=== PATIENT | female | born 1965 | race Caucasian/White ===

== ENCOUNTER 2021-08-19 08:16 | Inpatient (IN) | payer BC, SELFPAY ==
[2021-08-19 08:32] VITALS: BP 121/82; PULSE 104; RESP 16; TEMP 36.8; O2SAT 100; BMI 54.9
--- NOTE | 2021-08-19 09:01 | ED_ITS ---
HPI - Abdominal Pain General Time Seen by Provider: 09:00 Date Seen: 08/19/21 Chief Complaint: Abdominal Pain Stated Complaint: Diverticulitis Attack Time Seen by Provider: 08/19/21 08:24 Source: patient and old records reviewed Mode of arrival: ambulatory Limitations: no limitations History of Present Illness HPI narrative: 55-year-old female with history of sigmoiddiverticulitis with microperforation for the 1st time in March of 2021 that necessitated hospitalization returns to the emergency room today for right lower quadrant pain. Patient notes that she was hospitalized and placed on Zosyn but then had an allergy to Zosyn. She was then switched to ertapenem. She recovered but since that time has been experiencing ongoing nausea that has been fairly persistent. And when she walks she does get right lower quadrant pain. She notes the onset of right lower quadrant pain with no activity last night with associated nausea and significant pain. She tried to use acetaminophen but it did not help. She did not have any antibiotics at home to start on. She notes that she finally did see the GI specialist last week and is scheduled for a CT scan 1 week from today. The plan was then to follow up with colonoscopy. Her last colonoscopy was many years ago but it was normal. She has not had any diarrhea, blood in her stool, fever but has been experiencing some chills. She is otherwise healthy. MD elicited complaint: abdominal pain Pertinent past history: constipation and diverticulitis Onset (ago): day(s) ( Last evening.) Pain Consistency: constant Location: RLQ Severity: moderate Quality: cramping and sharp Radiation: back Migration to: other ( Across the entire lower abdomen.) Exacerbating factors: movement Relieving factors: rest Context: history of similar episodes ( March 2021) Associated symptoms: nausea, vomiting ( denies), diarrhea ( denies), fever ( denies), chills and constipation Treatments prior to arrival: other ( acetaminophen last night 2200 hours) Related Data Hx Last Menstrual Period: menopausal Patient : No Home Medications Medication Instructions Recorded Confirmed estradiol 0.05 mg/24 hr weekly 08/19/21 transdermal patch estradiol 10 mcg vaginal tablet mcg VAGINAL 08/19/21 progesterone micronized 100 mg mg 08/19/21 capsule Allergies Allergy/AdvReac Type Severity Reaction Status Date / Time piperacillin [From Zosyn] Allergy Severe Rash Verified 08/19/21 08:39 tazobactam [From Zosyn] Allergy Severe Rash Verified 08/19/21 08:39 Review of Systems Status of ROS Reports: 10 or more systems reviewed and unremarkable except as noted in History and below Const Reports: chills and fatigue GI Reports: abdominal pain, nausea, constipation and bloating Endo Reports: fatigue PFSH PFS Social History Smoking Status: Never smoker Do you use any of these nicotine containing products: None Second hand tobacco smoke exposure: No How often do you have a drink containing alcohol: monthly or less How many standard drinks containing alcohol do you have on a typical day: 1 or 2 How often do you have six or more drinks on one occasion: Never AUDIT-C Alcohol total score: 1 Non-prescribed substance use: denies use service: No Exam Narrative: Exam Narrative: Const: Vital Signs, click to edit/add: Vital Signs - 24 hr 08/19/21 08:32 Temperature 98.2 F Pulse Rate [Right Pulse Oximeter] 104 H Respiratory Rate 16 Blood Pressure [Ri ght Upper Arm] 121/82 Pulse Oximetry 100 Documenting provider has reviewed patient's vital signs: yes Common normals: average body habitus, oriented x3, no limitations and well nourished General appearance: cooperative and in distress mild Other: very guarded in movement. HENMT: Common normals: head/scalp atraumatic and external ears normal Head and scalp: atraumatic Face and sinus: normal facial exam General ear: hearing grossly impaired External ear: external ears normal Mouth: oral and palatal mucosa normal Throat: posterior oropharynx normal Eye: Common normals: PERRL and conjunctivae normal General eye: normal appearance of both eyes Eyelid: eyelids normal Conjunctiva: conjunctiva(e) normal Sclera: sclerae normal Pupil: PERRL Neck & C-Spine: Common normals: full ROM, no lymphadenopathy and supple Lymph: Lymphatic: no lymphadenopathy noted Chest: Chest: symmetrical chest wall rise Resp: Common normals: normal respiratory effort, no retractions and clear to auscultation bilaterally Auscultation: clear to auscultation bilaterally Cardio: Common normals: regular rate and regular rhythm Rate: regular rate Rhythm: regular rhythm GI: Common normals: soft to palpation and no masses Auscultation: hypoactive bowel sounds Palpation: soft and rebound tenderness present Rectal Exam - Female: deferred Other: Patient has no abdominal pain with straight leg raise internal external rotation of the hip. : Common normals: no CVA tenderness Bladder/kidney exam: no CVA tenderness Back & Pelvis: Common normals: no CVA tenderness Neuro: Common normals: oriented x3 Psych: Common normals: mental status grossly normal, thought process normal and speech normal Appearance: grossly normal Activity/motor behavior: appropriate eye contact Speech: normal speech Thought process: normal thought process Skin: Common normals: no rashes or lesions noted General skin exam: no rashes or lesions noted Course Course Hospital Course: Patient is noted to be feeling better after morphine, fluids and Zofran. Vital Signs Vital signs: Initial Vital Signs Temperature 98.2 F 08/19/21 08:32 Temperature Source Temporal Artery Scan 08/19/21 08:32 Pulse Rate 104 H 08/19/21 08:32 Respiratory Rate 16 08/19/21 08:32 Blood Pressure 121/82 08/19/21 08:32 Blood Pressure Mean 95 08/19/21 08:32 Blood Pressure Position Sitting 08/19/21 08:32 Pulse Oximetry 100 08/19/21 08:32 Oxygen Delivery Method 08/19/21 08:32 Vital Signs Temperature 98.2 F 08/19/21 08:32 Pulse Rate 104 H 08/19/21 08:32 Respiratory Rate 16 08/19/21 08:32 Blood Pressure 121/82 08/19/21 08:32 Pulse Oximetry 100 08/19/21 08:32 Temperature 98.2 F 08/19/21 08:32 Pulse Rate 104 H 08/19/21 08:32 Respiratory Rate 16 08/19/21 08:32 Blood Pressure 121/82 08/19/21 08:32 Pulse Oximetry 100 08/19/21 08:32 MDM - Abdominal Pain Differential Diagnosis Differential diagnosis: Likely acute appendicitis, constipation, diverticulitis and small bowel obstruction Medical Records Attestation: I reviewed the patient's medical records. Lab Data Lab results narrative: Patient noted to have a leukocytosis to 12.37 but fortunately lactate is normal. CRP is pending. Labs: Lab Results 08/19/21 08/19/21 08/19/21 Range/Units 09:55 09:55 09:55 WBC 12.37 H (4.50-11.00) K/uL RBC 4.99 (4.00-5.20) m/uL Hgb 14.7 (12.0-16.0) gm/dL Hct 44.0 (33.0-51.0) % MCV 88 (80-100) fL MCH 30 (26-34) pg MCHC 33 (32-36) gm/dL RDW Coeff of Jason 12.7 (11.5-15.5) % Plt Count 211 (140-440) K/uL Neut % (Auto) 83.2 H (42.0-72.0) % Lymph % (Auto) 10.8 L (20-44) % [place] % (Auto) 5.6 (0.0-11.0) % Eos % (Auto) 0.2 (0.0-7.0) % Baso % (Auto) 0.1 (0.0-3.0) % Neut # (Auto) 10.30 H (1.7-7.0) K/uL Lymph # (Auto) 1.30 (0.90-2.90) K/uL [place] # (Auto) 0.70 (0.00-0.90) K/UL Eos # (Auto) 0.00 (0.00-0.50) K/uL Baso # (Auto) 0.00 (0.00-0.30) K/uL Abs Immat Gran (auto) 0.01 (0.00-0.30) K/uL Sodium 133 L (135-149) mmol/L Potassium 3.9 (3.6-5.1) mmol/L Chloride 102 (96-114) mmol/L Carbon Dioxide 24 (20-32) mmol/L BUN 14 (7-30) mg/dL Creatinine 0.7 (0.5-1.5) mg/dL Estimated Creat Clear 79.34 Glucose 117 H (60-115) mg/dL Lactate 0.8 (0.5-1.9) mmol/L Calcium 9.5 (8.4-10.6) mg/dL Total Bilirubin 1.0 (0.1-1.5) mg/dL AST 21 (12-35) U/L ALT 17 (4-35) U/L Alkaline Phosphatase 70 (40-150) U/L Total Protein 7.0 (6.0-8.3) g/dL Albumin 4.2 (3.3-5.0) g/dL Amylase 72 (18-89) U/L Lipase (23-300) U/L Urine Color (Yellow) Urine Appearance (Clear) Urine pH (5.0-8.5) Ur Specific [place] (1.000-1.030) Urine Protein (Negative) Urine Glucose (UA) (Negative) Urine Ketones (Negative) Urine Blood (Negative) Urine Nitrite (Negative) Urine Bilirubin (Negative) Urine Urobilinogen (0.2-1.0) Ur Leukocyte Esterase (Negative) Urine RBC (0-2) Urine WBC (0-5) Ur Squamous Epith Cells (None-Few) Urine Bacteria (None) 08/19/21 08/19/21 Range/Units 09:55 10:00 WBC (4.50-11.00) K/uL RBC (4.00-5.20) m/uL Hgb (12.0-16.0) gm/dL Hct (33.0-51.0) % MCV (80-100) fL MCH (26-34) pg MCHC (32-36) gm/dL RDW Coeff of Jason (11.5-15.5) % Plt Count (140-440) K/uL Neut % (Auto) (42.0-72.0) % Lymph % (Auto) (20-44) % [place] % (Auto) (0.0-11.0) % Eos % (Auto) (0.0-7.0) % Baso % (Auto) (0.0-3.0) % Neut # (Auto) (1.7-7.0) K/uL Lymph # (Auto) (0.90-2.90) K/uL [place] # (Auto) (0.00-0.90) K/UL Eos # (Auto) (0.00-0.50) K/uL Baso # (Auto) (0.00-0.30) K/uL Abs Immat Gran (auto) (0.00-0.30) K/uL Sodium (135-149) mmol/L Potassium (3.6-5.1) mmol/L Chloride (96-114) mmol/L Carbon Dioxide (20-32) mmol/L BUN (7-30) mg/dL Creatinine (0.5-1.5) mg/dL Estimated Creat Clear Glucose (60-115) mg/dL Lactate (0.5-1.9) mmol/L Calcium (8.4-10.6) mg/dL Total Bilirubin (0.1-1.5) mg/dL AST (12-35) U/L ALT (4-35) U/L Alkaline Phosphatase (40-150) U/L Total Protein (6.0-8.3) g/dL Albumin (3.3-5.0) g/dL Amylase (18-89) U/L Lipase 86 (23-300) U/L Urine Color Yellow (Yellow) Urine Appearance Clear (Clear) Urine pH 8.0 (5.0-8.5) Ur Specific [place] 1.015 (1.000-1.030) Urine Protein Negative (Negative) Urine Glucose (UA) Negative (Negative) Urine Ketones 2+ A (Negative) Urine Blood Negative (Negative) Urine Nitrite Negative (Negative) Urine Bilirubin Negative (Negative) Urine Urobilinogen 0.2 (0.2-1.0) Ur Leukocyte Esterase Negative (Negative) Urine RBC 0-2 (0-2) Urine WBC 0-2 (0-5) Ur Squamous Epith Cells Few (None-Few) Urine Bacteria Few A (None) Imaging Data CT scan - abdomen: My impression: Recurrence of diverticulitis, sigmoid colon. Radiologist's impression: Diverticulitis with microperforation with no evidence of abscess. Discharge Plan Discharge Clinical Impression: Diverticulitis Patient Disposition: Admitted As Inpatient Condition: Stable Activity Level: Activity as Tolerated Discharge Diet: Other Diet Detail: npo
--- NOTE | 2021-08-19 09:27 | CT_ITS ---
Final Report Patient: SAVANNAH JOHNSON Facility:?[facility] Patient ID:?[id number] Site Patient ID:?[id number]. Site :?[id number] Study:?CT Abdomen/Pelvis W/ 71CC [id number] 10:21:03 AM Ordering Physician:?Jody Ford Final Report: INDICATION: Diverticulitis. TECHNIQUE: CT of the abdomen and pelvis with 71 cc Isovue 370 IV contrast. Coronal and sagittal reconstructions. COMPARISON: CT of the abdomen and pelvis 04/13/2021. FINDINGS: Mild diffuse hepatic steatosis. The gallbladder, spleen, pancreas, and adrenal glands are negative. No biliary dilation. Hepatic and portal veins are patent. Symmetric enhancement of the kidneys. Tiny low-attenuation lesion in the lower pole of the left kidney is likely a cyst. No hydronephrosis or ureteral dilation. No obstructing urinary calculi identified. The bladder is normal in appearance. Retroverted uterus. There is focal wall thickening in the distal sigmoid colon with surrounding inflammatory fat stranding (series 2 images 102-107 and series 4, image 37). There are extraluminal gas locules along the right aspect of the sigmoid colon extending to the right pelvic sidewall compatible with localized perforation. No generalized free air. No free-fluid or evidence of abscess. This is in a similar location to prior exam. Negative appendix. No small bowel dilation. Moderate wall thickening of the gastric antrum is likely inflammatory. No lymphadenopathy. The bones are unremarkable. The lung bases are clear. IMPRESSION: 1. Focal wall thickening in the distal sigmoid colon with surrounding inflammatory fat stranding and localized perforation. No evidence of abscess. This is in a similar location to prior exam. Findings likely represent perforated diverticulitis, however colonoscopy is recommended to exclude an underlying mass. 2. Moderate wall thickening of the gastric antrum is likely inflammatory. 3. Mild diffuse hepatic steatosis. Please note that all CT scans at this facility use dose modulation, iterative reconstruction, and/or weight-based dosing when appropriate to reduce radiation dose to as low as reasonably achievable. Dictated by Clover Martinez MD @ 08/19/2021 10:48:21 AM ----- ADDENDUM ----- The report was faxed and confirmed received with Liliana Vera at 10:49 a.m. on 08/19/2021. Dictated by Clover Martinez MD @ Aug 19 2021 11:26AM (Electronic Signature)
[2021-08-19] MEDS: MORPHINE 4 MG/ML INJ IVP (09:57)
[2021-08-19] MEDS: ONDANSETRON 2 MG/ML inj 4 MG IVP ×2 (09:58→15:22)
[2021-08-19] MEDS: 0.9 % SODIUM CHLORIDE 1000 ml 1,000 ML IV (09:59)
[2021-08-19 10:10] LABS: Slide Review Reflex No
[2021-08-19 10:11] LABS: Lactate* 0.8 mmol/L (0.5-1.9)
[2021-08-19 10:16] LABS: Basophils Percent Auto 0.1 % (0.0-3.0); Eosinophils Percent Auto 0.2 % (0.0-7.0); Hemoglobin* 14.7 gm/dL (12.0-16.0); Immature Granulocytes Abs Auto 0.01 K/uL (0.00-0.30); Lymphocytes Percent Auto 10.8 % (20-44); Mean Corpuscular HGB Conc 33 gm/dL (32-36); Mean Corpuscular Hemoglobin 30 pg (26-34); Mean Corpuscular Volume 88 fL (80-100); Monocytes Percent Auto 5.6 % (0.0-11.0); Neutrophils Percent Auto 83.2 % (42.0-72.0); Platelet Count* 211 K/uL (140-440); RDW Coefficient of Variation % 12.7 % (11.5-15.5); Red Blood Count 4.99 m/uL (4.00-5.20); White Blood Count* 12.37 K/uL (4.50-11.00)
[2021-08-19 10:21] LABS: Appearance Urine Clear (Clear); Bilirubin Urine Negative (Negative); Blood Urine Negative (Negative); Color Urine Yellow (Yellow); Glucose Urine Negative (Negative); Ketones Urine 2+ (Negative); Leukocyte Esterase Urine Negative (Negative); Nitrite Urine Negative (Negative); Protein Urine Negative (Negative); Specific Gravity Urine 1.015 (1.000-1.030); Urobilinogen Urine 0.2 (0.2-1.0)
[2021-08-19 10:29] LABS: RBC Urine 0-2 (0-2); WBC Urine 0-2 (0-5)
[2021-08-19 10:30] LABS: Bacteria Urine Few; Squamous Epithelial Cell Urine Few (None-Few)
[2021-08-19 10:36] LABS: Albumin* 4.2 g/dL (3.3-5.0); Chloride* 102 mmol/L (96-114)
[2021-08-19 10:37] LABS: Potassium* 3.9 mmol/L (3.6-5.1); Sodium* 133 mmol/L (135-149)
[2021-08-19 10:39] LABS: Amylase* 72 U/L (18-89); Aspartate Amino Transferase* 21 U/L (12-35); Carbon Dioxide* 24 mmol/L (20-32); Creatinine* 0.7 mg/dL (0.5-1.5); Est. Creatinine Clearance* 79.34; Estimated Glomerular Filt Rate 102.71; Lipase* 86 U/L (23-300)
[2021-08-19 10:40] LABS: Alanine Aminotransferase* 17 U/L (4-35); Alkaline Phosphatase* 70 U/L (40-150); Blood Urea Nitrogen* 14 mg/dL (7-30); Calcium* 9.5 mg/dL (8.4-10.6); Glucose* 117 mg/dL (60-115)
[2021-08-19 11:51] VITALS: BP 105/71; PULSE 83; RESP 18; O2SAT 97
[2021-08-19] MEDS: ERTAPENEM 1 GM in 0.9 % SODIUM CHLORIDE Mini-bag 100 ML IVPB (11:59)
[2021-08-19 12:05] LABS: C Reactive Protein* 4.2 mg/dL (0.5-1.0)
[2021-08-19 12:44] VITALS: BP 117/72; PULSE 85; RESP 16; TEMP 37.3; O2SAT 100; O2SAT 99; BMI 158.7
[2021-08-19 13:28] LABS: SARS Antigen* negative
[2021-08-19] MEDS: fentaNYL 100 MCG/2 ML inj 50 MCG IVP (13:48)
--- NOTE | 2021-08-19 14:30 | P.IMHP_ITS ---
Hospitalist- H&P: HPI History of Present Illness Date Seen: 08/19/21 Chief complaint: Diverticulitis Attack Narrative: Blossom Horta is a 55 year old female presents emergency room with 1 day history of severe low abdominal pain and right flank pain. Previous history of sigmoid diverticulitis with perforation in March 2021 with similar symptoms at that time. She was treated with a prolonged course of ertapenem and recovered. However she reports she has on and off episodes of right abdomen and flank pain especially when she is going for a walk and relatively persistent nausea since that time. She had a flare of symptoms in mid June and was prescribed Cipro and Flagyl for empiric treatment of diverticulitis. She elected not to take the antibiotics and got better anyway. She has not had a fever. She has had fairly severe nausea. She gets quite a bit of pain when she eats and so has had minimal p.o. intake. She does have a history of problems with constipation. She has been managing this with fiber supplementation and probiotics. She mostly has a bowel movement every day but has had a couple occasions where she has gone up to 9 days without a bowel movement. She had colonoscopy in August of 2019 showing 2- 3 mm polyps which were tubular adenomas. Last week she saw a senior procurement manager from [place] [facility], Dr. Valencia, and had basic blood tests including a normal CBC and basic metabolic panel. She was also screened for celiac disease which was negative. Review of Systems Narrative: Patient reports that she has been doing well other than her gastrointestinal symptoms. She has had no respiratory illness, fever, chest pain. She has not had vomiting though she has had persistent nausea. She has had no urinary problems. Complete review of systems is otherwise unremarkable except as noted above 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 Highest level of school completed/degree received: high school graduate Smoking Status: Never smoker Do you use any of these nicotine containing products: None Second hand tobacco smoke exposure: No How often do you have a drink containing alcohol: monthly or less How many standard drinks containing alcohol do you have on a typical day: 1 or 2 How often do you have six or more drinks on one occasion: Never AUDIT-C Alcohol total score: 1 Non-prescribed substance use: denies use Caffeine: Yes service: No Meds Home Medications and Allergies Home Medications Medication Instructions Recorded Confirmed Type Lactobacillus acidophilus 10 10 mg PO DAILY 08/19/21 08/19/21 History billion cell capsule (Probiotic) PROBIOTIC AND PREBIOTIC 1 sc PO DAILY 08/19/21 08/19/21 History estradiol 0.05 mg/24 hr weekly 1 patch TOPICAL .WEEKLY 08/19/21 08/19/21 History transdermal patch estradiol 10 mcg vaginal tablet 10 mcg VAGINAL 2XW 08/19/21 08/19/21 History multivitamin 1 tab PO DAILY 08/19/21 08/19/21 History progesterone micronized 100 mg 100 mg PO DAILY 08/19/21 08/19/21 History capsule Allergies Allergy/AdvReac Type Severity Reaction Status Date / Time piperacillin [From Zosyn] Allergy Severe Rash Verified 08/19/21 08:39 tazobactam [From Zosyn] Allergy Severe Rash Verified 08/19/21 08:39 Exam Narrative: Exam Narrative: She is alert and appears in no distress when I initially see her but through the history and physical she does have episodes where she reports sharp pain and hold her hand on her right abdomen and right flank. Head is normal. Eyes normal. Sclerae nonicteric. Oropharynx is normal. Mucous membranes are dry. Neck is supple without mass or adenopathy. Respirations are clear to auscultation. Breathing is unlabored. Cardiovascular: S1, S2, regular rate a nd rhythm. No murmur gallop or rub. Abdomen: Bowel sounds active. Abdomen is soft. She has pelvic pain with palpation in the epigastrium and in the right side of her abdomen. Very tender with palpation in the suprapubic area. She has no CVA tenderness. External genitalia normal. Extremities without edema. Good peripheral pulses and good capillary refill. Const: Vital Signs, click to edit/add: Vital Signs - 24 hr 08/19/21 08:32 08/19/21 11:51 08/19/21 12:44 Temperature 98.2 F 99.2 F Pulse Rate [Pulse Oximeter] 85 Pulse Rate [Right Pulse Oximeter] 104 H 83 Respiratory Rate 16 18 16 Blood Pressure [Ri ght Arm] 117/72 Blood Pressure [Ri ght Upper Arm] 121/82 105/71 Pulse Oximetry 100 97 99 Documenting provider has reviewed patient's vital signs: yes Hospitalist - H&P: Result Labs Labs: Short CBC 08/19/21 Range/Units 09:55 WBC 12.37 H (4.50-11.00) K/uL Hgb 14.7 (12.0-16.0) gm/dL Hct 44.0 (33.0-51.0) % Plt Count 211 (140-440) K/uL BMP 08/19/21 09:55 Sodium 133 L Potassium 3.9 Chloride 102 Carbon Dioxide 24 BUN 14 Creatinine 0.7 Glucose 117 H Calcium 9.5 Liver Function 08/19/21 Range/Units 09:55 Total Bilirubin 1.0 (0.1-1.5) mg/dL AST 21 (12-35) U/L ALT 17 (4-35) U/L Alkaline Phosphatase 70 (40-150) U/L Albumin 4.2 (3.3-5.0) g/dL Urine 08/19/21 Range/Units 10:00 Urine Color Yellow (Yellow) Urine Appearance Clear (Clear) Urine pH 8.0 (5.0-8.5) Ur Specific [place] 1.015 (1.000-1.030) Urine Protein Negative (Negative) Urine Glucose (UA) Negative (Negative) Assessment and Plan Assessment and plan (1) Diverticulitis: Problem comment: diverticulitis with micro perforation in March 2021 and July 2021. Status: Acute Assessment and Plan: IV ertapenem initially inpatient until she is able to take in p.o. food and fluids and pain is better controlled than probably outpatient IV ertapenem until abdominal pain is resolved. Consult Dr. Strong
[2021-08-19 15:00] VITALS: PULSE 89; RESP 16
--- NOTE | 2021-08-19 15:07 | P.IMHP_ITS ---
Hospitalist- H&P: HPI History of Present Illness Date Seen: 08/19/21 Chief complaint: Diverticulitis Attack Narrative: Blossom Horta is a 55 year old female, Patient has past medical history of sigmoid diverticulitis and microperforation. Patient did need to be admitted to the hospital in March 2019 due to this. Patient states that on and off since that admission she has had some abdominal pain but overnight had severe right lower quadrant abdominal pain so much that she did think she passed out intermittently at night. Patient also reports nausea but no vomiting. States that she has been eating until yesterday afternoon. After last admission patient did see GI last week and was scheduled for CT scan and follow-up colonoscopy. Reports remote history of colonoscopy which was normal in the past. In the ED CT imaging revealed focal wall thickening in the distal sigmoid colon with surrounding inflammatory fat stranding and localized perforation, no evidence of abscess. Findings likely represent perforated diverticulitis, colonoscopy is recommended to exclude underlying mass. Moderate wall thickening of gastric antrum likely inflammatory, mild diffuse hepatic steatosis. Review of Systems Status of ROS: Reports: 10 or more systems reviewed and unremarkable except as noted in History and below [facility] Medical History Chronic neck pain Gastroesophageal reflux disease Irritable bowel syndrome Surgical History History of wisdom tooth extraction Family History Father Alcohol abuse Mother Alcohol abuse Social History Highest level of school completed/degree received: high school graduate Smoking Status: Never smoker Do you use any of these nicotine containing products: None Second hand tobacco smoke exposure: No How often do you have a drink containing alcohol: monthly or less How many standard drinks containing alcohol do you have on a typical day: 1 or 2 How often do you have six or more drinks on one occasion: Never AUDIT-C Alcohol total score: 1 Non-prescribed substance use: denies use Caffeine: Yes service: No Meds Home Medications and Allergies Home Medications Medication Instructions Recorded Confirmed Type Lactobacillus acidophilus 10 10 mg PO DAILY 08/19/21 08/19/21 History billion cell capsule (Probiotic) PROBIOTIC AND PREBIOTIC 1 sc PO DAILY 08/19/21 08/19/21 History estradiol 0.05 mg/24 hr weekly 1 patch TOPICAL .WEEKLY 08/19/21 08/19/21 History transdermal patch estradiol 10 mcg vaginal tablet 10 mcg VAGINAL 2XW 08/19/21 08/19/21 History multivitamin 1 tab PO DAILY 08/19/21 08/19/21 History progesterone micronized 100 mg 100 mg PO DAILY 08/19/21 08/19/21 History capsule Allergies Allergy/AdvReac Type Severity Reaction Status Date / Time piperacillin [From Zosyn] Allergy Severe Rash Verified 08/19/21 08:39 tazobactam [From Zosyn] Allergy Severe Rash Verified 08/19/21 08:39 Exam Const: Vital Signs, click to edit/add: Vital Signs - 24 hr 08/19/21 08:32 08/19/21 11:51 08/19/21 12:44 Temperature 98.2 F 99.2 F Pulse Rate [Pulse Oximeter] 85 Pulse Rate [Right Pulse Oximeter] 104 H 83 Respiratory Rate 16 18 16 Blood Pressure [Ri ght Arm] 117/72 Blood Pressure [Ri ght Upper Arm] 121/82 105/71 Pulse Oximetry 100 97 99 Documenting provider has reviewed patient's vital signs: yes Common normals: oriented x3 Exam limitations: altered mental status General appearance: cooperative and comfortable HENMT: Common normals: normocephalic Head and scalp: normocephalic Neuro: Common normals: oriented x3 Hospitalist - H&P: Result Labs Labs: Short CBC 08/19/21 Range/Units 09:55 WBC 12.37 H (4.50-11.00) K/uL Hgb 14.7 (12.0-16.0) gm/dL Hct 44.0 (33.0-51.0) % Plt Count 211 (140-440) K/uL BMP 08/19/21 09:55 Sodium 133 L Potassium 3.9 Chloride 102 Carbon Dioxide 24 BUN 14 Creatinine 0.7 Glucose 117 H Calcium 9.5 Liver Function 08/19/21 Range/Units 09:55 Total Bilirubin 1.0 (0.1-1.5) mg/dL AST 21 (12-35) U/L ALT 17 (4-35) U/L Alkaline Phosphatase 70 (40-150) U/L Albumin 4.2 (3.3-5.0) g/dL Urine 08/19/21 Range/Units 10:00 Urine Color Yellow (Yellow) Urine Appearance Clear (Clear) Urine pH 8.0 (5.0-8.5) Ur Specific [place] 1.015 (1.000-1.030) Urine Protein Negative (Negative) Urine Glucose (UA) Negative (Negative) Assessment and Plan Assessment and plan (1) Diverticulitis: Problem comment: diverticulitis with micro perforation in March 2021 and July 2021 Status: Acute Plan Patient is a 55 Y/O female. Patient comes in due to Acute Diverticulitis. Ertapenem started in the ER, will continue for now. Clear Liquid diet. Advance as tolerated tomorrow if pain is improved. DVT ppx- ambulation Code- Full
--- NOTE | 2021-08-19 15:15 | PC.NURSE ---
Patient was admitted from the ED today at 1225 for Diverticulitis. Patient has 8/10 pain in lower abdomen. Has felt nauseous since she had diverticulitis back in March but it has not been to the point where it stops her from doing things. PIV in left AC. No skin concerns. Bowel sounds hypoactive. LBM 08/18 and it was normal. Patient stated that she has constipation and receives fiber for this. Also has a nodule on her thyroid that she had a biopsied last week but they did not get enough tissue. Will need to f/u on this outpatient. Had covid back in june. Antigen test was negative. Patient is alert and oriented and ambulates independently. VSS. Ramone BACA completed admission assessment. Unable to place orders as they do not have access to new expanse from home. IT and Dr. Raya is aware and IT is working with them to fix this. Recieved a 1 time verbal order for 50mcg of Fentanyl from Dr. Harrell.
[2021-08-19 16:53] VITALS: BP 95/53; PULSE 89; RESP 16; TEMP 37.4; O2SAT 100
[2021-08-19] MEDS: LACTATED RINGERS 1000 ML 1,000 ML 125 ML IV (18:36)
[2021-08-19 18:41] LABS: Basophils Percent Auto 0.1 % (0.0-3.0); Eosinophils Percent Auto 0.1 % (0.0-7.0); Hematocrit 40.5 % (33.0-51.0); Hemoglobin* 13.5 gm/dL (12.0-16.0); Immature Granulocytes Abs Auto 0.02 K/uL (0.00-0.30); Lymphocytes Percent Auto 10.8 % (20-44); Mean Corpuscular HGB Conc 33 gm/dL (32-36); Mean Corpuscular Hemoglobin 30 pg (26-34); Mean Corpuscular Volume 90 fL (80-100); Monocytes Percent Auto 5.4 % (0.0-11.0); Neutrophils Percent Auto 83.5 % (42.0-72.0); Platelet Count* 190 K/uL (140-440); RDW Coefficient of Variation % 12.7 % (11.5-15.5); Red Blood Count 4.51 m/uL (4.00-5.20); White Blood Count* 13.77 K/uL (4.50-11.00)
[2021-08-19 18:46] LABS: Slide Review Reflex No
[2021-08-19] MEDS: HYDROmorphone 2 MG TABLET PO ×2 (18:49→20:48)
[2021-08-19 19:02] LABS: Chloride* 103 mmol/L (96-114); Potassium* 4.3 mmol/L (3.6-5.1); Sodium* 133 mmol/L (135-149)
[2021-08-19 19:05] LABS: Carbon Dioxide* 24 mmol/L (20-32); Creatinine* 0.7 mg/dL (0.5-1.5); Est. Creatinine Clearance* 94.28; Estimated Glomerular Filt Rate 102.71
[2021-08-19 19:06] LABS: Blood Urea Nitrogen* 12 mg/dL (7-30); Calcium* 8.9 mg/dL (8.4-10.6); Glucose* 122 mg/dL (60-115)
--- NOTE | 2021-08-19 19:34 | PC.NURSE ---
Pt. alert and oriented x3. Admitted from ED with pain 11/30, here for pain control and on clear diet d/t Diverticulitis flare up started 08/18. One time dose of Fentanyl was administered and pt. reported pain 4/10. After sips of broth and water, pt. reported sharp intense pain greater than 10 and became nauseous. Administered Zofran. Dilaudid was administered for more pain later at 09/30. LR running 125ml/hr. at bedside.
[2021-08-19 20:04] VITALS: BP 108/66; PULSE 94; RESP 18; TEMP 37.7; O2SAT 96
[2021-08-19] MEDS: ENOXAPARIN 40 MG/0.4 ML INJ SUBCUT (20:48)
[2021-08-20] VITALS (10 sets, daily range): BP systolic 99–110; BP diastolic 61–72; PULSE 79–94; RESP 16–18; TEMP 37.1–37.9; O2SAT 97–100
[2021-08-20] MEDS: HYDROmorphone 2 MG TABLET PO ×7 (00:43→22:45)
[2021-08-20] MEDS: LACTATED RINGERS 1000 ML 1,000 ML 125 ML IV ×2 (00:44→09:57)
--- NOTE | 2021-08-20 06:54 | PC.NURSE ---
Shift note: Pt rates pain 8/10, RN treated per eMAR with relief to 3-10, pt is more alert and cheerful this morning.
[2021-08-20 07:48] LABS: Chloride* 104 mmol/L (96-114); Potassium* 4.1 mmol/L (3.6-5.1); Sodium* 135 mmol/L (135-149)
[2021-08-20 07:51] LABS: Creatinine* 0.7 mg/dL (0.5-1.5); Est. Creatinine Clearance* 94.28; Estimated Glomerular Filt Rate 102.71
[2021-08-20] MEDS: ACETAMINOPHEN 325 MG TABLET 650 MG PO (07:51)
[2021-08-20 07:52] LABS: Blood Urea Nitrogen* 9 mg/dL (7-30); Carbon Dioxide* 26 mmol/L (20-32); Glucose* 93 mg/dL (60-115)
[2021-08-20] MEDS: ERTAPENEM 1 GM in 0.9 % SODIUM CHLORIDE Mini-bag 100 ML IVPB (09:01)
--- NOTE | 2021-08-20 10:29 | NUTR.NU ---
Nutrition Update: Patient not appropriate to visit at this time related to diverticulitis diet education. RDN will continue to monitor and attempt to visit at a later date.
--- NOTE | 2021-08-20 10:31 | PM.IMPN1 ---
Progress Note: A&P Assessment and plan (1) Diverticulitis: Problem details: diverticulitis with micro perforation in March 2021 and July 2021. Status: Acute Plan Continue with IV ertapenem. Likely will continue this as an outpatient. General surgery will see her in consultation as an outpatient for scheduling her an elective bowel resection. Subjective Date Seen: 08/20/21 Interval history: LATE ENTRY. DICTATED 09/23, SERVICE WAS 08/20 Daily Progress Note - Hospital Medicine Day #: 2 CC: Continued poor appetite and abdominal distension. However improving from discharge. OVERNIGHT UPDATES FROM STAFF & MED, LAB, IMAGING UPDATES Overnight Blossom had no new fevers. She continued to have some abdominal pain and distension. She is tolerating some sips of clears. She feels overall somewhat improved. Review of Systems: See subjective Cardiac: No new chest pain/pressure/palpitations. Respiratory: no new dyspnea. GI: Continued abdominal distension and pain Objective: Vitals: see above Lungs: Clear. Cardiac: S1S2. Abdomen: Tender to palpation without signs of rebound or acute abdomen. Disposition/Potential discharge - Likely to return to previous living situation. Total time is 15 minutes with greater than 50% spent in counseling and coordination of care.
--- NOTE | 2021-08-20 15:03 | PC.NURSE ---
07-1500: Pt. up indep. in room and yepez this shift. Abdominal pain is tender w/and w/out touch, rated 4-8/10, worse after walking. Low grade temp up to 100.3 this morning, 100.2 1.5 hrs after acetaminophen. 99 degrees later when reassessed. Noting ongoing headache, not really alleviated w/meds. Ice pack, repositioning, aqua-k pad, small amt of coffee, and aromatherapy helpful but did not resolve symptoms. Update left for MD on clipboard. Pt. passing flatus. Tolerated fruit ice, broth, water today. IV patent and running. Mixed gram positive allan noted in urine culture, updated; no new orders. Report to KEMI Santos.
[2021-08-20] MEDS: KETOROLAC 30 MG/ML inj IVP (18:21)
[2021-08-20] MEDS: ENOXAPARIN 40 MG/0.4 ML INJ SUBCUT (20:34)
[2021-08-20] MEDS: Progesterone Micronized 100 mg capsule PO (20:35)
[2021-08-20] MEDS: SODIUM CHLORIDE 0.9 % (FLUSH) 10 ML SYRINGE 5 ML IVF (20:37)
[2021-08-21] MEDS: HYDROmorphone 2 MG TABLET PO ×4 (00:39→11:16)
[2021-08-21] MEDS: KETOROLAC 30 MG/ML inj 15 MG IVP ×3 (00:39→12:53)
[2021-08-21 03:09] VITALS: BP 97/65; PULSE 80; RESP 16; TEMP 36.9; O2SAT 97
--- NOTE | 2021-08-21 05:12 | PC.NURSE ---
NURSE NOTE 19-: Pt is pleasant and cooperative, A&O. T-max 99.2F. Oxygen saturations in the high 90's on room air. Pt reports good pain control from PRN Dilaudid and scheduled Toradol. Pt up independent, taking several walks around the unit. Pt tolerating a clear liquid diet, denies N/V. Denies SOB and CP. Pt hopeful to d/c home today.
[2021-08-21 07:29] LABS: HCO3 VBG 30 mmol/L (21-28); Hematocrit 33.9 % (33.0-51.0); Mean Corpuscular HGB Conc 32 gm/dL (32-36); Mean Corpuscular Hemoglobin 30 pg (26-34); Mean Corpuscular Volume 93 fL (80-100); PCO2 VBG 53 mmHG (40-50); PO2 VBG 28.8 mmHG (25-47); Platelet Count* 167 K/uL (140-440); Red Blood Count 3.66 m/uL (4.00-5.20); White Blood Count* 7.96 K/uL (4.50-11.00); pH VBG 7.353 (7.32-7.43)
[2021-08-21 07:45] LABS: Slide Review Reflex No
[2021-08-21 07:50] LABS: Albumin* 3.1 g/dL (3.3-5.0); Chloride* 104 mmol/L (96-114); Sodium* 134 mmol/L (135-149)
[2021-08-21 07:51] LABS: Potassium* 4.4 mmol/L (3.6-5.1)
[2021-08-21 07:53] LABS: Aspartate Amino Transferase* 17 U/L (12-35); Bilirubin Total* 0.5 mg/dL (0.1-1.5); Blood Urea Nitrogen* 7 mg/dL (7-30); Carbon Dioxide* 29 mmol/L (20-32); Creatinine* 0.6 mg/dL (0.5-1.5); Est. Creatinine Clearance* 92.56; Total Protein* 5.6 g/dL (6.0-8.3)
[2021-08-21 07:54] LABS: Alanine Aminotransferase* 10 U/L (4-35); Alkaline Phosphatase* 48 U/L (40-150); Calcium* 8.6 mg/dL (8.4-10.6); Glucose* 96 mg/dL (60-115); Lipase* 70 U/L (23-300)
[2021-08-21 08:30] VITALS: BP 104/74; PULSE 77; RESP 18; TEMP 36.7; O2SAT 100
[2021-08-21 08:33] LABS: C Reactive Protein* 14.1 mg/dL (0.5-1.0)
[2021-08-21] MEDS: SODIUM CHLORIDE 0.9 % (FLUSH) 10 ML SYRINGE 5 ML IVF ×2 (10:02→12:54)
[2021-08-21] MEDS: ERTAPENEM 1 GM in 0.9 % SODIUM CHLORIDE Mini-bag 100 ML IVPB (10:03)
--- NOTE | 2021-08-21 10:03 | NUTR.NU ---
RDN visited with patient regarding diet for diverticulitis. Patient was received diet education during past hospital visit for diverticulitis on 04/15/21. Patient declined receiving diet educational materials at this time. She reportsstill having the education materials at home from previous visit education including low-fiber and high-fiber nutrition therapy, and RDN's contact information. RDN recommended patient follow a low fiber diet for ~4 weeks or per MD recommendatiosn, and then following a high fiber diet (25-35 grams/day) long-term by slowly increasing grams of fiber daily until goal is met.? She had no questions or concerns at this time.
--- NOTE | 2021-08-21 10:50 | PM.DS1 ---
DS: Providers Provider Time Seen by Provider: 10:49 Date Seen: 08/21/21 Date of admission: 08/19/21 11:48 Primary care physician: Zachary Green PA-C Admitting Clinician: Lyndsay Raya MD Consults: 08/19/21 16:58 Consult to Physician [CONS] Routine Comment: Consulting Provider: Deandre Strong Has provider been notified: Yes Attending Physician on discharge: MD Augustin Harper MD Date of Discharge: 08/21/21 DS: Diagnosis Discharge Diagnosis (1) Diverticulitis: Status: Acute Problem details: diverticulitis with micro perforation in March 2021 and July 2021. DS: Summary Hospital Course Hospital Course: Patient is noted to be feeling better after morphine, fluids and Zofran. Status at Discharge Functional status at discharge: independent ambulation Time Spent with Patient Time attestation: Total time spent providing and/or coordinating discharge services: Time spent: Greater than 30 minutes Exam Narrative: Exam Narrative: 55-year-old female admitted to the hospital with abdominal pain. Initial evaluation showed she had recurrence of perforated diverticulitis in her sigmoid colon. Similar previous episode occurred in March 2021. she was treated with ertapenem and had gradual improvement in her pain the still reporting low abdominal pain today. She also had some symptoms of bladder irritability thought secondary to her inflamed sigmoid colon. Urinalysis was unremarkable. She is currently eating a full liquid diet without increased pain. She has yet to have a bowel movement. Examination today: She is alert and appears in no distress. Breathing is unlabored. Abdomen with bowel sounds are present. Abdomen is soft with still mild to moderate low abdominal tenderness but much improved since admission. Const: Vital Signs, click to edit/add: Vital Signs - 24 hr 08/20/21 11:40 08/20/21 17:21 08/20/21 17:24 Temperature 100 F H 98.9 F Pulse Rate [Pulse Oximeter] 79 79 87 Respiratory Rate 16 16 18 Blood Pressure [Ri ght Arm] 99/67 109/67 Pulse Oximetry 97 100 08/20/21 19:45 08/20/21 23:00 08/21/21 03:09 Temperature 99 F 99.2 F 98.4 F Pulse Rate [Pulse Oximeter] 90 90 80 Respiratory Rate 18 18 16 Blood Pressure [Ri ght Arm] 107/61 104/68 97/65 Pulse Oximetry 99 98 97 Documenting provider has reviewed patient's vital signs: yes DS: Data Data Completed and Pending Labs on day of discharge: Labs from last 24 hours 08/21/21 08/21/21 08/21/21 06:47 06:47 06:47 WBC 7.96 RBC 3.66 L Hgb 11.0 L Hct 33.9 MCV 93 MCH 30 MCHC 32 Plt Count 167 VBG pH 7.353 VBG pCO2 53 H VBG pO2 28.8 VBG HCO3 30 H Sodium 134 L Potassium 4.4 Chloride 104 Carbon Dioxide 29 BUN 7 Creatinine 0.6 Estimated Creat Clear 92.56 Glucose 96 Calcium 8.6 Ionized Calcium Jay 1.20 Total Bilirubin 0.5 AST 17 ALT 10 Alkaline Phosphatase 48 C-Reactive Protein 14.1 H Total Protein 5.6 L Albumin 3.1 L Lipase 70 Discharge Plan Discharge Disposition: Home, Self-Care Date of Admission: 08/19/21 11:48 Attending Provider on Discharge: Ted Bill Consulting Providers: Deandre Strong Primary Care Provider: Zachary Green Condition: Stable Anticipated Discharge Date/Time: 08/21/21 11:03 Discharge Medications: New polyethylene glycol 3350 [Miralax] 17 gram Powder In Packet 17 g PO BID Qty: 237 0RF hydromorphone 2 mg Tablet 2 mg PO Q4H PRNQty: 20 0RF senna 8.6 mg capsule 8.6 mg PO BID Qty: 60 0RF Continued estradiol 0.05 mg/24 hr patch weekly 1 patch topical .WEEKLY 0RF Label Comments: APPLY ONE PATCH EXTERNALLY WEEKLY Rx Instructions: CHANGES ON TUESDAY progesterone micronized 100 mg capsule 100 mg PO DAILY 0RF Label Comments: TAKE 1 CAPSULE BY MOUTH ONE TIME DAILY estradiol 10 mcg tablet 10 mcg VAGINAL 2XW 0RF Label Comments: INSERT 1 TABLET VAGINALLY TWICE WEEKLY Rx Instructions: INSERTS TUE AND multivitamin Tablet 1 tab PO DAILY 0RF PROBIOTIC AND PREBIOTIC 1 sc PO DAILY 0RF Rx Instructions: POWDER Probiotic 10 billion cell capsule 10 mg PO DAILY 0RF Discharge Orders: Discharge Order (Routine); Ordered 08/21/21 Ordered By: Ted Bill Patient Education: Diverticulitis (DC) Activity Level: No Restrictions and Activity as Tolerated Discharge Diet: Low Fiber and Other Diet Detail: low fiber diet for 1 week then high-fiber diet Referrals: Deandre Strong MD [Staff Physician] - ( In 1 week) Forms: [employer] Info Instructions Discharge Comment: outpatient IV antibiotic, ertapenem for 1 week.
[2021-08-21] MEDS: polyethylene glycoL 3350 17 GM PACK PO (11:16)
[2021-08-21 12:00] VITALS: BP 109/73; PULSE 71; RESP 16; TEMP 36.6; O2SAT 99
--- NOTE | 2021-08-21 15:43 | PC.NURSE ---
VSS AND AFEBRILE. PATIENT'S DIET ADVANCED TO LOW FIBER BY LUNCHTIME AND PATIENT HAS TOLERATED DIET WELL WITH NO C/O N/V. ABDOMINAL PAIN CONTROLLED WITH PO DILAUDID AND IV TORADOL. PATIENT AMBULATING FREQUENTLY IN HALLWAY. PATIENT'S SL DC'D AND PLAN IS TO DC WHEN HER CAN PICK HER UP.
--- NOTE | 2021-08-21 20:18 | PC.NURSE ---
1730: reviewed dc instructions with pt . copies of dc instructions given at dc. Belongings reviewed and sent with pt at pa. No IV at pa.
--- NOTE | 2021-09-15 15:32 | PM.IMPN1 ---
Progress Note: A&P Assessment and plan (1) Diverticulitis: Problem details: diverticulitis with micro perforation in March 2021 and July 2021. Status: Acute Assessment and Plan: Clinically improved. Continue inpatient IV antibiotic and pain management. Anticipate discharge to outpatient IV antibiotic in the next couple days. Subjective Date Seen: 08/20/21 Interval history: 55-year-old female seen in followup of hospital admission for recurrent diverticulitis. She reports feeling a little better. Pain is improved. She is tolerating some p.o.. Exam Narrative: Exam Narrative: She is alert and appears in no distress. Still reporting some pain on her right side of her abdomen. Respirations are clear to auscultation. Cardiovascular: S1, S2, regular rate and rhythm. Abdomen: Bowel sounds active. Abdomen is soft. Still moderate tenderness in her suprapubic area. No edema. Good peripheral perfusion. Const: Documenting provider has reviewed patient's vital signs: yes
== END 2021-08-21 17:28 | disposition home or self-care (01) | DRG 244 ==
LOC: ED 11:33 → MEDSURG 11:55
PROVIDERS: Family Medicine; Internal Medicine; Admitting Provider Family Medicine; Emergency Provider Family Medicine; PCP Physician Assistant Medical; Visit Provider Family Medicine
DX: K57.20 Diverticulitis of large intestine with perforation and abscess without bleeding (principal); K76.0 Fatty (change of) liver, not elsewhere classified; K21.9 Gastro-esophageal reflux disease without esophagitis; G89.29 Other chronic pain; M54.2 Cervicalgia; K58.9 Irritable bowel syndrome, unspecified
CPT/HCPCS: 36415; 74177; 80048; 80053; 81001; 82150; 82330; 82803; 83605; 83690; 85025; 85027; 86140; 87086; 87426; 99284; 99285; A9270; J1335; J1650; J1885; J2270; J2405; J3010; J7030; J7120; Q9967

== ENCOUNTER 2021-08-28 10:00 | Outpatient (RCR) | payer BC, SELFPAY ==
[2021-08-22 10:30] VITALS: BP 108/76; PULSE 86; RESP 18; TEMP 37.2; O2SAT 98
[2021-08-22] MEDS: ERTAPENEM 1 GM in 0.9 % SODIUM CHLORIDE Mini-bag 100 ML IVPB (10:53)
[2021-08-23] MEDS: ERTAPENEM 1 GM in 0.9 % SODIUM CHLORIDE Mini-bag 100 ML IVPB (10:20)
[2021-08-23 11:00] VITALS: BP 118/66; PULSE 85; RESP 18; TEMP 36.8; O2SAT 100
[2021-08-24] MEDS: ERTAPENEM 1 GM in 0.9 % SODIUM CHLORIDE Mini-bag 100 ML IVPB (09:56)
[2021-08-24 09:59] VITALS: BP 105/68; PULSE 78; RESP 18; TEMP 36.6; O2SAT 95
--- NOTE | 2021-08-24 10:39 | PC.NURSE ---
out patient infusion. Pt has been pleasant. abd 1-04/02. SL was in the right a/c, it flushed with no problems. IV infused with no problems. Pt wanted the SL out. it was d/c intact. pt walked out with and will be back to [facility] tomorrow for IV antibiotic.
[2021-08-25 10:00] VITALS: BP 104/71; PULSE 76; RESP 16; TEMP 36.9; O2SAT 100
[2021-08-25] MEDS: ERTAPENEM 1 GM in 0.9 % SODIUM CHLORIDE Mini-bag 100 ML IVPB (10:02)
[2021-08-26 09:37] VITALS: BP 94/69; PULSE 98; RESP 18; TEMP 36.8; O2SAT 98
[2021-08-26] MEDS: ERTAPENEM 1 GM in 0.9 % SODIUM CHLORIDE Mini-bag 100 ML IVPB (09:46)
[2021-08-27 09:30] VITALS: BP 104/73; PULSE 69; RESP 16; TEMP 36.1; O2SAT 99
[2021-08-27 09:44] VITALS: BP 104/73; PULSE 69; RESP 16; TEMP 36.1
[2021-08-27] MEDS: ERTAPENEM 1 GM in 0.9 % SODIUM CHLORIDE Mini-bag 100 ML IVPB (10:04)
[2021-08-27] MEDS: SODIUM CHLORIDE 0.9 % (FLUSH) 10 ML SYRINGE IVF (12:57)
[2021-08-27] MEDS: 0.9 % SODIUM CHLORIDE 250 ml IV (12:57)
[2021-08-28 10:06] VITALS: BP 116/80; PULSE 86; RESP 16; TEMP 36.9; O2SAT 99
[2021-08-28] MEDS: ERTAPENEM 1 GM in 0.9 % SODIUM CHLORIDE Mini-bag 100 ML IVPB (10:07)
[2021-08-28] MEDS: SODIUM CHLORIDE 0.9 % (FLUSH) 10 ML SYRINGE IVF (10:07)
[2021-08-28] MEDS: 0.9 % SODIUM CHLORIDE 250 ml IV (10:07)
== END 2021-09-20 23:59 | disposition home or self-care (01) ==
LOC: CCIC 10:00
PROVIDERS: PCP Physician Assistant Medical; Referring Provider Family Medicine; Visit Provider Family Medicine
DX: K57.92 Diverticulitis of intestine, part unspecified, without perforation or abscess without bleeding (principal)
CPT/HCPCS: 96365; 99211; J1335; J7050

== ENCOUNTER 2021-09-10 07:15 | Outpatient (CLI) | payer BC, SELFPAY ==
--- NOTE | 2021-09-10 08:00 | CRLHL7_ITS ---
For Patients: As a result of the Century Cures Act, medical imaging exams and procedure reports are released immediately into your electronic medical record. You may view this report before your referring provider. If you have questions, please contact your health care provider. Indication: diverticulitis, abd pain worsening Technique: Postcontrast CT abdomen and pelvis. Oral water. 69 cc Isovue 370 intravenous contrast. Please note that all CT scans at this facility use dose modulation, iterative reconstruction, and/or weight-based dosing when appropriate to reduce radiation dose to as low as reasonably achievable. Comparison: 08/31/2021, 08/19/2021, 04/13/2021 Findings: Lung bases are clear. Mild dependent atelectasis. No pleural effusion. Mild hepatic steatosis. Focal fat deposition within the liver adjacent to the falciform ligament. Gallbladder normal. Normal spleen. Normal pancreas and adrenal glands. Kidneys and ureters normal. Trace residual inflammatory change noted adjacent to the proximal sigmoid colon without abscess or recurrent perforation. The adjacent appendix is normal. No bowel obstruction. Collapsing cysts within both ovaries. Uterus normal. Normal bladder. No evidence of enteritis or abdominal wall hernia. Osseous structures normal. Impression: Trace residual inflammatory change about the proximal sigmoid colon representing residua of prior inflammation. The normal adjacent appendix. Retroflexed uterus with small collapsing bilateral ovarian cysts. Mild hepatic steatosis. Please note that all CT scans at this facility use dose modulation, iterative reconstruction, and/or weight-based dosing when appropriate to reduce radiation dose to as low as reasonably achievable. Dictated by Lj Pastrana MD @ 09/10/2021 12:45:58 PM (Electronically Signed)
--- OUTSIDE RECORDS SUMMARY | 2021-09-29 19:33 | XMS_ITS | Continuity of Care Document ---
:1965 Author Organization [facility] Address [address] [address] [place] [address] Phone Care Team Providers Name Role Phone Lalo Peña MD Unavailable Unavailable Allergies, Adverse Reactions, Alerts Substance Reaction Status Criticality Penicillins Swelling Active No Information TAZOBACTAM SODIUM Swelling Active No Information PIPERACILLIN SODIUM Swelling Active No Informati on Medications Medication Instructions Dosage Effective Dates Status Comment s (start - stop) Divigel 0.5 mg/0.5 apply 1 patch to - Active gram (0.1 %) skin topically once transdermal gel weekly packet PROBIOTIC (unknown Take 1 by oral Not Available - Active strength) route once daily Herbal Regular Girl. Fiber - Active Medications/Suppleme + Probiotic + nts unknown Prebiotic.. Take 1 scoop mixed with water every morning multivitamin tablet Take 2 tablet by - Active oral route once daily Herbal Regular Girl - - Active Medications/Suppleme Restore. Take 1 nts unknown capsule by oral route once daily Procedures Procedure Date Routine Serum Collection Office Cons New/estab Mod Advance Directives Directive Yes / No Effective Date File Name No Information Encounters Encounter Practice Location Reason(s) Diagnoses Date Provider Provide rs Description For Visit Copied on Encounter ALEAH Golden No Information [facility] Jorge BACA [facility], [address] [address], [facility] [place], [place], [place], [address] [id number], [address], [place] [facility] tel:+[phone] [place], [place], [phone] , [place]. tel: [phone] Office Cons ALEAH Lerma GI RLQ abdominal Erik Referr ing [facility] Symptoms painChronic PAC Provide r: Mark RUELAS, or constipationHistory 2 Lyndsay Sharma [address] Concerns of colonic . [address] [place], [address], (chief diverticulitis [place] [id number] [facility] complaint) [facility] [place], [place], [place], [address], [id number], [address], [facility] , [place], tel: [place], [phone] tel: , . [phone] tel: [phone] ALEAH [place] No Information [facility] MD Jeanine RUELAS, [address] [address], [facility] [place], [place], [place], [place] [id number], [address], [place] tel: [place], [place], [phone] , [place]. tel: [phone] Family History Family Member Type Diagnosis Age At Onset No Information Immunizations Vaccine Date Status Comments SARS-COV-2 (COVID-19) vaccine, administered N ote: [facility] bi-directional mRNA, spike protein, LNP, interf bruce ; Source: Other preservative free, 100 mcg/0.5mL Registry dose or 50 mcg/0.25mL dose SARS-COV-2 (COVID-19) vaccine, administered N ote: [facility] bi-directional mRNA, spike protein, LNP, interf bruce ; Source: Other preservative free, 100 mcg/0.5mL Registry dose or 50 mcg/0.25mL dose SARS-COV-2 (COVID-19) vaccine, administered N ote: [facility] bi-directional mRNA, spike protein, LNP, interf bruce ; Source: Other preservative free, 100 mcg/0.5mL Registry dose or 50 mcg/0.25mL dose Afluria Qd administered Note: [facility] bi-directional interface ; Sour ce: Other Registry tetanus toxoid, reduced administered Note: [facility] bi-directional diphtheria toxoid, and acellular interface ; Source: Other pertussis vaccine, adsorbed Flor stry Havrix administered Note: [facility] bi-di rectional interface ; Sour ce: Other Registry yellow fever vaccine administered Note: [facility] bi-directional interface ; Sour ce: Other Registry influenza, live, intranasal, administered Not e: [facility] bi-directional quadrivalent interface ; Sour ce: Other Registry Novel [id number], all administered Not e: [facility] bi-directional formulations interface ; Sour ce: Other Registry Payers Payer name Insurance type Covered libertarian ID Authorization(s ) [employer] Of [facility] [id number] Social History Type Description Quantity Date Captured Comments Sex Female Smoking Status No Information Chief Complaint And Reason For Visit No Information Reason For Referral Reason For Referral No Information Plan Of Treatment Date Type Action Status Referral Ordered: ordered CT Abdomen And Pelvis WITH Contr ast Appointment date/timeframe: 08/31/2021 Appointment Blossom Horta BOOKED History Of Present Illness Encounter Date Complaint History Of Present I lljanelle GI Symptoms or Concerns This patient is a 55-year-old female seen today at the request of Zachary Green PA-C in consultation for chr onic constipation and history of acute div erticulitis. Past medical history is significa nt for episode of diverticulitis in [facility] 2021, irritable bowel syndrome and a thyroid nodule. Patient also has a history o f having 7 lymph nodes removed from her nec k. I received 24 pages of records from her [facility] care providers which I have reviewed. Vonda roche, the patient was hospitalized in [facility] for acute diverticulitis. She was initially started on Zosyn that experienc ed face swelling with this and was subsequently switched to ertapenem. CT scan was concerning for diverticulitis with contained perforatio n. Patient had a colonoscopy performe d in August of 2019 and with 2 small polyps remov ed at that time. She was recently seen by her PCP for concern of constipation. Per PC P's note x-ray seemed to show significant sto ol and bowel however this was not the official radiologist's read. She was recommended to c ontinue fiber supplement and MiraLax and star t ciprofloxacin and metronidazole for di verticulitis. Patient reports she has stru ggled with intermittent constipation for yea rs. In the past she has tried a low FODMAP d iet, elimination diets, gluten free diet for 2 years not know which have been helpful. S he also tries to limit dairy. In June she buck d an episode of constipation for 9 d ays that did not respond to MiraLax, fiber an d stool softeners. She notes that her PCP p rescribed her antibiotics and told her to cont inue the fiber and MiraLax. She reports she went on a trip to [place] and was hesit ant to take the antibiotics so she d id not. She notes her constipation then sp ontaneously resolved.Today patient reports she is having daily bowel movements she denies any loose stools or hard lumpy stools. Denies any melena or hematochezia. She do es endorse some nausea but denies any vomiting. Blossom reports that she continues to have ri ght lower quadrant pain however this is not as severe as when she presented to the [facility]. She notes this radiates to the back .She does report that she has a history of thy roid nodule lesions noted this was initially c ystic and has now become solid. She has had h er thyroid function checked recently. 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 Functional Status Date Functional Assessment No Information Instructions Date Instruction Additional Informati on No Information Assessments Type Assessment Date No Information Patient Care Teams Name Effective Dates (start - stop) Status M embers No Information
== END 2021-09-10 07:16 | disposition home or self-care (01) ==
PROVIDERS: PCP Physician Assistant Medical; Visit Provider Surgery
DX: K57.92 Diverticulitis of intestine, part unspecified, without perforation or abscess without bleeding (principal); K76.0 Fatty (change of) liver, not elsewhere classified; N83.201 Unspecified ovarian cyst, right side; N83.202 Unspecified ovarian cyst, left side; R10.9 Unspecified abdominal pain
CPT/HCPCS: 74177; Q9967

== ENCOUNTER 2021-09-30 09:28 | Outpatient (CLI) | payer BC, SELFPAY ==
--- OUTSIDE RECORDS SUMMARY | 2021-09-30 09:31 | XMS_ITS | Continuity of Care Document ---
:1965 Author Organization [facility] Address [address] [address] [place] [address] Phone Care Team Providers Name Role Phone Lyndsay Boothe Unavailable Unavailable Allergies, Adverse Reactions, Alerts Substance [...] Description For Visit Copied on Encounter [facility] No Information [facility] Health JESSENIA, [address] [address], [facility] [place], [place], [place], [place] [id number], [address], [place] [facility] tel:+[phone] [place], [place], [id number] , [place]. tel:[phone] Office Cons [facility] GI RLQ abdominal Erik [facility] Symptoms painChronic PAC Provide r: Mark RUELAS, or constipationHistory 2 Lyndsay Sharma [address] Concerns of colonic . [address] [place], [address], (chief diverticulitis [place] [address] [facility] complaint) [facility] s, [place], [place], [address], [id number], [address], [facility] , [place], tel: [place], [phone]. [phone] tel: , . [phone] tel: [phone] [facility] Matheny No Information [facility] MD Jeanine RUELAS, [address] [address], [facility], [place], [place], [place] [id number], [address], [place] tel: [place], [place], [phone] , [place]. tel: [phone] Family History Family Member Type Diagnosis Age [...] Other Registry tetanus toxoid, reduced administered Note: [facility] bi-directional diphtheria toxoid, and acellular interface ; Source: Other pertussis vaccine, adsorbed Flor stry Havrix administered Note: [facility] bi-di rectional interface ; Sour ce: Other Registry yellow fever vaccine administered Note: [facility] bi-directional interface ; Sour ce: Other Registry influenza, live, intranasal, administered Not e: [facility] bi-directional quadrivalent interface ; Sour ce: Other Registry Novel [id number], all administered Not e: [facility] bi-directional formulations interface ; Sour ce: Other Registry Payers Payer name Insurance type Covered republican ID Authorization(s ) [facility] [id number] Social History Type Description Quantity Date Captured Comments Alcohol Use Details Unknown Caffeine Use Details Unknown Tobacco Use Status No Information Smoking Status No Information Sex Female Chief Complaint And Reason For Visit No Information Reason For Referral Reason For Referral No Information Plan Of Treatment Date Type Action Status Referral Ordered: ordered CT Abdomen And Pelvis WITH Contr ast Appointment date/timeframe: 08/31/2021 Appointment Blossom Horta BOOKED History Of Present Illness Encounter Date Complaint History Of Present I llness GI Symptoms or Concerns This patient is a 55-year-old female seen today at the request of Zachary Green PA-C in consultation for chr onic constipation and history of acute div erticulitis. Past medical history is significa nt for episode of diverticulitis in [facility] 2021, irritable bowel syndrome and a thyroid nodule. Patient also has a history o f having 7 lymph nodes removed from her nec k. I received 24 pages of records from her [facility] care providers which I have reviewed. Vonda roche, the patient was hospitalized in [facility] for acute diverticulitis. She was initially started [...] reports she went on a trip to [place] and was hesit ant to take the [...] severe as when she presented to the [facility]. She notes this radiates to the back .She does report that she has a history of thy roid nodule lesions noted this was initially c ystic and has now become solid. She has had h er thyroid function checked recently. 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 Functional Status Date Functional Assessment No Information Instructions Date Instruction Additional Informati on No Information Assessments Type Assessment Date No Information Patient Care Teams Name Effective Dates (start - stop) Status M embers No Information
[2021-09-30 13:43] LABS: Chloride* 102 mmol/L (96-114); Sodium* 140 mmol/L (135-149)
[2021-09-30 13:44] LABS: Potassium* 4.3 mmol/L (3.6-5.1)
[2021-09-30 13:46] LABS: Creatinine* 0.8 mg/dL (0.5-1.5); Estimated Glomerular Filt Rate 87 ml/min
[2021-09-30 13:47] LABS: Blood Urea Nitrogen* 18 mg/dL (7-30); Carbon Dioxide* 27 mmol/L (20-32); Glucose* 95 mg/dL (60-115)
== END 2021-09-30 09:29 | disposition home or self-care (01) ==
LOC: FRMREF 09:29
PROVIDERS: PCP Physician Assistant Medical; Visit Provider Family Medicine
DX: Z01.810 Encounter for preprocedural cardiovascular examination (principal); Z01.818 Encounter for other preprocedural examination
CPT/HCPCS: 80048

== ENCOUNTER 2021-10-01 06:40 | Inpatient (IN) | payer BC, SELFPAY ==
[2021-10-01] VITALS (23 sets, daily range): BP systolic 107–130; BP diastolic 65–91; PULSE 64–97; RESP 12–20; TEMP 36.1–37.7; O2SAT 97–100; BMI 24.0
[2021-10-01 07:44] LABS: Basophils Absolute Auto 0.02 K/uL (0.00-0.30); Basophils Percent Auto 0.3 % (0.0-3.0); Eosinophils Absolute Auto 0.09 K/uL (0.00-0.50); Eosinophils Percent Auto 1.3 % (0.0-7.0); Hematocrit 38.5 % (33.0-51.0); Immature Granulocytes Abs Auto 0.01 K/uL (0.00-0.30); Lymphocytes Absolute Auto 2.12 K/uL (0.90-2.90); Lymphocytes Percent Auto 30.5 % (20-44); Mean Corpuscular HGB Conc 34 gm/dL (32-36); Mean Corpuscular Hemoglobin 30 pg (26-34); Mean Corpuscular Volume 87 fL (80-100); Neutrophils Absolute Auto 4.16 K/uL (1.7-7.0); Neutrophils Percent Auto 59.8 % (42.0-72.0); Platelet Count* 227 K/uL (140-440); RDW Coefficient of Variation % 12.5 % (11.5-15.5); Red Blood Count 4.41 m/uL (4.00-5.20); White Blood Count* 6.96 K/uL (4.50-11.00)
[2021-10-01] MEDS: LACTATED RINGERS 1000 ML 1,000 ML 100 ML IV ×3 (07:44→12:44)
[2021-10-01] MEDS: SODIUM CHLORIDE 0.9 % (FLUSH) 10 ML SYRINGE IVF (07:46)
[2021-10-01 07:54] LABS: Slide Review Reflex No
[2021-10-01] MEDS: ERTAPENEM 1 GM inj IVP (08:06)
--- NOTE | 2021-10-01 09:00 | W.PM.NB ---
Nerve Block Nerve Block Time Seen by Provider: 08:10 Date Seen: 10/01/21 Type of block requested by surgeon for post-operative analgesia: TAP Side: bilateral Time out performed: Yes Verification of patient name: Yes Verification of date of : Yes Site marking: site marked Name of person performing procedure: Bradley Continuous monitoring Was continuous monitoring of O2 sat, B/P, diagnostic medical sonographer, recorded every 15 minutes?: Yes Procedure Checklist: sterile prep, needles and gloves Ultrasound guided. Images saved: Yes Medications given in 5ml increments after negative aspiration: Marcaine %: 0.5 mL: 15 Needle gauge: 20 and Exparel mL: 10 Patient tolerated procedure well: Yes Additional comments: Needle noted adjacent to nerve Block Charges Block Charge (with Pro Fee): TAP Bilateral Use of Ultrasound Machine for Block: Yes- US Guidance/pain block
[2021-10-01] MEDS: BUPIVACAINE 0.5% 30 ML 10 ML INJECTION (09:31)
--- NOTE | 2021-10-01 10:08 | SUR.OPER ---
PATIENT QUESTIONS ANSWERED SATISFACTORILY PREOPERATIVELY. PATIENT BROUGHT TO OR #4 PER CART. Patient positioned supine on OR #4 bed for the intubation. Pt. then moved into the lithotomy position for the procedure. Perioperative team/Ilda padded and tucked the arms at pt. side w/ sleds. ?Final approval of positioning by surgeon. CONTINUOUS IRRIGATION OF THE BLADDER WITH NACL 3000cc DURING THE CYSTOSCOPY PORTION OF THE PROCEDURE. PT. FAMILY, DAUGHTER CORY, UPDATED BY PHONE CALL AT 10:06.
--- NOTE | 2021-10-01 10:53 | SUR.OPER ---
LIGHTED STENTS PLACED AT 08:40 BY Clifford STARR MD
--- NOTE | 2021-10-01 11:22 | SUR.OPER ---
PT. FAMILY, DAUGHTER CORY, UPDATED BY PHONE CALL AT 11:23.
--- NOTE | 2021-10-01 13:31 | SUR.OPER ---
PT. FAMILY, DAUGHTER CORY, UPDATED BY PHONE CALL AT 13:30.
--- NOTE | 2021-10-01 14:53 | P.GSOP_ITS ---
Operative Note Date of procedure: 10/01/21 Type of Procedure: 1. Laparoscopic assisted sigmoidectomy 2. Mobilization of the splenic flexure 3. Rigid proctoscopy Procedure Description: After discussing the risks and benefits of the procedure, the patient signed informed consent.? The operative site was marked and the patient was brought to the operating room and placed on the operating table in lithotomy position.? Care was taken to pad the patient's pressure points.?? The patient was then intubated by anesthesia.??Dr. Martin then performed bilateral ureteral stents. Please see her operative report for details. The abdomen was then prepped and draped in the usual sterile fashion.? A time- out was then performed. Entrance to the abdomen was gained via Visiport technique in the left upper quadrant. The layers of the abdominal wall were visualized as I passed through. The abdomen was then insufflated and briefly surveyed for injury. There was none. I then placed a supraumbilical port. This was a 5 mm port. I then placed a 12 mm port medial to the ASIS on the right and superior to this an additional 5 mm working port. The patient was placed in Trendelenburg position. The cecum was noted to be positioned somewhat medially. This was gently moved out of the way and it was apparent that the sigmoid colon was adherent to this. I carefully bluntly dissected this away was a small abscess cavity. The purulent material was quickly suctioned and did not spill into the abdominal cavity. Dr. Martin then retracted the sigmoid colon anteriorly towards the abdominal wall and helped identify the inferior mesenteric artery pedicle. I incised the peritoneum using LigaSure and carefully dissected out the vessels. The ureter was visualized below our plane of dissection. Once I had completely encircled the pedicle, I then used an Endo-IAN vascular load stapler to divide the pedicle. There was no bleeding. I then used LigaSure as well Dr. Martin retracted the colon toward the anterior abdominal wall to divide the mesentery of the sigmoid down towards the pelvis. Once I reached the anterior peritoneal reflection, I stopped my dissection. This was just below the inflamed colon and abscess. Once this was done, I advanced a 60 mm purple load Endo-IAN stapler into the abdomen and divided the bowel at the anterior peritoneal reflection. The staple line appeared to be intact without bleeding. This now being done, and the colon being very mobile, we turned our attention to lateral mobilization. Dr. Martin then retracted the colon medially while I took down the lateral peritoneal attachments between the descending colon and the abdominal wall. Colon was mobilized medially very easily and dissection was taken up around the splenic flexure. Once this was done the colon fell very easily into the pelvis. At this point Endo cyanide green was then administered by Anesthesia, and we were able to see that the distal colon and planned area of resection was well vascularized. The end of the colon was then grasped with a locking grasper. I then made a Pfannenstiel incision in the patient's natural skin crease on the lower abdomen. Dissection was taken down to subcutaneous tissue using cautery. Once I reached the fascia I incised it transversely. Dr. Martin then retracted the fascia while I dissected the rectus muscle fibers off of the fascia anteriorly. I did this superiorly and inferiorly. Once this was done I then incised the peritoneum and the abdomen was desufflated. An Michel wound retractor was then placed into the wound. I then was able to pull the sigmoid colon through the wound easily. I identified healthy appearing area of bowel free of diverticuli which was still attached to the mesentery to perform the anastomosis. I carefully dissected the fat away from bowel and doctor Martin divided this with cautery. Again indocyanine I green was then administered to the patient. This showed excellent perfusion of the proximal bowel to where we plan to make the anastomosis. A Fatou clamp was then placed across the distal bowel and using a knife I transected the colon. The specimen was passed off to pathology. A 28 mm EEA stapler anvil was then advanced into the open end of the colon. A 2 0 Prolene suture was then used to create a pursestring. Again I carefully dissected the fat off of end of the colon using a mosquito and Dr. Martin divided the tissue with cautery. Once this was done I created a 2nd pursestring using 2-0 Vicryl to snug the pursestring closely around the stapler. The end of the colon was then dropped back into the abdomen. The Michel wound retractor was removed and instruments and gloves were then changed to close the wound in a clean fashion. I then closed the peritoneum with a running 3-[address] Martin and I then each closed 1 side of the fascial incision using 1. PDS. The abdomen was then reinsufflated and I then went to perform proctoscopy. I had difficulty passing the smallest dilator as the rectum was somewhat redundant. Eventually I was able to pass small dilator as well as the medium dilator. I then was ready to advance the stapler. This was advanced into the rectal stump and felt to be at the end of the stump, however, when I deployed the trocar, it was clear that it was approximately 1 cm from the end of the rectal stump. I was unable to advance the stapler farther because of tortuosity of the rectum. I elected to remove the stapler and resect the rectal stump 1 cm distally. The stapler was removed and I scrubbed back in and Dr. Martin retracted the rectal stump anteriorly while I carefully dissected the mesorectum approximately 1 more cm. Once this was done, I advanced a 60 mm Endo-IAN purple load stapler into the abdomen and stapled across the rectal stump again. The staple line was inspected for bleeding and appeared hemostatic. The portion of rectal stump was then removed from the abdomen using an Endo-Catch bag and sent with the initial specimen. The I then went down to perform proctoscopy again. I was able to pass the dilators and staple without issue. I deployed the trocar just anterior to the staple line and Dr. Martin attached the anvil to the trocar. I then closed the stapler and waited 30 seconds. I then deployed the stapler. Once this was done I removed the stapler. Initially the anastomotic rings appeared intact, however as I was trying to remove them from the anvil, the proximal anastomotic ring clearly broke apart. We decided to perform a leak test. I then performed a rigid proctoscopy and inflated the rectum. Small bubbles of air were noted. It was unclear where this was coming from. We elected to redo the anastomosis as there was significant length. I again scrubbed back in to the case. Using LigaSure, I carefully divided the mesentery another cm below the old staple line and anastomosis. The bowel appeared healthy and perfused. Dr. Martin retracted the colon anteriorly at this time. I then fired a 60 mm purple load Endo-IAN stapler across the rectum, i nsuring that I had completely excised both the anastomosis and all of the prior staple line. Once this was done the staple line appeared healthy and well perfused without signs of the prior anastomosis or staple line. I then performed a rigid proctoscopy and leak test to ensure that the rectal stump was intact because of the positive leak test and the initial difficulty passing the dilators to ensure that there was no rectal injury causing the positive leak test. There was no leaking of air into the retroperitoneum or from the rectal stump. I again scrubbed back in and I then grasped the end of the and old anastomosis. We changed again to clean instruments and new gloves and opened the fascial incision in the Pfannenstiel incision. An Michel wound retractor was placed. I then passed the distal sigmoid through the incision. I examined it. I could see 1 portion anteriorly where part of the tissue from the pursestring was at the anastomosis. This was very clearly where the leak occurred. I carefully using a mosquito cleared the pericolic fat from the serosa of the colon in order to facilitate anastomosis. Dr. Martin assisted this by using cautery to divide the fatty tissue and helping provide hemostasis with small bleeding vessels. Once this was done, again I placed a clamp across the bowel just proximal to the old anastomosis and divided the bowel proximal to the clamp. It appeared well perfused. The anastomosis was sent with the original specimen. Again I put the anvil of a 28 mm EEA stapler through the open end of the distal bowel and using 2 0 Prolene placed a pursestring suture. This was snugged down and small amount of additional fat was dissected off, me using a mosquito to carefully dissect and Dr. Martin using cautery to divide the tissue. I then placed a 2nd pursestring just around the initial pursestring using 2 0 Vicryl to ensure that the pursestring was very snug. Once this was done the distal bowel was dropped back into the abdomen and again I closed the peritoneum with 3-0 Vicryl. The fascia was closed with 1. PDS by Dr. Martin and myself on each side. I again went down to perform proctoscopy. I was now able to easily passed the dilators. I placed the 28 mm EEA stapler into the rectum. Dr. Martin provided exposure and once we were pleased with the position of the stapler, I deployed the trocar through the midportion of the rectum through the staple line. Dr. Martin then connected the anvil to the stapler. I then closed the stapler and waited 30 seconds. I then fired the stapler. I removed the stapler and the anastomotic rings were both intact. I performed proctoscopy and noted and anastomosis at 10 cm. There was no significant bleeding. Leak test was now negative. At this point, Dr. Martin closed the 12 port with 0 Vicryl. She then completed the skin closure. Please see her note for details. ? Sterile dressings were then applied. ? The patient was then woken and transported to the recovery area in stable co ndition. ? The patient tolerated the procedure well. Findings: 1. Perforation of the sigmoid colon adherent to the right pelvic sidewall with small contained abscess. 2. Initial anastomosis with disrupted ring and positive leak test Second anastomosis with intact rings and negatively test. Anesthesia: GETA Surgeon: Gay Velazco MD Co-Surgeon: Sahara Martin MD Estimated blood loss (mL): 50 Condition: stable Disposition: PACU
--- NOTE | 2021-10-01 14:58 | W.ANESCHARGE ---
Anesthesia Charges Start Date/Time Anesthesia Start Date: 10/01/21 Anesthesia Start Time: 08:00 Stop Date/Time Anesthesia Stop Date: 10/01/21 Anesthesia Stop Time: 14:56 Summary Emergency: No
--- NOTE | 2021-10-01 15:00 | W.ANESCHARGE ---
Anesthesia Charges Start Date/Time Anesthesia Start Date: 10/01/21 Anesthesia Start Time: 08:00 Stop Date/Time Anesthesia Stop Date: 10/01/21 Anesthesia Stop Time: 14:56 Summary Emergency: No
--- NOTE | 2021-10-01 15:26 | SUR.PHASEI ---
PT. VSS. TRANSFER PT TO M/S VIA BED.
[2021-10-01] MEDS: HYDROmorphone 0.5 mg/0.5 ml inj IVP ×2 (15:56→21:40)
[2021-10-01] MEDS: LACTATED RINGERS 1000 ML 1,000 ML 125 ML IV ×2 (17:20→18:50)
[2021-10-01] MEDS: LORazepam 2 MG/ML inj 0.5 MG IVP (17:56)
--- NOTE | 2021-10-01 18:21 | PC.NURSE ---
Shift Summary 15-19: Patient arrived to floor 1530. Vitals stable and WNL, on room air. States her pain is 8-9/10 and feels like her bladder is full. Johns cath in place and draining bright red urine. Frequently reminding patient she is unable to void due to catheter. Dilaudid given x1 when first arrived to floor, patient took a short nap following administration but later stated it did not help the pain. Dr. Velazco updated, one time dose of ativan given. steri strips over incisions D/C/I. Lung sounds clear. Family at bedside. Tolerating clear liquid, denies nausea.
[2021-10-01] MEDS: LACTOBACILLUS ACIDOPHILUS 1 TABLET 1 TAB PO (18:50)
[2021-10-01] MEDS: ONDANSETRON 2 MG/ML inj IVP (21:47)
[2021-10-01] MEDS: ACETAMINOPHEN 325 MG TABLET 650 MG PO (21:54)
[2021-10-02] VITALS (7 sets, daily range): BP systolic 97–114; BP diastolic 65–77; PULSE 84–103; RESP 16–20; TEMP 37.1–37.7; O2SAT 96–100
[2021-10-02] MEDS: LACTATED RINGERS 1000 ML 1,000 ML 125 ML IV ×2 (02:59→12:40)
[2021-10-02] MEDS: ACETAMINOPHEN 325 MG TABLET 650 MG PO ×2 (03:03→07:42)
[2021-10-02] MEDS: HYDROmorphone 0.5 mg/0.5 ml inj IVP ×3 (03:09→13:03)
--- NOTE | 2021-10-02 06:15 | PC.NURSE ---
Shift 7p-7a: Pt. AOx4, following commands, VSS on RA except pt. had elevated temp of 100, PRN tylenol administered with temp decreasing to 99.2. Temperature again elevated at 99.8, tylenol given again. cell reliner Tori notified. Pt.'s face flushed and warm, but no c/o of headaches, N/V. Pt. c/o tenderness/pain around incision and urinary catheter sites, states she will feel much better once catheter is removed. Plan to remove urinary catheter today. Pt. received dilauded PRN x2 for pain management. UOP adequate in Johns. Lap sites x5 C/D/I, slight redness around bottom middle and bottom right sites. Pt. dangled on edge of bed and stood up and walked in place, but refused further ambulation due to pain. Pt. stated she will try to sit up to recliner today. Plan for more mobility today
[2021-10-02 06:57] LABS: Basophils Percent Auto 0.2 % (0.0-3.0); Hemoglobin* 11.6 gm/dL (12.0-16.0); Immature Granulocytes Abs Auto 0.01 K/uL (0.00-0.30); Lymphocytes Percent Auto 17.3 % (20-44); Mean Corpuscular HGB Conc 33 gm/dL (32-36); Mean Corpuscular Hemoglobin 29 pg (26-34); Mean Corpuscular Volume 88 fL (80-100); Monocytes Percent Auto 6.4 % (0.0-11.0); Platelet Count* 214 K/uL (140-440); RDW Coefficient of Variation % 12.7 % (11.5-15.5); Red Blood Count 3.96 m/uL (4.00-5.20); White Blood Count* 11.07 K/uL (4.50-11.00)
[2021-10-02 07:01] LABS: Slide Review Reflex No
[2021-10-02 07:14] LABS: Chloride* 102 mmol/L (96-114); Potassium* 4.2 mmol/L (3.6-5.1); Sodium* 132 mmol/L (135-149)
[2021-10-02 07:16] LABS: Creatinine* 0.8 mg/dL (0.5-1.5); Est. Creatinine Clearance* 65.73; Estimated Glomerular Filt Rate 87 ml/min
[2021-10-02 07:17] LABS: Blood Urea Nitrogen* 11 mg/dL (7-30); Calcium* 8.2 mg/dL (8.4-10.6); Carbon Dioxide* 27 mmol/L (20-32); Glucose* 105 mg/dL (60-115)
[2021-10-02] MEDS: ERTAPENEM 1 GM in 0.9 % SODIUM CHLORIDE Mini-bag 100 ML IVPB (07:47)
[2021-10-02] MEDS: LACTOBACILLUS ACIDOPHILUS 1 TABLET 1 TAB PO ×3 (09:02→19:26)
[2021-10-02] MEDS: ONDANSETRON 2 MG/ML inj IVP (09:21)
--- NOTE | 2021-10-02 11:53 | PC.NURSE ---
Pt. up w/SBA in room to BR and chair, tolerating well, but noted feeling lightheaded the last time up in chair, so got herself to bed. Pain in abdomen rated 7/10. BP soft @ 97/74, HR 84. Updated MD on pain, mild hypotension. States she will be seeing pt. at bedside shortly. Pt. noted to be breathing shallower w/pain.
[2021-10-02] MEDS: KETOROLAC 15 MG/ML inj IVP (12:26)
[2021-10-02] MEDS: SIMETHICONE 80 MG TAB.CHEW 160 MG PO (12:28)
--- NOTE | 2021-10-02 12:36 | PC.NURSE ---
Addendum entered by Sofía Hazel RN 10/02/21 19:58: Addendum to add: Lap sites x6 on abdomen intact w/old drainage. Initial assessment should have stated as such, not 5 sites. Outlined areas of pink surrounding 4 of these site this AM; MD observed, stated they appear to be bruising, no concern for cellulitis at this time. Addendum entered by Sofía Hazel RN 10/02/21 19:55: 07-1900: Johns catheter removed this morning. Through shift, patient had clots from rectum x3, blood tinged urine that is lessening w/each void. Dr Velazco observed these as well, stated no major concern at this time. Pain better controlled this afternoon after initiating gabapentin scheduled & Oxford PRN. Required Toradol x1 earlier in shift, w/some relief. Pt. now walking in halls independently. Urine output of 1200cc on day shift, orders received to saline lock. Lung sounds clear, bowel sounds active, tolerating clear liquids w/out nausea. Passing a lot of gas, per patient. Original Note: Pt. called to have RN look at output. Large amount of melissa blood noted in toilet, stated came from rectum, as well as some blood-tinged 300cc urine. Updated MD on floor, who saw pt. at bedside.
--- NOTE | 2021-10-02 13:49 | P.GSPN_ITS ---
Subjective Subjective Date Seen: 10/02/21 Interval history: Jaquan had discomfort in spasm from her Johns catheter last night. This was significantly relieved after the Johns was removed. Urine output was appropriate overnight. Noted to have a fever to 99.8. Pulse was up to 104. However since then her pulse has been in the 80s and 90s. This morning the nurse was concerned because her blood pressure was a bit lower than it had been previously. She was mildly dizzy when she got up to go to the bathroom this morning and has pain on the right side of her abdomen. She feels as though she has lots of gas pain. She then had a bloody bowel movement. This did not relieve the pressure. She denies any calf pain. No chest pain or shortness of breath. Some concern from nursing staff about redness around her port site incisions. Exam Narrative: Exam Narrative: General appearance: Alert, cooperative, and in no distress Eyes: PERRLA, eye lids clear, and sclera white HENT Head: Normocephalic Pulmonary: Lungs clear bilaterally Cardiovascular Heart: Regular rate and rhythm Extremities: warm and well perfused Gastrointestinal Abdominal: Mildly tender on the right to palpation. Incisions are clean and dry. The redness around the port site is bruising. Does not look like erythema from infectious process. Musculoskeletal: Extremities: Upper: Both upper extremities have normal joint range of motion and intact strength. Lower: Both lower extremities have normal joint range of motion and intact strength. Specifically no calf pain or swelling. Skin: Normal skin color, texture, and turgor. No rashes or lesions. Neurologic: No focal deficits Psychiatric: Alert, oriented, cooperative, normal affect. Const: Vital Signs, click to edit/add: Vital Signs - 24 hr 10/01/21 15:03 10/01/21 14:52 10/01/21 14:59 Temperature 97.0 F L 97.0 F L Pulse Rate 78 74 89 Pulse Rate [Right Pulse Oximeter] Respiratory Rate 14 16 16 Blood Pressure 108/72 109/66 116/79 Blood Pressure [Le ft Arm] Pulse Oximetry 99 99 99 Oxygen Delivery Me thod Room Air Room Air Room Air 10/01/21 15:10 10/01/21 15:15 10/01/21 15:20 Temperature 97.2 F L Pulse Rate 88 90 87 Pulse Rate [Right Pulse Oximeter] Respiratory Rate 14 12 14 Blood Pressure 109/71 108/73 110/74 Blood Pressure [Le ft Arm] Pulse Oximetry 99 100 Oxygen Delivery Me thod Room Air Room Air Room Air 10/01/21 15:25 10/01/21 15:36 10/01/21 15:36 Temperature 97.3 F L 98.2 F 98.2 F Pulse Rate 82 72 Pulse Rate [Right Pulse Oximeter] Respiratory Rate 12 20 20 Blood Pressure 111/70 Blood Pressure [Le ft Arm] 114/82 114/82 Pulse Oximetry 99 98 Oxygen Delivery Me thod Room Air Room Air Room Air 10/01/21 15:45 10/01/21 16:00 10/01/21 16:15 Temperature 97.8 F 97.2 F L 97.5 F L Pulse Rate Pulse Rate [Right Pulse Oximeter] 82 75 72 Respiratory Rate 20 20 18 Blood Pressure Blood Pressure [Le ft Arm] 117/91 H 124/78 120/73 Pulse Oximetry 98 100 100 Oxygen Delivery Me thod Room Air Room Air Room Air 10/01/21 16:30 10/01/21 17:00 10/01/21 17:30 Temperature 97.8 F 97.8 F Pulse Rate Pulse Rate [Right Pulse Oximeter] 65 75 64 Respiratory Rate 16 16 16 Blood Pressure Blood Pressure [Le ft Arm] 114/70 127/81 123/75 Pulse Oximetry 100 99 98 Oxygen Delivery Me thod Room Air Room Air Room Air 10/01/21 18:30 10/01/21 19:30 10/01/21 19:00 Temperature 98.5 F 98.5 F Pulse Rate Pulse Rate [Right Pulse Oximeter] 74 75 75 Respiratory Rate 16 16 16 Blood Pressure Blood Pressure [Le ft Arm] 120/74 118/75 118/75 Pulse Oximetry 100 100 100 Oxygen Delivery Me thod Room Air Room Air Room Air 10/01/21 20:30 10/01/21 21:54 10/01/21 21:30 Temperature 98.6 F 100 F H 100 F H Pulse Rate Pulse Rate [Right Pulse Oximeter] 88 94 Respiratory Rate 16 16 Blood Pressure Blood Pressure [Le ft Arm] 130/87 122/71 Pulse Oximetry 100 97 Oxygen Delivery Me thod Room Air Room Air 10/01/21 23:00 10/01/21 23:00 10/01/21 22:54 Temperature 99.2 F 99.2 F Pulse Rate Pulse Rate [Right Pulse Oximeter] 97 97 Respiratory Rate 16 16 Blood Pressure Blood Pressure [Le ft Arm] 107/65 Pulse Oximetry 99 Oxygen Delivery Me thod Room Air 10/02/21 03:03 10/02/21 03:00 10/02/21 07:00 Temperature 99.8 F H 99.8 F H Pulse Rate Pulse Rate [Right Pulse Oximeter] 103 H 96 Respiratory Rate 16 16 Blood Pressure Blood Pressure [Le ft Arm] 112/77 Pulse Oximetry 100 Oxygen Delivery Me thod Room Air 10/02/21 07:00 10/02/21 11:41 Temperature 99.6 F 99 F Pulse Rate Pulse Rate [Right Pulse Oximeter] 96 84 Respiratory Rate 20 20 Blood Pressure Blood Pressure [Le ft Arm] 106/68 97/74 Pulse Oximetry 96 99 Oxygen Delivery Me thod Room Air Room Air Labs/Imaging Labs Labs: Hemoglobin down slightly to 11.6 from 13 preop White blood cell count is 11 from 6.9 Mildly hyponatremic at 1:32 a.m.. Progress Note: A&P Assessment and plan (1) S/P laparoscopic-assisted sigmoidectomy: Status: Acute (2) Colonic diverticular abscess: Status: Acute Plan Jaquan is a 56-year-old female who is postop day 1 after laparoscopic assisted sigmoidectomy for perforated diverticulitis. She did have a small abscess intraoperatively. This morning she is having some gas pain and had a very low- grade fever overnight. Also had a small bloody bowel movement this morning. Differential for fever includes atelectasis, DVT PE (patient has been on hormonal replacement therapy and underwent a major abdominal surgery yesterday -clear liquid diet until return of bowel function -start Lovenox for DVT prophylaxis -add Toradol and gabapentin for pain control -recheck labs in a.m. -encourage IS and ambulation. -added simethicone for pain. -intra-abdominal abscess though patient is on IV ertapenem until white blood cell count normalizes, however I am concerned about risk of C diff. Discussed with patient her Flagyl allergy and she states that she developed a rash with Cipro and Flagyl. She has since taken moxifloxacin without difficulty and for this reason I will hold off on switching her to Flagyl. Instead I have started a probiotic and we will stop ertapenem as soon as white blood cell count improves. If patient develops a fever of 101.4 or worsening tachycardia, will repeat hemoglobin, obtain ultrasound looking for DVT, chest x-ray and or possibly PE study.
[2021-10-02] MEDS: GABAPENTIN 100 MG CAPSULE PO ×2 (15:41→20:57)
[2021-10-02] MEDS: HYDROCODONE-ACETAMIN 5-325 MG 1 TAB PO ×3 (15:49→23:26)
--- NOTE | 2021-10-02 17:01 | PM.EN ---
Chart Event Note Chart Event Note: Patient is seen on afternoon rounds because of her pain this morning. She is feeling significantly better. She passed a large amount of gas. With this she had a small amount of clot on 2 different instances. These were both 2 relatively small clots overall. The simethicone helped significantly with her pain. Because of the clots in the fact that she is no longer febrile or tachycardic, I am going to hold her Lovenox tonight. I did encourage her to wear the SCDs and Stanley hose.
[2021-10-03 03:00] VITALS: BP 109/66; PULSE 86; RESP 18; TEMP 36.9; O2SAT 100
[2021-10-03] MEDS: HYDROCODONE-ACETAMIN 5-325 MG 1 TAB PO ×4 (03:37→20:04)
--- NOTE | 2021-10-03 05:58 | PC.NURSE ---
[id number]. Pt. ambulated in hallway a few times and up to chair at beginning of shift. tolerated activity well. Pt. indep. to BR still voiding blood tinged urine. Pt. passing gas and states there are no more clots passing, pt. still has not had a BM. Pt. rated pain 5-6/10 when ambulating or sitting in chair too long, and 3-4 when resting. PRN [place] given see EMar. Pt. rested comfortable during the night. 6 lap sites to abd, c/d/I.
[2021-10-03 08:00] VITALS: BP 111/73; PULSE 67; RESP 16; TEMP 36.9; O2SAT 97
[2021-10-03] MEDS: ERTAPENEM 1 GM in 0.9 % SODIUM CHLORIDE Mini-bag 100 ML IVPB (08:02)
[2021-10-03] MEDS: GABAPENTIN 100 MG CAPSULE PO ×3 (09:10→21:28)
[2021-10-03] MEDS: ONDANSETRON 2 MG/ML inj IVP (09:10)
[2021-10-03 09:18] LABS: Basophils Absolute Auto 0.01 K/uL (0.00-0.30); Basophils Percent Auto 0.1 % (0.0-3.0); Eosinophils Percent Auto 1.4 % (0.0-7.0); Hematocrit 32.2 % (33.0-51.0); Hemoglobin* 10.7 gm/dL (12.0-16.0); Immature Granulocytes Abs Auto 0.01 K/uL (0.00-0.30); Lymphocytes Absolute Auto 2.09 K/uL (0.90-2.90); Lymphocytes Percent Auto 28.9 % (20-44); Mean Corpuscular HGB Conc 33 gm/dL (32-36); Mean Corpuscular Hemoglobin 30 pg (26-34); Mean Corpuscular Volume 90 fL (80-100); Monocytes Percent Auto 6.5 % (0.0-11.0); Neutrophils Absolute Auto 4.54 K/uL (1.7-7.0); Platelet Count* 193 K/uL (140-440); RDW Coefficient of Variation % 12.8 % (11.5-15.5); Red Blood Count 3.58 m/uL (4.00-5.20); Slide Review Reflex No; White Blood Count* 7.22 K/uL (4.50-11.00)
[2021-10-03] MEDS: SIMETHICONE 80 MG TAB.CHEW 160 MG PO (09:21)
[2021-10-03] MEDS: LACTOBACILLUS ACIDOPHILUS 1 TABLET 1 TAB PO ×3 (09:21→17:35)
[2021-10-03 09:37] LABS: Chloride* 104 mmol/L (96-114)
[2021-10-03 09:38] LABS: Potassium* 3.9 mmol/L (3.6-5.1); Sodium* 135 mmol/L (135-149)
[2021-10-03 09:40] LABS: Creatinine* 0.7 mg/dL (0.5-1.5); Est. Creatinine Clearance* 75.12; Estimated Glomerular Filt Rate 102 ml/min
[2021-10-03 09:41] LABS: Blood Urea Nitrogen* 8 mg/dL (7-30); Calcium* 8.5 mg/dL (8.4-10.6); Carbon Dioxide* 28 mmol/L (20-32); Glucose* 110 mg/dL (60-115)
[2021-10-03] MEDS: LACTATED RINGERS 1000 ML 1,000 ML 75 ML IV (10:02)
--- NOTE | 2021-10-03 10:18 | P.GSPN_ITS ---
Subjective Subjective Date Seen: 10/03/21 Interval history: Blossom had a good night last night and also felt good this morning however she started to have significant crampy pain and had a large green bowel movement. She then had another bowel movement with a small clot. No other significant bleeding overnight. She has been making copious urine and so she was saline locked overnight. She states that she does have some nausea and hiccups this morning. The pain is crampy in nature. It is more on the right than the left. No chest pain or shortness of breath. No leg pain or swelling Exam Narrative: Exam Narrative: General: No acute distress CV: Regular rate and rhythm Respiratory: Clear bilaterally Abdomen: Somewhat distended. Appropriately tender for the postop state though more so on the right. Incisions without erythema. Bowel sounds are hyperactive Extremities: Bilateral lower extremities without tenderness or swelling. Const: Vital Signs, click to edit/add: Vital Signs - 24 hr 10/02/21 11:41 10/02/21 15:40 10/02/21 15:40 Temperature 99 F 98.8 F Pulse Rate [Right Pulse Oximeter] 84 84 84 Respiratory Rate 20 18 18 Blood Pressure [Le ft Arm] 97/74 102/65 Pulse Oximetry 99 100 Oxygen Delivery Me thod Room Air Room Air 10/02/21 19:00 10/02/21 23:00 10/02/21 23:00 Temperature 99.2 F 99.0 F Pulse Rate [Right Pulse Oximeter] 85 96 96 Respiratory Rate 18 18 18 Blood Pressure [Le ft Arm] 114/77 103/67 Pulse Oximetry 100 100 Oxygen Delivery Me thod Room Air Room Air 10/03/21 03:00 Temperature 98.4 F Pulse Rate [Right Pulse Oximeter] 86 Respiratory Rate 18 Blood Pressure [Le ft Arm] 109/66 Pulse Oximetry 100 Oxygen Delivery Me thod Room Air Labs/Imaging Labs Labs: Hemoglobin slightly down again this morning at 10.7 from 11.6. White blood cell count within normal limits. Electrolytes within normal limits Progress Note: A&P Assessment and plan (1) Colonic diverticular abscess: Status: Acute (2) S/P laparoscopic-assisted sigmoidectomy: Status: Acute Plan Jaquan is a 56-year-old female postop day 2 status post laparoscopic assisted sigmoidectomy for diverticulitis with abscess. White count has normalized and so I am discontinuing her IV antibiotics for the small contained abscess that was found at the time of surgery. Because she has been on antibiotics for so lo ng, I am checking C diff today. Would like to start Lovenox, however she has had 3 episodes of small clots from the rectum and therefore I do not want to cause further bleeding. We will recheck a hemoglobin at 6:00 p.m. and if stable then could consider starting Lovenox this evening. I have encouraged her to continue walking and using SCDs. Will restart maintenance IV fluid at a low rate since she is nauseated this morning and also is having losses with diarrhea. Urine output remains very high, however so if she continues diuresing then we can potentially discontinue Fluids again.
--- NOTE | 2021-10-03 11:05 | CRLHL7_ITS ---
For Patients: As a result of the Century Cures Act, medical imaging exams and procedure reports are released immediately into your electronic medical record. You may view this report before your referring provider. If you have questions, please contact your health care provider. INDICATION: Thigh pain TECHNIQUE: A compression venous ultrasound exam was performed of both lower extremities using angulo scale imaging, color Doppler and spectral Doppler analysis. FINDINGS: Sonographic imaging of the lower extremities demonstrates normal compressibility and color Doppler venous blood flow within the common femoral, deep femoral, and proximal greater saphenous veins. Within the thighs the femoral veins are patent and compressible. At a lower level the popliteal and posterior tibial veins also show normal compressibility and color Doppler venous blood flow. IMPRESSION: No evidence of deep vein thrombosis within either the left or right lower extremity. Dictated by Bharti Chinchilla MD @ 10/03/2021 1:06:42 PM (Electronically Signed)
--- NOTE | 2021-10-03 11:10 | PC.NURSE ---
Addendum entered by Sofía Hazel RN 10/03/21 20:58: Oral vancomycin started this evening. IVF order stopped by Dr. Raya, order entered. Pt. voiding large amounts pink-tinged urine. Notes nausea has mostly resolved, now very low. Tolerating broth and jello this evening. Per Dr. Velazco via phone update, initiating scheduled lovenox this evening. Pt. has remained vitally stable. Addendum entered by Sofía Hazel RN 10/03/21 13:47: C-diff sample came back positive. Updated charge nurse and Dr. Velazco. States she will consult w/Dr. Raya. Px has been rated 3-5/10. Alleviated w/[place]. Ultrasound completed. Original Note: 0700 shift: Pt. up independently in halls this morning. Tolerating well. Denied need for pain meds beginning of shift. IV antibiotic administered. After clear liquid breakfast, pt. c/o diarrhea x3, and the last was with a clot. Updated Dr. Velazco on the floor- C-diff sample order placed. Currently awaiting sample. IVF also initiated d/t recent onset of nausea and stooling. LR started @ 75/hr. At this time, pt. noted left inner thigh pain, achiness. Area does not appear red, hot or swollen compared to right. Updated ; venous ultrasound order placed. RN called to updated radiology. Awaiting arrival for scheuled test.
[2021-10-03 11:54] VITALS: BP 130/72; PULSE 72; RESP 18; TEMP 36.7; O2SAT 100
[2021-10-03 13:02] LABS: CDIFFEPI 027 PRESUMPTIVE NEGATIVE (Negative)
[2021-10-03 13:06] LABS: C.Difficile POSITIVE (Negative)
--- NOTE | 2021-10-03 13:56 | P.EN_ITS ---
Chart Event Note Chart Event Note: Patient having liquidy stools - c diff returned positive. Started PO vanco. Concern for ileus; however, and so have asked hospitalist to consult with assistance in management - pt with possibly flagyl allergy- though it is unclear as she developed a rash when she was being treated with two separate ant ibiotics. I believe double coverage to be warranted if we are able to give. DVT u/s normal.
[2021-10-03 15:45] VITALS: BP 130/72; PULSE 72; RESP 18; TEMP 36.7; O2SAT 100
--- NOTE | 2021-10-03 16:03 | P.IMCN_ITS ---
Date of Consult Patient: Other Consult date: 10/03/21 Primary Care Provider: Zachary Green PA-C Consult Narrative Reason for consult: C difficile colitis Narrative: HOSPITALIST CONSULT Procedure: POD# 2 Date of procedure: 10/01/21 Type of Procedure: 1. Laparoscopic assisted sigmoidectomy 2. Mobilization of the splenic flexure 3. Rigid proctoscopy The hospital medicine team was asked by the general surgery team, Dr. Frias, to manage the patient's C difficile colitis. Patient was admitted for a scheduled sigmoidectomy for recurrent diverticulitis. I met her in July when admitted to our service for acute diverticulitis. Her pre-op was reviewed Her op note was reviewed Her surgery was uncomplicated. Today is Post-op Day 2. She had, unexpectedly, stools and flatus within 24 hours of surgery. Day, postop day 2, more urgent loose stools that were notable for color change. C diff PCR was obtained and positive. Patient denies any vomiting, nausea. Postop pain is well managed. No fevers. PAST MEDICAL HISTORY: Recurrent Diverticulitis with micro perforation in March 2021 and July 2021. 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 Highest level of school completed/degree received: high school graduate Smoking Status: Current some day smoker Do you use any of these nicotine containing products: None Second hand tobacco smoke exposure: No How often do you have a drink containing alcohol: monthly or less How many standard drinks containing alcohol do you have on a typical day: 1 or 2 How often do you have six or more drinks on one occasion: Never AUDIT-C Alcohol total score: 1 Non-prescribed substance use: denies use Caffeine: Yes service: No REVIEW OF SYSTEMS: 12-point ROS completed with patient and negative unless otherwise stated in HPI or below. PHYSICAL EXAM: CODE STATUS: FULL CONSTITUTIONAL: Conversive, good historian. A/O. Knows setting and context. VITAL SIGNS: see record. HEENT: Normocephalic, atraumatic. PERRL, EOMI, conjunctivae pink, no scleral icterus. Ears and nose externally normal. Pharynx normal. NECK: No JVD. No carotid bruit, no thyromegaly, no adenopathy. CHEST: Clear to auscultation bilaterally HEART: S1 and S2 normal. ABDOMEN: surgical site, examined. without weeping or erythema. EXTREMITIES: No edema. NEURO: Cranial nerves intact. Mentation normal. Normal affect. SKIN: No rashes, petechiae, concerning changes PSYCHIATRIC: Mentation normal. INVESTIGATIONS: EMR Reviewed; Pre-OP Reviewed DISPOSITION: DVT:Lovenox GI: Clear liquid diet PFSH [facility] Medical History (Updated 10/03/21 @ 16:19 by Lyndsay Raya MD) Chronic neck pain Colonic diverticular abscess Diverticulitis Gastroesophageal reflux disease Irritable bowel syndrome Thyroid nodule Surgical History (Updated 10/02/21 @ 13:53 by Gay Velazco MD) H/O lymph node excision History of wisdom tooth extraction S/P laparoscopic-assisted sigmoidectomy Family History (Updated 09/30/21 @ 09:21 by Christina Gayle MD) Father Alcohol abuse Mother Alcohol abuse Other Alcoholism Depression Social History (Updated 08/27/21 @ 15:49 by Kamille Ontiveros) Narrative: Non-smoker Social alcohol use (2 per day) Previous occupational history: 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 Highest level of school completed/degree received: high school graduate Smoking Status: Current some day smoker Do you use any of these nicotine containing products: None Second hand tobacco smoke exposure: No How often do you have a drink containing alcohol: monthly or less How many standard drinks containing alcohol do you have on a typical day: 1 or 2 How often do you have six or more drinks on one occasion: Never AUDIT-C Alcohol total score: 1 Non-prescribed substance use: denies use Caffeine: Yes service: No Meds Home Medications and Allergies Home Medications Medication Instructions Recorded Confirmed Type Lactobacillus acidophilus 10 10 mg PO DAILY 08/19/21 10/01/21 History billion cell capsule (Probiotic) PROBIOTIC AND PREBIOTIC 1 sc PO DAILY 08/19/21 09/30/21 History estradiol 0.05 mg/24 hr weekly 1 patch topical .WEEKLY 08/19/21 10/01/21 History transdermal patch multivitamin 1 tab PO DAILY 08/19/21 09/30/21 History Allergies Allergy/AdvReac Type Severity Reaction Status Date / Time piperacillin [From Zosyn] Allergy Severe Rash Verified 10/01/21 07:01 tazobactam [From Zosyn] Allergy Severe Rash Verified 10/01/21 07:01 ciprofloxacin Allergy Intermediate Rash Verified 10/01/21 07:01 metronidazole [From Flagyl] Allergy Intermediate Rash Verified 10/01/21 07:01 Exam Const: Vital Signs, click to edit/add: Vital Signs - 24 hr 10/02/21 19:00 10/02/21 23:00 10/02/21 23:00 Temperature 99.2 F 99.0 F Pulse Rate [Right Pulse Oximeter] 85 96 96 Respiratory Rate 18 18 18 Blood Pressure [Le ft Arm] 114/77 103/67 Pulse Oximetry 100 100 Oxygen Delivery Me thod Room Air Room Air 10/03/21 03:00 10/03/21 08:00 10/03/21 08:00 Temperature 98.4 F 98.5 F Pulse Rate [Right Pulse Oximeter] 86 67 67 Respiratory Rate 18 16 16 Blood Pressure [Le ft Arm] 109/66 111/73 Pulse Oximetry 100 97 Oxygen Delivery Me thod Room Air Room Air 10/03/21 11:54 Temperature 98.1 F Pulse Rate [Right Pulse Oximeter] 72 Respiratory Rate 18 Blood Pressure [Le ft Arm] 130/72 Pulse Oximetry 100 Oxygen Delivery Hi thod Room Air Labs Labs: Short CBC 10/03/21 Range/Units 09:11 WBC 7.22 (4.50-11.00) K/uL Hgb 10.7 L (12.0-16.0) gm/dL Hct 32.2 L (33.0-51.0) % Plt Count 193 (140-440) K/uL BMP 10/03/21 09:11 Sodium 135 Potassium 3.9 Chloride 104 Carbon Dioxide 28 BUN 8 Creatinine 0.7 Glucose 110 Calcium 8.5 Assessment and Plan Assessment and plan (1) S/P laparoscopic-assisted sigmoidectomy: Status: Acute Assessment and Plan: Postop day 2. Agree with Lovenox. Agree with clear diet. No obvious perioperative complications as it relates to surgery. (2) C. difficile colitis: Status: Acute Assessment and Plan: Will start oral vanc at 125 mg q.i.d.. Will hold on Flagyl for now. I did speak with [facility] and they affirmed this decision.
[2021-10-03] MEDS: VANCOMYCIN 125 MG CAPSULE PO ×2 (17:35→21:28)
[2021-10-03 18:24] LABS: Hemoglobin* 10.7 gm/dL (12.0-16.0)
[2021-10-03 19:00] VITALS: BP 130/72; PULSE 73; RESP 18; TEMP 37.1; O2SAT 99
[2021-10-03] MEDS: ENOXAPARIN 40 MG/0.4 ML INJ SUBCUT (21:28)
[2021-10-03 23:00] VITALS: BP 134/76; PULSE 73; RESP 18; TEMP 37; O2SAT 100
[2021-10-04] VITALS (8 sets, daily range): BP systolic 120–157; BP diastolic 80–96; PULSE 63–92; RESP 16–18; TEMP 36.6–37.3; O2SAT 98–100
[2021-10-04] MEDS: HYDROCODONE-ACETAMIN 5-325 MG 1 TAB PO ×5 (00:22→20:22)
--- NOTE | 2021-10-04 04:48 | PC.NURSE ---
increased blood in urine as night progressed, urine color went from pink at beginning of shift to currently bright red, [facility] stated [facility] is not too concerned due to stent placement in urethras, ordered UA to confirm presence of blood. Pt denies urgency, burning, increased frequency or low back pain, also denies feeling lightheaded or dizzy, will continue to monitor.
--- NOTE | 2021-10-04 06:29 | PC.NURSE ---
[id number] Pt. rated pain 6-8/10 in abd around lap sites, lap sites x6 steri strips intact, bruising noted, PRN meds given Q4hrs. Pt. had one loose stool tonight. Afebrile. Pt. continues to have bright red bloody urine. UA still needs to be collected.
[2021-10-04] MEDS: LACTOBACILLUS ACIDOPHILUS 1 TABLET 1 TAB PO ×3 (08:31→17:18)
[2021-10-04] MEDS: VANCOMYCIN 125 MG CAPSULE PO ×4 (08:31→20:24)
[2021-10-04] MEDS: GABAPENTIN 100 MG CAPSULE PO ×3 (08:32→20:24)
[2021-10-04 08:54] LABS: Appearance Urine Cloudy (Clear); Bilirubin Urine Negative (Negative); Blood Urine 3+ (Negative); Color Urine Red (Yellow); Glucose Urine Negative (Negative); Ketones Urine 1+ (Negative); Leukocyte Esterase Urine Negative (Negative); Nitrite Urine Negative (Negative); Protein Urine 2+ (Negative); Urobilinogen Urine 0.2 (0.2-1.0); pH Urine 6.5 (5.0-8.5)
[2021-10-04 09:21] LABS: Basophils Absolute Auto 0.02 K/uL (0.00-0.30); Basophils Percent Auto 0.3 % (0.0-3.0); Eosinophils Percent Auto 3.1 % (0.0-7.0); Hematocrit 31.9 % (33.0-51.0); Hemoglobin* 10.6 gm/dL (12.0-16.0); Immature Granulocytes Abs Auto 0.04 K/uL (0.00-0.30); Lymphocytes Absolute Auto 2.79 K/uL (0.90-2.90); Lymphocytes Percent Auto 42.7 % (20-44); Mean Corpuscular HGB Conc 33 gm/dL (32-36); Mean Corpuscular Hemoglobin 30 pg (26-34); Mean Corpuscular Volume 89 fL (80-100); Neutrophils Absolute Auto 3.03 K/uL (1.7-7.0); Neutrophils Percent Auto 46.3 % (42.0-72.0); Platelet Count* 190 K/uL (140-440); RDW Coefficient of Variation % 12.4 % (11.5-15.5); Red Blood Count 3.59 m/uL (4.00-5.20); White Blood Count* 6.54 K/uL (4.50-11.00)
[2021-10-04 09:24] LABS: Slide Review Reflex No
[2021-10-04 09:28] LABS: Bacteria Urine Few; RBC Urine >100 (0-2); Squamous Epithelial Cell Urine Few (None-Few); WBC Urine 0-2 (0-5)
[2021-10-04 09:33] LABS: Chloride* 104 mmol/L (96-114); Potassium* 3.9 mmol/L (3.6-5.1); Sodium* 135 mmol/L (135-149)
[2021-10-04 09:36] LABS: Blood Urea Nitrogen* 5 mg/dL (7-30); Carbon Dioxide* 29 mmol/L (20-32); Creatinine* 0.6 mg/dL (0.5-1.5); Est. Creatinine Clearance* 87.64; Estimated Glomerular Filt Rate 106 ml/min
[2021-10-04 09:37] LABS: Calcium* 8.6 mg/dL (8.4-10.6); Glucose* 93 mg/dL (60-115)
--- NOTE | 2021-10-04 12:23 | P.GSPN_ITS ---
Subjective Subjective Date Seen: 10/04/21 Interval history: Blossom is stable today. Some abdominal pain which is controlled. No further blood per rectum though she did have woods red urine overnight. Prior to this her urine had been pink tinged. This has been improving this morning. No nausea. Continues to have copious flatus. Exam Narrative: Exam Narrative: General: No acute distress CV: Regular rate and rhythm Respiratory: Clear bilaterally Abdomen: Mildly distended. Incisions without erythema. Abdomen appropriately tender for the postop state. Point tenderness over the right lower quadrant port site. Const: Vital Signs, click to edit/add: Vital Signs - 24 hr 10/03/21 15:45 10/03/21 15:45 10/03/21 19:00 Temperature 98.1 F 98.8 F Pulse Rate [Right Pulse Oximeter] 72 72 73 Respiratory Rate 18 18 18 Blood Pressure [Le ft Arm] 130/72 130/72 Pulse Oximetry 100 99 Oxygen Delivery Me thod Room Air Room Air 10/03/21 23:00 10/03/21 23:00 10/04/21 03:00 Temperature 98.6 F 98.3 F Pulse Rate [Right Pulse Oximeter] 73 73 63 Respiratory Rate 18 18 18 Blood Pressure [Le ft Arm] 134/76 146/88 H Pulse Oximetry 100 100 Oxygen Delivery Me thod Room Air Room Air 10/04/21 08:38 Temperature 98.5 F Pulse Rate [Right Pulse Oximeter] 82 Respiratory Rate 16 Blood Pressure [Le ft Arm] 147/96 H Pulse Oximetry 100 Oxygen Delivery Me thod Room Air Labs/Imaging Labs Labs: Electrolytes within normal limits. Hemoglobin has been stable White blood cell count within normal limits. UA shows blood - culture pending. Imaging Imaging: Diagnostic Imaging Report Patient: Blossom Horta MR#: [id number] : 1965 Acct:[id number] Loc: [id number] Service Date: 10/03/[address]: Gay Velazco M.D. Ordering Physician: Gay Velazco M.D. Date of Service: 10/03/21 Procedure(s): US venous LE BI Accession Number(s): [id number] cc: Gay Velazco M.D.; Green,Mukti B PA-C~ For Patients:? As a result of the Century Cures Act, medical imaging exams and procedure reports are released immediately into your electronic medical record.? You may view this report before your referring provider.? If you have questions, please contact your health care provider. INDICATION: ?Thigh pain TECHNIQUE: A compression venous ultrasound exam was performed of both lower extremities using angulo scale imaging, color Doppler and spectral Doppler analysis. FINDINGS: Sonographic imaging of the lower extremities demonstrates normal compressibility and color Doppler venous blood flow within the common femoral, deep femoral, and proximal greater saphenous veins. Within the thighs the femoral veins are patent and compressible. At a lower level the popliteal and posterior tibial veins also show normal compressibility and color Doppler venous blood flow. IMPRESSION: No evidence of deep vein thrombosis within either the left or right lower extremity. Dictated by Bharti Chinchilla MD @ 10/03/2021 1:06:42 PM (Electronically Signed) Progress Note: A&P Assessment and plan (1) C. difficile colitis: Status: Acute (2) S/P laparoscopic-assisted sigmoidectomy: Status: Acute (3) Diverticulitis: Problem details: diverticulitis with micro perforation in March 2021 and July 2021. Status: Acute (4) Hematuria: Status: Acute Plan Jaquan is a 56-year-old female who is postop day 3 status post laparoscopic s igmoidectomy for perforated diverticulitis with abscess and persistent symptoms. - patient is having stools from C diff colitis and copious gas. No nausea. Will advance diet to full liquids. Encourage her to try yogurt - continue IS and ambulation - M IVF on hold because of good oral intake. If patient develops nausea or worsening ileus will add maintenance fluids back - Toradol/Dilaudid/[place] for pain - C diff colitis - likely from prolonged antibiotic use. On p.o. vanco. No further blood in stool. Still with loose bowel movements. - acute blood loss anemia, however hemoglobin now stable. Continue to monitor hemoglobin in the morning - Lovenox/SCDs for DVT prophylaxis - hematuria. Patient did have instrumentation in the bladder with her urinary stents. Kidney function is normal and urine output is copious. The redness has already improved. Will send urine for culture. Continue to monitor urine output.
[2021-10-04] MEDS: KETOROLAC 15 MG/ML inj IVP ×2 (14:08→22:00)
--- NOTE | 2021-10-04 16:37 | P.IMPN_ITS ---
Progress Note: A&P Assessment and plan (1) C. difficile colitis: Status: Acute Assessment and Plan: Day 2 oral vancomycin. Continue for 10 days. Will likely be able to discharge on oral regimen. (2) S/P laparoscopic-assisted sigmoidectomy: Status: Acute Assessment and Plan: Stable. No complication (3) Diverticulitis: Problem details: diverticulitis with micro perforation in March 2021 and July 2021. Status: Acute Assessment and Plan: Status post hemicolectomy (4) Hematuria: Status: Acute Assessment and Plan: Likely from instrumentation and irritation. Urine culture pending. Subjective Date Seen: 10/04/21 Interval history: Daily Progress Note - Hospital Medicine Day#4 Day #2 oral VANC for pos C DIFF POD# 3 Date of procedure: 10/01/21 Type of Procedure: 1. Laparoscopic assisted sigmoidectomy 2. Mobilization of the splenic flexure 3. Rigid proctoscopy OVERNIGHT UPDATES FROM STAFF & MED, LAB, IMAGING UPDATES Diarrhea has improved. Her energy is much improved. Her appetite has started to return. She has more energy. No further bloody bowel movements. Her urine is clearing. Review of Systems: See subjective Cardiac: No new chest pain/pressure/palpitations. Respiratory: no new dyspnea. GI: Mild abdominal bloating. Loose stools. No further blood clots Objective: Up in her chair, eating yogurt. Showered. Working on her laptop. Vitals: see above Lungs: Clear. Cardiac: S1S2. Disposition/Potential discharge - Likely to return to previous living situation. Total time is 35 minutes with greater than 50% spent in counseling and coordination of care. Exam Const: Vital Signs, click to edit/add: Vital Signs - 24 hr 10/03/21 19:00 10/03/21 23:00 10/03/21 23:00 Temperature 98.8 F 98.6 F Pulse Rate [Right Pulse Oximeter] 73 73 73 Respiratory Rate 18 18 18 Blood Pressure [Le ft Arm] 130/72 134/76 Pulse Oximetry 99 100 Oxygen Delivery Me thod Room Air Room Air 10/04/21 03:00 10/04/21 08:38 10/04/21 12:48 Temperature 98.3 F 98.5 F 97.9 F Pulse Rate [Right Pulse Oximeter] 63 82 68 Respiratory Rate 18 16 16 Blood Pressure [Le ft Arm] 146/88 H 147/96 H 157/94 H Pulse Oximetry 100 100 98 Oxygen Delivery Me thod Room Air Room Air Room Air 10/04/21 08:30 10/04/21 15:06 10/04/21 15:00 Temperature 98.1 F Pulse Rate [Right Pulse Oximeter] 82 75 75 Respiratory Rate 16 16 16 Blood Pressure [Le ft Arm] 120/80 Pulse Oximetry 99 Oxygen Delivery Me thod Room Air Labs Labs: Laboratory Results - last 24 hr 10/03/21 10/04/21 10/04/21 18:18 08:38 09:14 WBC 6.54 RBC 3.59 L Hgb 10.7 L 10.6 L Hct 31.9 L MCV 89 MCH 30 MCHC 33 RDW Coeff of Jason 12.4 Plt Count 190 Neut % (Auto) 46.3 Lymph % (Auto) 42.7 [place] % (Auto) 7.0 Eos % (Auto) 3.1 Baso % (Auto) 0.3 Neut # (Auto) 3.03 Lymph # (Auto) 2.79 [place] # (Auto) 0.50 Eos # (Auto) 0.20 Baso # (Auto) 0.02 Abs Immat Gran (auto) 0.04 Sodium Potassium Chloride Carbon Dioxide BUN Creatinine Estimated Creat Clear Estimated GFR Glucose Calcium Urine Color Red A Urine Appearance Cloudy A Urine pH 6.5 Ur Specific [place] 1.010 Urine Protein 2+ A Urine Glucose (UA) Negative Urine Ketones 1+ A Urine Blood 3+ A Urine Nitrite Negative Urine Bilirubin Negative Urine Urobilinogen 0.2 Ur Leukocyte Esterase Negative Urine RBC >100 A Urine WBC 0-2 Ur Squamous Epith Cells Few Urine Bacteria Few A 10/04/21 09:14 WBC RBC Hgb Hct MCV MCH MCHC RDW Coeff of Jason Plt Count Neut % (Auto) Lymph % (Auto) [place] % (Auto) Eos % (Auto) Baso % (Auto) Neut # (Auto) Lymph # (Auto) [place] # (Auto) Eos # (Auto) Baso # (Auto) Abs Immat Gran (auto) Sodium 135 Potassium 3.9 Chloride 104 Carbon Dioxide 29 BUN 5 L Creatinine 0.6 Estimated Creat Clear 87.64 Estimated GFR 106 Glucose 93 Calcium 8.6 Urine Color Urine Appearance Urine pH Ur Specific [place] Urine Protein Urine Glucose (UA) Urine Ketones Urine Blood Urine Nitrite Urine Bilirubin Urine Urobilinogen Ur Leukocyte Esterase Urine RBC Urine WBC Ur Squamous Epith Cells Urine Bacteria
--- NOTE | 2021-10-04 19:48 | PC.NURSE ---
: Pt. up independently, showered and walked in room. Pain 3-5/10, alleviated w/PRN medication. States ketorolac beneficial. Denied nausea even w/advancing diet. Currently on full liquids; per Dr. Velazco, pt. should be eating yogurt. Steri strips intact and unchanged x6 on abdomen. Afebrile. Education provided to patient and spouse re: infectious process, using bleach and handwashing, and separate restrooms upon return home. Receptive to teachings. Report given to KEMI Ford.
[2021-10-04] MEDS: ENOXAPARIN 40 MG/0.4 ML INJ SUBCUT (20:23)
[2021-10-04] MEDS: SODIUM CHLORIDE 0.9 % (FLUSH) 10 ML SYRINGE 5 ML IVF (22:01)
[2021-10-05] MEDS: HYDROCODONE-ACETAMIN 5-325 MG 1 TAB PO ×3 (02:48→12:18)
[2021-10-05 03:00] VITALS: BP 149/92; PULSE 54; RESP 16; TEMP 36.4; O2SAT 98
--- NOTE | 2021-10-05 05:34 | PC.NURSE ---
Addendum entered by Liliana Mitchell RN 10/05/21 06:43: Pt states she feels like crap, congested, headache and just feels heavy Original Note: [id number] Pt doing well this shift, pain controlled with prn norco and toradol. decreased loose stools, continues to have blood in urine, bright red. states whenever she eats it goes straight through her, denies N/V and is able to tolerate full liquid diet.
[2021-10-05 07:00] VITALS: BP 151/93; PULSE 60; RESP 14; TEMP 37.2; O2SAT 100
[2021-10-05] MEDS: VANCOMYCIN 125 MG CAPSULE PO ×2 (08:07→12:14)
[2021-10-05] MEDS: GABAPENTIN 100 MG CAPSULE PO (08:07)
[2021-10-05] MEDS: LACTOBACILLUS ACIDOPHILUS 1 TABLET 1 TAB PO (08:08)
[2021-10-05 09:02] LABS: PCR FLU A Negative PCR FLU A (Negative); PCR FLU B Negative PCR FLU B (Negative); PCR RSV Negative PCR RSV (Negative)
[2021-10-05 09:21] LABS: SARS PCR* Negative SARS-CoV-2 (Negative)
--- NOTE | 2021-10-05 10:06 | PM.DS1 ---
DS: Providers Provider Date Seen: 10/05/21 Date of admission: 10/01/21 06:40 Primary care physician: Zachary Green PA-C Admitting Clinician: Gay Velazco MD Attending Physician on discharge: Gay Velazco MD DS: Summary Hospital Course Hospital Course: Blossom is admitted after laparoscopic assisted sigmoidectomy for diverticulitis with abscess. Postoperatively she was noted to have copious stool in the early postoperative. She was checked and found to be positive for C difficile colitis. After being placed on vancomycin she did improve. White blood cell count remained normal. She did have some thigh pain and DVT ultrasound was obtained which did not show blood clot. She was placed on Lovenox appropriately postoperatively. She also had hematuria noted. Urine culture preliminarily is negative. This is likely from instrumentation during stent placement for surgery. Creatinine within normal limits and urine output has been excellent on postop day 4 she was tolerating a diet, and pain was controlled with oral pain meds and she was deemed safe for discharge home. Status at Discharge Functional status at discharge: independent ambulation Exam Narrative: Exam Narrative: General appearance: Alert, cooperative, and in no distress Eyes: PERRLA, eye lids clear, and sclera white HENT Head: Normocephalic Ears: External ears normal Pulmonary: Breathing nonlabored on room air Cardiovascular Heart: Regular rate and rhythm Extremities: warm and well perfused Gastrointestinal Abdominal: Mildly distended but soft. Appropriately tender for the postoperative state. Incisions are clean and dry without erythema. Musculoskeletal: Extremities: Upper: Both upper extremities have normal joint range of motion and intact strength. Lower: Both lower extremities have normal joint range of motion and intact strength. Skin: Normal skin color, texture, and turgor. No rashes or lesions. Neurologic: No focal deficits Psychiatric: Alert, oriented, cooperative, normal affect. Const: Vital Signs, click to edit/add: Vital Signs - 24 hr 10/04/21 12:48 10/04/21 15:06 10/04/21 15:00 Temperature 97.9 F 98.1 F Pulse Rate [Right Pulse Oximeter] 68 75 75 Respiratory Rate 16 16 16 Blood Pressure [Le ft Arm] 157/94 H 120/80 Pulse Oximetry 98 99 Oxygen Delivery Me thod Room Air Room Air 10/04/21 19:00 10/04/21 23:00 10/04/21 23:00 Temperature 99.1 F 99.0 F Pulse Rate [Right Pulse Oximeter] 92 84 84 Respiratory Rate 16 16 16 Blood Pressure [Le ft Arm] 141/80 H 149/86 H Pulse Oximetry 99 99 Oxygen Delivery Me thod Room Air Room Air 10/05/21 03:00 Temperature 97.6 F Pulse Rate [Right Pulse Oximeter] 54 L Respiratory Rate 16 Blood Pressure [Le ft Arm] 149/92 H Pulse Oximetry 98 Oxygen Delivery Me thod Room Air DS: Data Data Completed and Pending Labs on day of discharge: Labs from last 24 hours 10/05/21 10/01/21 07:53 14:43 SARS-CoV-2 (PCR) Negative SARS-CoV-2 Influenza Type A (PCR) Negative PCR FLU A Influenza Type B (PCR) Negative PCR FLU B RSV (PCR) Negative PCR RSV Surg PTH (Off-Site) See Scanned Report Preliminary micro results at discharge 10/04/21 08:38 Urine Culture - Preliminary Urine,Clean Catch Discharge Plan Discharge Disposition: Home, Self-Care Date of Admission: 10/01/21 06:40 Primary Care Provider: Zachary Green Condition: Stable Anticipated Discharge Date/Time: 10/05/21 04:00 Discharge Medications: New hydrocodone-acetaminophen 5-325 mg Tablet 1 - 2 tab PO Q6H PRN (Reason: Pain) Qty: 20 0RF vancomycin 125 mg Capsule 125 mg PO QID Qty: 40 0RF Continued multivitamin Tablet 1 tab PO DAILY Probiotic 10 billion cell capsule 10 mg PO DAILY Held estradiol 0.05 mg/24 hr patch weekly 1 patch topical .WEEKLY Hold Instructions: Resume on 10/12/21. Label Comments: APPLY ONE PATCH EXTERNALLY WEEKLY Rx Instructions: CHANGES ON TUESDAY progesterone micronized 100 mg capsule 100 mg PO DAILY Qty: 90 0RF Hold Instructions: Resume on 10/12/21. Label Comments: TAKE 1 CAPSULE BY MOUTH ONE TIME DAILY estradiol 10 mcg tablet 10 mcg VAGINAL 2XW Qty: 24 0RF Hold Instructions: Resume on 10/12/21. Label Comments: INSERT 1 TABLET VAGINALLY TWICE WEEKLY Rx Instructions: INSERTS TUE AND Discontinued polyethylene glycol 3350 [Miralax] 17 gram Powder In Packet 17 g PO BID PRN PROBIOTIC AND PREBIOTIC 1 sc PO DAILY Rx Instructions: POWDER Discharge Orders: Discharge Order (Routine); Ordered 10/05/21 Ordered By: Gay Velazco Patient Education: C. Diff (Clostridioides Difficile) Infection (GEN), Colectomy Diet (GEN), Laparoscopic Bowel Resection (GEN) Activity Restrictions/Additional Instructions: Wound care: Your sutures are under the skin and will dissolve over time. Leave steri strips (white bandages) over incisions until they fall off (or remove after 7 days). OK to shower but avoid bathing, soaking or swimming for 2 weeks. Pat the incisions dry. No need to wash or scrub the area. Apply ice to the area as needed for swelling. It is also OK to use a heating pad if this provides more comfort to you. Pain control: You were prescribed a pain medication. This medication contains acetaminophen (Tylenol). If you are taking your prescribed pain pills 4 times daily, do not take additional acetaminophen. As your pain improves, you can try taking acetaminophen instead of the prescribed pain pill. It is ok to take Ibuprofen or Naproxen (per directions on packaging). This medication helps with inflammation and swelling. Follow-up Follow up with Dr. Velazco in 2-3 weeks Please call if you are experiencing severe pain, nausea, vomiting, difficulty urinating, fever, worsening diarrhea or blood in your urine or have not had bowel movement in 4 days. Activity Level: No strenuous activity Activity Detail: No lifting more than 20 lbs for 4 weeks Discharge Diet: Regular Follow Up Appointments: Gay Velazco MD [Staff Physician] - Zachary Green PA-C [Primary Care Provider] - Forms: [employer] Info Instructions
[2021-10-05 11:00] VITALS: BP 158/90; PULSE 58; RESP 14; TEMP 37.3; O2SAT 100
--- NOTE | 2021-10-05 11:13 | P.GSOP_ITS ---
Operative Note Date of procedure: 10/01/21 Type of Procedure: 1. Placement of bilateral ureteral stents with cystoscopy 2. Laparoscopic assisted sigmoidectomy 3. Mobilization of the splenic flexure Procedure Description: After discussing the risks and benefits of the procedure, the patient signed informed consent.? The operative site was marked and the patient was brought to the operating room and placed on the operating table in supine position.? Care was taken to pad the patient's pressure points.?? The patient was then intubated by anesthesia.?? Patient was placed in a lithotomy position and the pelvis was then prepped and draped in the usual sterile fashion.? A time-out was then performed. I identified the urethra and easily used a cystoscopy camera to enter the bladder. Water was used throughout this portion of the procedure to help assist with distention of the bladder. The dome was identified and no masses seen. Attention was 1st directed to the right ureter. Utilizing a guidewire, the wire was threaded through the right ureter. The lighted stent was then placed via Seldinger technique. The stent was thread to approximately 20 cm. The left ureter was identified and again via Seldinger technique a wire used to thread through the left ureter and place the left stent at approximately 20 cm. A moderate amount of bladder irritation was noted at the completion of the procedure. No other injury or masses again identified. The cystoscopy camera was removed, taking care not to disturb lodged the stents. A Johns catheter was then placed and the stents were secured in place. The patient was then repositioned by Dr. Velazco and the abdomen was prepped and draped in the usual sterile fashion. A time-out was then performed. Dr. Velazco entered the abdomen via Visiport technique in the left upper quadrant. The abdomen was then insufflated and briefly surveyed for injury, there was none. She then placed a 5 mm supraumbilical port, as well as a 12 mm port medial to the ASIS on the right and an additional 5 mm working port inferiorly. The patient was then placed in Trendelenburg position. I managed the camera while Dr. Velazco swept the small bowel towards the patient's right upper quadrant. The cecum was noted to be adherent to the anterior abdominal wall and positioned medially. Sigmoid colon was also adherent. The sigmoid colon was bluntly dissected away, with evidence of a small abscess cavity and expulsion of purulent material that was quickly suctioned. I then assisted with retraction of the sigmoid colon anteriorly towards the abdominal wall, to help assist with identification of the inferior mesenteric ve ssel pedicle. Dr. Velazco used the LigaSure device to incise the peritoneum and carefully dissect out the vessels. During this portion of the procedure the lighted stents were easily identified and the ureter stayed out of the operative field. Dr. Velazco then used an Endo-IAN vascular staple load to dissect the vascular pedicle. Hemostasis was excellent. I continued with retraction of the colon toward the anterior abdominal wall well Dr. Velazco continued dissection of the mesentery with the LigaSure device. Once she reached the anterior peritoneal reflection she stopped her dissection just below the inflamed colon and abscess. Once the rectum was circumferentially dissected out she utilized a 60 mm purple load endovascular stapler to divide the bowel at the anterior peritoneal reflection. Again the staple line appeared intact with hemostasis excellent. We then turned our attention to lateral mobilization. I again and continued with retraction now medially well Dr. Velazco took down the lateral peritoneal attachments between the descending colon and the abdominal wall. Dissection was carried up to the splenic flexure and the splenic colic ligaments carefully taken down. Once the splenic flexure was adequately mobilized we again turned our attention to the pelvis. At this point and indocyanine green was then administered by anesthesia. We were able to easily see adequate p erfusion of the rectal stump and the proximal colon. The end of the colon was then grasped by locking grasper and we moved to the open portion of the procedure. Dr. Velazco made a lower Pfannenstiel incision. I retracted the subcutaneous fat was she incised anterior fascia. We bluntly dissected away the muscle and the peritoneum was grasped. This was entered sharply and the abdomen was desuffla shahid. The peritoneal incision was then extended superiorly and inferiorly and an Michel wound retractor placed. The proximal portion of the colon that was on the locking grasper was then easily brought through the abdominal wound. Dr. Velazco identified a healthy appearing area of bowel free of diverticuli, which demonstrated adequate perfusion on indocyanine green evaluation. She carefully dissected away any epiploic fat, while I assisted with cauterization. A Fatou clamp was placed over the point of transection and Dr. Velazco sharply transected the proximal end of the colon. The specimen was then passed off to the back table to be sent for pathology. A 28 mm EEA stapler anvil was then advanced into the open end of the colon. Dr. Velazco performed a 2 0 Prolene suture circumferentially via a pursestring mechanism. She then performed a 2nd pursestring using a 2-0 Vicryl to not do the anvil around the opening. The end of the colon was then dropped back into the abdomen. At this point we proceeded to the clean portion of the procedure. All dirty equipment was removed we changed our outer gloves. The peritoneum was brought together with running 3-0 Vicryl. The anterior fascia was closed with 1-0 PDS suture. A wet Ray-Vaughn was placed in the wound and the abdomen was then re-insufflated. At this portion of the procedure Dr. Velazco moved to the pelvic area to perform proctoscopy. Please see her procedure for description of this portion of the procedure. After the stapler was deployed it was clear that it was not at the staple line of the rectal stump, which was secondary to the redundancy of the remaining rectum. The decision was made at that time to remove an additional proximal portion of the rectal stump. Dr. Velazco scrubbed back in and I assisted with retraction while she continued dissection of the rectal stump circumferentially approximately 1 cm distal. We ensured that the new staple line was distal to the enterotomy that was made and the colon was transected with a 60 mm purple load Endo-IAN stapler. The staple line was inspected and appeared hemostatic. The portion of rectal stump was then removed from the abdomen using an Endo-Catch bag and sent with the initial specimen. Dr. Velazco then went down to perform proctoscopy again. She deployed the trocar just anterior to the staple line and I placed the anvil onto the trocar securing it in place. The anastomosis was created and she went to examine the rings on the back table. Unfortunately 1 of the rings appeared incomplete. A leak test was performed and positive. Dr. Velazco scrubbed back in and we investigated the old anastomosis. Laparoscopically we were able to identify a remnant of the Prolene suture and where the leak had occurred on the anterior aspect of the anastomosis. We continued dissection with the LigaSure device distal on the rectum and more able to circumferentially clear off a portion of the rectum just distal to the anastomosis. We transected the colon here with with a 60 mm Endo-IAN stapler. We then opened the fascial incision of the previously placed Pfannenstiel incision. An Michel wound retractor was placed. The sigmoid was delivered through the incision and again we identified on the anterior aspect of the previous anastomosis where the positive leak test had occurred and remnant of a Prolene suture. A proximal portion of the colon was identified and cleared off circumferentially. The Fatou was placed a cross the colon and transected sharply with a scalpel. We placed a new anvil of a 28 mm EEA stapler through the open end of the distal bowel and Dr. Velazco again noted the anvil in place with a 2 0 Prolene pursestring suture and a 2nd pursestring suture of 2-0 Vicryl. Once this was done the proximal colon was dropped back into the abdomen and we removed all dirty equipment and changed our outer gloves. We again closed the peritoneum with 3-0 Vicryl. The fascia was closed by two running 1-[address] Velazco again performed proctoscopy and was able to easily pass the dilators. I provided exposure within the abdomen while she deployed the trocar. The trocar deployed in the middle of the staple line. I was able to place the anvil onto the trocar and Dr. Velazco continued with creating the anastomosis. She inspected the anastomotic rings and both appeared intact. A leak test was performed and negative. Dr. Velazco scrubbed out at this portion of the procedure not continued with closure. The 12 mm port was closed with a [id number] 0 Vicryl suture, taking care not to injure any underlying bowel. The remaining ports were then removed under direct visualization. The Pfannenstiel incision was closed in layers of interrupted 3 0 Vicryl and running 4-0 Monocryl suture. The port sites were closed with 4-0 Monocryl suture. Sterile dressings of Steri-Strips were placed. ? The bilateral ureteral stents were removed at the conclusion of the procedure, a moderate amount of hematuria was noted within the Johns at this time. ? The patient was then woken and transported to the recovery area in stable condition. ? The patient tolerated the procedure well. Findings: Diverticulitis of the sigmoid colon with associated abscess. Additional anastomosis with disrupted ring and positive leak test. Second anastomosis performed with intact rings and leak test negative. Anesthesia: GETA Surgeon: Gay Velazco MD Co-Surgeon: Sahara Martin MD Estimated blood loss (mL): 50 Condition: stable Disposition: PACU
--- NOTE | 2021-10-05 12:24 | P.GSPN_ITS ---
Subjective Subjective Date Seen: 10/05/21 Interval history: I was asked to see patient for hematuria postoperatively. She states that she initially had dark red blood with passage of a few clots the 1st night. Over the last 2 nights it has started to lighten in color. She denies any further passage of clots. She says that it is mainly clear throughout the day but then will be more blood tinged at night, which he thinks may be because of her movement throughout the day. Her Johns was removed on postop day 1. She has been urinating without difficulty and denies any pain or increase in urgency. She was recently diagnosed with C diff colitis. Exam Narrative: Exam Narrative: General: Alert and oriented, no acute distress. Abdomen: Appropriately tender at incisions, no suprapubic tenderness to palpation guarding or rebound. Steri-Strips remain in place clean/dry/intact. Const: Vital Signs, click to edit/add: Vital Signs - 24 hr 10/04/21 12:48 10/04/21 15:06 10/04/21 15:00 Temperature 97.9 F 98.1 F Pulse Rate [Right Pulse Oximeter] 68 75 75 Respiratory Rate 16 16 16 Blood Pressure [Le ft Arm] 157/94 H 120/80 Pulse Oximetry 98 99 Oxygen Delivery Me thod Room Air Room Air 10/04/21 19:00 10/04/21 23:00 10/04/21 23:00 Temperature 99.1 F 99.0 F Pulse Rate [Right Pulse Oximeter] 92 84 84 Respiratory Rate 16 16 16 Blood Pressure [Le ft Arm] 141/80 H 149/86 H Pulse Oximetry 99 99 Oxygen Delivery Me thod Room Air Room Air 10/05/21 03:00 10/05/21 07:00 10/05/21 11:00 Temperature 97.6 F 98.9 F 99.1 F Pulse Rate [Right Pulse Oximeter] 54 L 60 58 L Respiratory Rate 16 14 14 Blood Pressure [Le ft Arm] 149/92 H 151/93 H 158/90 H Pulse Oximetry 98 100 100 Oxygen Delivery Me thod Room Air Room Air Room Air Labs/Imaging Labs Labs: Urine culture demonstrating no growth. Creatinine 0.6 and stable. Progress Note: A&P Assessment and plan (1) Hematuria: Status: Acute Assessment and Plan: Patient with hematuria post bilateral ureteral stent placement. Both stents were removed in the operating room. Her Johns was removed on postop day 1. It does sound like the hematuria is lightening in color with no further passage of clots. No concern for obstruction. Patient has had adequate urinary output with creatinine stable at 0.6. Hematuria is likely secondary to bladder mucosa irritation from cystoscopy and stent placement. Would expect that it would continue to improve. I did discuss with the patient that should symptoms persist greater than 2 weeks or clinically worsen would then consult Urology for repeat cystoscopy. All questions and concerns were addressed with patient agreeing to the above- stated plan.
--- NOTE | 2021-10-05 12:47 | PC.NURSE ---
shift [id number] pt this shift calm and cooperative. tolerating full liquids, having intermittent loose stools. Hematuria noted, MD aware. Sufficient u/o. Pain at 4/10, managed with medication (see eMAR). Ambulating in room and using IS independently. C/o of not feeling well this morning with a headache and some congestion. Covid/Flu swab collected and came back negative. Educated on getting up and taking deep breaths regularly. Discharged to home at 1230, wheeled out to spouses car. IV dc'd, discharge instructions given and questions answered.
== END 2021-10-05 12:30 | disposition home or self-care (01) | DRG 221 ==
PROVIDERS: Family Medicine; Admitting Provider Surgery; PCP Physician Assistant Medical; Visit Provider Surgery
PROC: 0DTN0ZZ Resection of Sigmoid Colon, Open Approach (ICD-10-PCS; CPT 44204; principal; 2021-10-01 08:00)
DX: K57.20 Diverticulitis of large intestine with perforation and abscess without bleeding (principal); A04.72 Enterocolitis due to Clostridium difficile, not specified as recurrent; N32.89 Other specified disorders of bladder; N99.89 Other postprocedural complications and disorders of genitourinary system; T36.95XA Adverse effect of unspecified systemic antibiotic, initial encounter; D62 Acute posthemorrhagic anemia; K21.9 Gastro-esophageal reflux disease without esophagitis; G89.29 Other chronic pain; M54.2 Cervicalgia; R31.9 Hematuria, unspecified; M79.659 Pain in unspecified thigh; N94.10 Unspecified dyspareunia; K58.9 Irritable bowel syndrome, unspecified; E04.1 Nontoxic single thyroid nodule
CPT/HCPCS: 00790; 00840; 36415; 64488; 76942; 80048; 81003; 81015; 85018; 85025; 86850; 86900; 86901; 87086; 87493; 87502; 87634; 87635; 88304; 88307; 93970; 94761; A9270; C1769; C9290; J0330; J1100; J1170; J1200; J1335; J1650; J1885; J2060; J2370; J2405; J2704; J3010; J3475; J3490; J7120

== ENCOUNTER 2021-11-25 10:27 | Emergency (ER) | payer BC, SELFPAY ==
[2021-11-25 10:31] VITALS: BP 131/88; PULSE 73; RESP 16; TEMP 36.9; O2SAT 100; BMI 24.0
--- OUTSIDE RECORDS SUMMARY | 2021-11-25 12:15 | XMS_ITS | Continuity of Care Document ---
:1965 Author Organization [facility] Address [address] [address] [place] [address] Phone Care Team Providers Name Role Phone [...] Copied on Encounter [facility] No Information [facility] JESSENIA, [address] [address], [facility], [place], [place], [address] [id number], [address], [place] [facility] tel:+[phone] [place], [place], [phone] , [place]. tel:[phone] Office Cons [facility] GI RLQ abdominal Erik [facility] Symptoms painChronic PAC Provide r: Mark RUELAS, or constipationHistory [address] Concerns of colonic . [address] [place], [address], (chief diverticulitis [address] [facility] complaint) [facility] s, [place], [place], [address], [id number], [address], [facility] , [place], [place]: [place], [phone]. [phone] tel: , . [phone] tel: [phone] [facility] [place] No Information [facility] MD Jeanine RUELAS, [address] [address], [facility], [place], [place], [address] [id number], [address], [place] tel: [place], [place], [phone] , [place]. tel: [phone] Family History Family Member Type Diagnosis Age [...] Other Registry tetanus toxoid, reduced administered Note: [facility] bi-directional diphtheria toxoid, and acellular interface ; Source: Other pertussis vaccine, adsorbed Flor stry Havrix administered Note: [facility] bi-di rectional interface ; Sour ce: Other Registry yellow fever vaccine administered Note: [facility] bi-directional interface ; Sour ce: Other Registry influenza, live, intranasal, administered Not e: [facility] bi-directional quadrivalent interface ; Sour ce: Other Registry Novel [id number], all administered Not e: [facility] bi-directional formulations interface ; Sour ce: Other Registry Payers Payer name Insurance type Covered green party ID Authorization(s ) [employer] [id number] Social History Type Description Quantity Date Captured Comments Alcohol Use Details Unknown Caffeine Use Details Unknown Tobacco Use Status No Information Smoking Status No Information Sex Female Chief Complaint And Reason For Visit No Information Reason For Referral Reason For Referral No Information Plan Of Treatment Date Type Action Status Referral Ordered: ordered CT Abdomen And Pelvis WITH Contr ast Appointment date/timeframe: 08/31/2021 History Of Present Illness Encounter Date Complaint History Of Present I llness GI Symptoms or Concerns This patient is a 55-year-old female seen today at the request of Zachary Green PA-C in consultation for chr onic constipation and history of acute div erticulitis. Past medical history is significa nt for episode of diverticulitis in [facility]2021, irritable bowel syndrome and a thyroid nodule. Patient also has a history o f having 7 lymph nodes removed from her nec k. I received 24 pages of records from her [facility] care providers which I have reviewed. Vonda roche, the patient was hospitalized in [facility] for acute diverticulitis. She was [...] reports she went on a trip to [place] and was hesit ant to take the [...] severe as when she presented to the [facility]. She notes this radiates to the [...]
--- NOTE | 2021-11-25 12:21 | ED_ITS ---
HPI - General Adult General Time Seen by Provider: 12:21 Date Seen: 11/25/21 Chief complaint: Back Injury/Pain Stated complaint: Sharp pain between shoulder blades Time Seen by Provider: 11/25/21 10:32 Source: patient Mode of arrival: ambulatory Limitations: no limitations History of Present Illness HPI narrative: Patient is a 56 white female who had a diverticular surgery about 2 months ago. She has had some pain in her right periscapular area a since doing some sweeping. The patient reports that she has not had any trouble with breathing issues fever chills or other problems she is recovering nicely from her abdominal surgery. Her O2 sat today is 100%. Her chiropractor was examining her back felt she might have a PE and sent her to the ER. She has had no bleeding or clotting problems no leg swelling or edema she has been active and moving. The pain is worse with movement or deep breathing or with moving her shoulder on the right Related Data Home Medications Medication Instructions Recorded Confirmed Lactobacillus acidophilus 10 10 mg PO DAILY 08/19/21 11/17/21 billion cell capsule (Probiotic) estradiol 0.05 mg/24 hr weekly 1 patch topical .WEEKLY 08/19/21 11/09/21 transdermal patch multivitamin 1 tab PO DAILY 08/19/21 11/17/21 Previous Rx's Medication Instructions Recorded estradiol 10 mcg vaginal tablet 10 mcg vaginal 2XW #24 tabs 09/21/21 progesterone micronized 100 mg 100 mg PO DAILY #90 caps 09/21/21 capsule estradiol 0.045 mg-levonorgestrel 1 patch transdermal QWEEK #4 ea 11/09/21 0.015 mg/24hr weekly transderm patch (Climara Pro) estradiol 10 mcg vaginal tablet 10 mcg vaginal 2XW #14 tabs 11/09/21 triamcinolone acetonide 0.1 % 1 applic topical BID #30 grams 11/23/21 topical ointment Allergies Allergy/AdvReac Type Severity Reaction Status Date / Time piperacillin [From Zosyn] Allergy Severe Rash Verified 11/17/21 12:50 tazobactam [From Zosyn] Allergy Severe Rash Verified 11/17/21 12:50 ciprofloxacin Allergy Intermediate Rash Verified 11/17/21 12:50 metronidazole [From Flagyl] Allergy Intermediate Rash Verified 11/17/21 12:50 Review of Systems Status of ROS: Reports: 6 or more systems reviewed and unremarkable except as noted in History and below [facility] Medical History Chronic neck pain Colonic diverticular abscess Diverticulitis Gastroesophageal reflux disease Irritable bowel syndrome Thyroid nodule Surgical History H/O lymph node excision History of wisdom tooth extraction S/P laparoscopic-assisted sigmoidectomy Family History Father Alcohol abuse Mother Alcohol abuse Other Alcoholism Depression Social History Narrative: Non-smoker Social alcohol use (2 per day) Previous occupational history: 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 Highest level of school completed/degree received: high school graduate Smoking Status: Light tobacco smoker Do you use any of these nicotine containing products: None Second hand tobacco smoke exposure: No How often do you have a drink containing alcohol: monthly or less How many standard drinks containing alcohol do you have on a typical day: 1 or 2 How often do you have six or more drinks on one occasion: Never AUDIT-C Alcohol total score: 1 Non-prescribed substance use: denies use Caffeine: Yes service: No Exam Narrative: Exam Narrative: Objective: Patient is alert or x3 Vital signs unremarkable O2 sat on% room air Chest is clear no rales or wheezing Mild rhomboid tenderness to palpation on the right periscapular area on the medial border consistent with rhomboid spasm or pain Abdomen benign Extremities are no edema neurologic nonfocal good peripheral perfusion no swelling in lower extremities Skin warm and dry Const: Vital Signs, click to edit/add: Vital Signs - 24 hr 11/25/21 10:31 Temperature 98.4 F Pulse Rate [Left P ulse Oximeter] 73 Respiratory Rate 16 Blood Pressure [Ri ght Upper Arm] 131/88 Pulse Oximetry 100 Oxygen Delivery Me thod Room Air Course Vital Signs Vital signs: Initial Vital Signs Temperature 98.4 F 11/25/21 10:31 Temperature Source Temporal Artery Scan 11/25/21 10:31 Pulse Rate 73 11/25/21 10:31 Pulse Rhythm 11/25/21 10:31 Pulse Strength 3+ Normal 11/25/21 10:31 Respiratory Rate 16 11/25/21 10:31 Blood Pressure 131/88 11/25/21 10:31 Blood Pressure Mean 102 11/25/21 10:31 Pulse Oximetry 100 11/25/21 10:31 Oxygen Delivery Method 11/25/21 10:31 Vital Signs Temperature 98.4 F 11/25/21 10:31 Pulse Rate 73 11/25/21 10:31 Respiratory Rate 16 11/25/21 10:31 Blood Pressure 131/88 11/25/21 10:31 Pulse Oximetry 100 11/25/21 10:31 Oxygen Delivery Method 11/25/21 10:31 Temperature 98.4 F 11/25/21 10:31 Pulse Rate 73 11/25/21 10:31 Respiratory Rate 16 11/25/21 10:31 Blood Pressure 131/88 11/25/21 10:31 Pulse Oximetry 100 11/25/21 10:31 Oxygen Delivery Method 11/25/21 10:31 Medical Decision Making MDM Narrative Medical decision making narrative: Patient was doing some upper body work and developed some right periscapular pain that is tender to palpation worse with movement. This is a rhomboid muscle strain or spasm. At this point would recommend either a steroid which she declines or ibuprofen or Aleve as needed and Tylenol, ice, continue to work with a chiropractor on muscle relief. Follow up with primary care in the next 3-4 days not improving changes concerns worsening may consider some physical therapy at some point as well. Return to ED as needed Discharge Plan Discharge Clinical Impression: Strain of right rhomboid muscle Patient Disposition: Home, Self-Care Condition: Stable Additional Instructions: Ice to the areas needed several times a day, Advil or Aleve as needed, follow-up with primary care in 2-3 days not improving changes concerns worsening return to ED. Activity Level: Light activity Discharge Diet: Regular Prescriptions: No Action Climara Pro 0.045-0.015 mg/24 hr patch weekly 1 patch transdermal QWEEK Qty: 4 3RF estradiol 10 mcg tablet 10 mcg vaginal 2XW Qty: 14 0RF estradiol 0.05 mg/24 hr patch weekly 1 patch topical .WEEKLY Hold Instructions: Resume on 10/12/21. Label Comments: APPLY ONE PATCH EXTERNALLY WEEKLY Rx Instructions: CHANGES ON TUESDAY multivitamin Tablet 1 tab PO DAILY Probiotic 10 billion cell capsule 10 mg PO DAILY progesterone micronized 100 mg capsule 100 mg PO DAILY Qty: 90 0RF Hold Instructions: Resume on 10/12/21. Label Comments: TAKE 1 CAPSULE BY MOUTH ONE TIME DAILY estradiol 10 mcg tablet 10 mcg VAGINAL 2XW Qty: 24 0RF Hold Instructions: Resume on 10/12/21. Label Comments: INSERT 1 TABLET VAGINALLY TWICE WEEKLY Rx Instructions: INSERTS TUE AND triamcinolone acetonide 0.1 % ointment 1 applic topical BID Qty: 30 0RF Follow Up/Referrals: Zachary Green, ZEK[facility] [Primary Care Provider] - Stand Alone Forms: [employer] Info Instructions
== END 2021-11-25 13:30 | disposition home or self-care (01) ==
PROVIDERS: Emergency Provider Family Medicine; PCP Physician Assistant Medical
DX: S46.911A Strain of unspecified muscle, fascia and tendon at shoulder and upper arm level, right arm, initial encounter (principal)
CPT/HCPCS: 99283

== ENCOUNTER 2021-12-11 14:27 | Emergency (ER) | payer BC, SELFPAY ==
[2021-12-11 14:40] VITALS: BP 149/118; PULSE 80; RESP 16; TEMP 37; O2SAT 100; BMI 24.0
--- NOTE | 2021-12-11 15:10 | CRLHL7_ITS ---
For Patients: As a result of the Century Cures Act, medical imaging exams and procedure reports are released immediately into your electronic medical record. You may view this report before your referring provider. If you have questions, please contact your health care provider. INDICATION: Chest pain and back pain. TECHNIQUE: Chest 2 views. COMPARISON: None. FINDINGS: Cardiovascular and mediastinum: Heart size and vasculature are normal in caliber and appearance. Lungs and pleural spaces: Lungs are clear. No sign of infiltrate. No sign of pleural effusion. No pneumothorax. Bones and soft tissues: No significant findings. IMPRESSION: No acute or significant findings. Dictated by Ruben Cosme MD @ 12/11/2021 4:18:23 PM (Electronically Signed)
[2021-12-11 15:37] LABS: Basophils Absolute Auto 0.02 K/uL (0.00-0.30); Basophils Percent Auto 0.3 % (0.0-3.0); Eosinophils Absolute Auto 0.14 K/uL (0.00-0.50); Eosinophils Percent Auto 2.1 % (0.0-7.0); Hematocrit 42.8 % (33.0-51.0); Hemoglobin* 14.1 gm/dL (12.0-16.0); Immature Granulocytes Abs Auto 0.01 K/uL (0.00-0.30); Lymphocytes Percent Auto 46.1 % (20-44); Mean Corpuscular HGB Conc 33 gm/dL (32-36); Mean Corpuscular Hemoglobin 29 pg (26-34); Mean Corpuscular Volume 88 fL (80-100); Monocytes Percent Auto 8.2 % (0.0-11.0); Neutrophils Absolute Auto 2.91 K/uL (1.7-7.0); Neutrophils Percent Auto 43.2 % (42.0-72.0); Platelet Count* 253 K/uL (140-440); Red Blood Count 4.84 m/uL (4.00-5.20); Slide Review Reflex No; White Blood Count* 6.73 K/uL (4.50-11.00)
[2021-12-11 16:09] LABS: INR 0.96 (0.91-1.10); Prothrombin Time 13.2 Seconds
[2021-12-11 16:10] LABS: Partial Thromboplastin Time* 38 Seconds (23-33)
[2021-12-11 16:14] LABS: PCR FLU A Negative PCR FLU A (Negative); PCR FLU B Negative PCR FLU B (Negative); PCR RSV Negative PCR RSV (Negative)
[2021-12-11 16:20] LABS: NT Pro B Type NatriureticPept* 34 PG/mL (0-125)
[2021-12-11 16:24] LABS: SARS PCR* Negative SARS-CoV-2 (Negative)
[2021-12-11 17:04] LABS: D Dimer Quantitative* < 0.27 ug/ml (0.00-0.50)
--- NOTE | 2021-12-11 18:28 | ED_ITS ---
HPI - Chest Pain General Date Seen: 12/11/21 Chief Complaint: Back Injury/Pain Stated Complaint: Pain through chest and shoulder blades Time Seen by Provider: 12/11/21 14:36 Source: patient Mode of arrival: ambulatory Limitations: no limitations History of Present Illness HPI narrative: Patient is a very nice 56-year-old lady who presents here with right-sided scapular rhomboid back pain, this is been for past 2 weeks, she has noted waxing and waning but particularly bad today when it is at its worse she feels that almost comes through to her chest region or least wraps around. He notices a little bit when she lifts her right arm and moves around, this came on when she was doing some grooming outside a couple weeks ago she was seen in this emergency room at that point, and discharged. That note is reviewed. She does not have any pain with exertion walking around, but certain ways when she sleeps she notices increased pain, also when she occasionally lifts up her neck. She h as noted no sweating, no diaphoresis, no nausea vomiting, she has recovered in September from a partial colectomy secondary to recurrent diverticulitis. She is here today at the behest of her son, he is home for deer hunting with a couple friends, and 1 of the friends is a PA who suggested she come in for a D- dimer. No past history of DVTs pulmonary emboli she denies no syncopal episodes no coughing up blood, Timing of current episode: episodic Risk Factors Coronary artery disease risk factors: none Thoracic aortic dissection risk factors: none Related Data On Oral Contraceptives: No Home Medications Medication Instructions Recorded Confirmed Lactobacillus acidophilus 10 10 mg PO DAILY 08/19/21 11/17/21 billion cell capsule (Probiotic) multivitamin 1 tab PO DAILY 08/19/21 11/17/21 Previous Rx's Medication Instructions Recorded estradiol 0.045 mg-levonorgestrel 1 patch transdermal QWEEK #4 ea 11/09/21 0.015 mg/24hr weekly transderm patch (Climara Pro) triamcinolone acetonide 0.1 % 1 applic topical BID #30 grams 11/23/21 topical ointment estradiol 10 mcg vaginal tablet 10 mcg vaginal 2XW #24 tabs 12/07/21 Allergies Allergy/AdvReac Type Severity Reaction Status Date / Time piperacillin [From Zosyn] Allergy Severe Rash Verified 11/17/21 12:50 tazobactam [From Zosyn] Allergy Severe Rash Verified 11/17/21 12:50 ciprofloxacin Allergy Intermediate Rash Verified 11/17/21 12:50 metronidazole [From Flagyl] Allergy Intermediate Rash Verified 11/17/21 12:50 Review of Systems Status of ROS Reports: 10 or more systems reviewed and unremarkable except as noted in History and below PFSH PFS Medical History Chronic neck pain Colonic diverticular abscess Diverticulitis Gastroesophageal reflux disease Irritable bowel syndrome Thyroid nodule Surgical History H/O lymph node excision History of wisdom tooth extraction S/P laparoscopic-assisted sigmoidectomy Family History Father Alcohol abuse Mother Alcohol abuse Other Alcoholism Depression Social History Narrative: Non-smoker Social alcohol use (2 per day) Previous occupational history: 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 Highest level of school completed/degree received: high school graduate Smoking Status: Never smoker Do you use any of these nicotine containing products: None Second hand tobacco smoke exposure: No How often do you have a drink containing alcohol: monthly or less How many standard drinks containing alcohol do you have on a typical day: 1 or 2 How often do you have six or more drinks on one occasion: Never AUDIT-C Alcohol total score: 1 Non-prescribed substance use: denies use Caffeine: Yes service: No Exam Narrative Exam Narrative: On examination she is in no deaf apparent distress, sitting in room 7, pupils are equal round reactive to light there is no scleral icterus or redness TMs bilaterally are normal, oropharynx is normal, there is no adenopathy anterior posterior chains, her neck is supple carotid upstrokes are equal bilaterally, cranial nerves 3-12 are normal, JVP is flat, absence of meningismus, she is tender over her right rhomboid on very minimal palpation there is no masses noted, and no percussion tenderness. Chest is good air entry bilaterally with no wheezing crackles noted she has not splint when she breathes. Heart sounds no clicks murmurs or gallops her S1-S2 is normal. Abdomen is soft and scaphoid there is no guarding no hepatosplenomegaly her bowel sounds are normal, normal external pulses, distally and no pitting edema negative Homans sign. Const Vital Signs, click to edit/add: Vital Signs - 24 hr 12/11/21 14:40 Temperature 98.6 F Pulse Rate [Left Pulse Oximeter] 80 Respiratory Rate 16 Blood Pressure [Right Upper Arm] 149/118 H Pulse Oximetry 100 Documenting provider has reviewed patient's vital signs: yes Course Course Hospital Course: I went back in and discussed with the patient, all your laboratory tests including D-dimer look good, I do not think she is having aortic dissection, pulmonary emboli and or significant cardiac issues given her normality of her test the length of time this is occurred, and her clinical examination which makes me think this is more of a musculoskeletal issue. She was very comfortable this after our discussion I think regular ibuprofen 600 mg p.o. t.i.d. would be important to help her. Follow-up with primary care return here if worsening signs and symptoms. Vital Signs Vital signs: Initial Vital Signs Temperature 98.6 F 12/11/21 14:40 Temperature Source Temporal Artery Scan 12/11/21 14:40 Pulse Rate 80 12/11/21 14:40 Pulse Rhythm 12/11/21 14:40 Pulse Strength 3+ Normal 12/11/21 14:40 Respiratory Rate 16 12/11/21 14:40 Blood Pressure 149/118 H 12/11/21 14:40 Blood Pressure Mean 128 12/11/21 14:40 Blood Pressure Position Sitting 12/11/21 14:40 Pulse Oximetry 100 12/11/21 14:40 Vital Signs Temperature 98.6 F 12/11/21 14:40 Pulse Rate 80 12/11/21 14:40 Respiratory Rate 16 12/11/21 14:40 Blood Pressure 149/118 H 12/11/21 14:40 Pulse Oximetry 100 12/11/21 14:40 Temperature 98.6 F 12/11/21 14:40 Pulse Rate 80 12/11/21 14:40 Respiratory Rate 16 12/11/21 14:40 Blood Pressure 149/118 H 12/11/21 14:40 Pulse Oximetry 100 12/11/21 14:40 MDM - Chest Pain MDM Narrative Medical decision making narrative: During the evaluation of this patient I considered multiple differential diagnosis is. The life-threatening differential diagnosis include coronary dis ease/GA, pulmonary embolism, pneumothorax, pneumonia, and aortic dissection. Other differential diagnosis included but were not limited to pericarditis, myocarditis, chest wall pain, GERD, esophageal rupture, rib fracture contusion, pleurisy, as well as other etiologies. Differential Diagnosis Differential diagnosis: Likely fracture of rib, pneumothorax, stable angina, unstable angina pectoris, atypical chest pain, st elevation myocardial infarction, chest pain and biliary colic Medical Records Data Attestation: I reviewed the patient's medical records. Medical records narrative: Reviewed the most recent ER visit Lab Data Attestation: I reviewed the patient's lab results. Labs: Lab Results 12/11/21 12/11/21 12/11/21 Range/Units 15:25 15:30 15:30 WBC 6.73 (4.50-11.00) K/uL RBC 4.84 (4.00-5.20) m/uL Hgb 14.1 (12.0-16.0) gm/dL Hct 42.8 (33.0-51.0) % MCV 88 (80-100) fL MCH 29 (26-34) pg MCHC 33 (32-36) gm/dL RDW Coeff of Jason 13.0 (11.5-15.5) % Plt Count 253 (140-440) K/uL Neut % (Auto) 43.2 (42.0-72.0) % Lymph % (Auto) 46.1 H (20-44) % Converse % (Auto) 8.2 (0.0-11.0) % Eos % (Auto) 2.1 (0.0-7.0) % Baso % (Auto) 0.3 (0.0-3.0) % Neut # (Auto) 2.91 (1.7-7.0) K/uL Lymph # (Auto) 3.10 H (0.90-2.90) K/uL Converse # (Auto) 0.60 (0.00-0.90) K/UL Eos # (Auto) 0.14 (0.00-0.50) K/uL Baso # (Auto) 0.02 (0.00-0.30) K/uL Abs Immat Gran (auto) 0.01 (0.00-0.30) K/uL INR (0.91-1.10) APTT (23-33) Seconds D-Dimer Quant (PE/DVT) < 0.27 (0.00-0.50) ug/ml NT-Pro-B Natriuret Pep (0-125) PG/mL SARS-CoV-2 (PCR) Negative SARS-CoV-2 (Negative) Influenza Type A (PCR) Negative PCR FLU A (Negative) Influenza Type B (PCR) Negative PCR FLU B (Negative) RSV (PCR) Negative PCR RSV (Negative) POC Troponin I (0.01-0.04) ng/ml 12/11/21 12/11/21 12/11/21 Range/Units 15:30 15:33 15:33 WBC (4.50-11.00) K/uL RBC (4.00-5.20) m/uL Hgb (12.0-16.0) gm/dL Hct (33.0-51.0) % MCV (80-100) fL MCH (26-34) pg MCHC (32-36) gm/dL RDW Coeff of Jason (11.5-15.5) % Plt Count (140-440) K/uL Neut % (Auto) (42.0-72.0) % Lymph % (Auto) (20-44) % Converse % (Auto) (0.0-11.0) % Eos % (Auto) (0.0-7.0) % Baso % (Auto) (0.0-3.0) % Neut # (Auto) (1.7-7.0) K/uL Lymph # (Auto) (0.90-2.90) K/uL Converse # (Auto) (0.00-0.90) K/UL Eos # (Auto) (0.00-0.50) K/uL Baso # (Auto) (0.00-0.30) K/uL Abs Immat Gran (auto) (0.00-0.30) K/uL INR 0.96 (0.91-1.10) APTT 38 H (23-33) Seconds D-Dimer Quant (PE/DVT) (0.00-0.50) ug/ml NT-Pro-B Natriuret Pep 34 (0-125) PG/mL SARS-CoV-2 (PCR) (Negative) Influenza Type A (PCR) (Negative) Influenza Type B (PCR) (Negative) RSV (PCR) (Negative) POC Troponin I 0.00 L (0.01-0.04) ng/ml Imaging Data Chest x-ray: Attestation: I have reviewed the pertinent imaging results. My impression: Negative chest x-ray Radiologist's impression: Patient: SAVANNAH JOHNSON Facility: [facility] Site . Site : 1965 Study: XRay Chest 2 view-12/11/2021 3:50:49 PM Ordering Physician: Grayson Mcnair Final Report: INDICATION: Chest pain and back pain. TECHNIQUE: Chest 2 views. COMPARISON: None. FINDINGS: Cardiovascular and mediastinum: Heart size and vasculature are normal in caliber and appearance. Lungs and pleural spaces: Lungs are clear. No sign of infiltrate. No sign of pleural effusion. No pneumothorax. Bones and soft tissues: No significant findings. IMPRESSION: No acute or significant findings. Dictated by Ruben Cosme MD @ 12/11/2021 4:18:23 PM (Electronic Signature) ECG Data Attestation: I personally reviewed and interpreted this ECG as follows: ECG interpretation date: 12/11/21 Prior ECG tracings: not available for review Interpretation: EKG shows normal sinus rhythm with sinus arrhythmia and otherwise normal. Discharge Plan Discharge Clinical Impression: Back pain Patient Disposition: Home, Self-Care Condition: Stable Instructions: Back Pain (ED) Additional Instructions: Home rest follow-up with primary care for further evaluation and treatment, reassuring finding seen today in the emergency department, ibuprofen 800 mg p.o. t.i.d. is a suggestion for your discomfort. Prescriptions: No Action Climara Pro 0.045-0.015 mg/24 hr patch weekly 1 patch transdermal QWEEK Qty: 4 3RF multivitamin Tablet 1 tab PO DAILY Probiotic 10 billion cell capsule 10 mg PO DAILY triamcinolone acetonide 0.1 % ointment 1 applic topical BID Qty: 30 0RF estradiol 10 mcg tablet 10 mcg vaginal 2XW Qty: 24 3RF Follow Up/Referrals: Zachary Green PA-C [Primary Care Provider] - Stand Alone Forms: [employer] Info Instructions
--- OUTSIDE RECORDS SUMMARY | 2021-12-12 15:46 | XMS_ITS | Continuity of Care Document ---
:1965 Author Organization [facility] Address [address] [address] [place] [address] Phone Care Team Providers Name Role Phone [...] Copied on Encounter [facility] No Information [facility] JESSENIA, [address] [address], [facility], [place], [place], [address] [id number], [address], [place] [facility] tel:+[phone] [place], [place], [phone] , [place]. tel:[phone] Office Cons [facility] RLQ abdominal Erik [facility] Symptoms painChronic PAC Provide r: Mark RUELAS, or constipationHistory [address] Concerns of colonic [address] [place], [address], (chief diverticulitis [address] [facility] complaint) [facility], [place], [place], [address], [id number], [address], [facility] , [place], tel: [place], [phone]. [phone] tel: , . [phone] tel: [phone] [facility] [place] No Information [facility] MD Jeanine RUELAS, [address] [address], [facility], [place], [place], [place] [id number], [address], [place] tel: [place], [place], [phone] , [place]. tel: [phone] Family History Family Member Type Diagnosis Age [...] Other Registry tetanus toxoid, reduced administered Note: [facility] bi-directional diphtheria toxoid, and acellular interface ; Source: Other pertussis vaccine, adsorbed Flor stry Havrix administered Note: [facility] bi-di rectional interface ; Sour ce: Other Registry yellow fever vaccine administered Note: [facility] bi-directional interface ; Sour ce: Other Registry influenza, live, intranasal, administered Not e: [facility] bi-directional quadrivalent interface ; Sour ce: Other Registry Novel [id number], all administered Not e: [facility] bi-directional formulations interface ; Sour ce: Other Registry Payers Payer name Insurance type Covered green party ID Authorization(s ) [employer] [id number] Social History Type Description Quantity Date Captured [...] significa nt for episode of diverticulitis in [facility]2021, irritable bowel syndrome and a thyroid nodule. Patient also has a history o f having 7 lymph nodes removed from her nec k. I received 24 pages of records from her [facility] care providers which I have reviewed. Vonda roche, the patient was hospitalized in [facility] for acute diverticulitis. She was initially [...] reports she went on a trip to [place] and was hesit ant to take the [...] severe as when she presented to the [facility]. She notes this radiates to the back [...]
== END 2021-12-11 17:26 | disposition home or self-care (01) ==
PROVIDERS: Emergency Provider Family Medicine; PCP Physician Assistant Medical
DX: M54.9 Dorsalgia, unspecified (principal)
CPT/HCPCS: 36415; 71046; 83880; 85025; 85379; 85610; 85730; 87502; 87634; 87635; 93005; 99284

== ENCOUNTER 2022-03-04 09:47 | Outpatient (CLI) | payer BC, SELFPAY ==
--- NOTE | 2022-03-04 10:15 | CRLHL7_ITS ---
For Patients: As a result of the Century Cures Act, medical imaging exams and procedure reports are released immediately into your electronic medical record. You may view this report before your referring provider. If you have questions, please contact your health care provider. Technique: Water-soluble contrast enema performed. Fluoroscopy time 1 minutes 40 seconds. Indication: RUNNY STOOLS POST SURG. EVALUATE FOR ANASTOMOTIC STRICTURE Comparison: None. Findings: Postop changes of sigmoidectomy. No stricture. No obstruction. No extravasation. No inflammation. No diverticula. Normal caliber of the colon without areas of narrowing to explain symptoms. Impression: Normal single contrast enema examination status post sigmoidectomy with primary anastomosis. Dictated by Lj Pastrana MD @ 03/04/2022 12:03:08 PM (Electronically Signed)
== END 2022-03-04 09:48 | disposition home or self-care (01) ==
LOC: RAD 09:48
PROVIDERS: PCP Physician Assistant Medical; Visit Provider Surgery
DX: R19.5 Other fecal abnormalities (principal)
CPT/HCPCS: 74270

== ENCOUNTER 2023-01-03 09:59 | Outpatient (CLI) | payer BC, SELFPAY | END 2023-01-03 10:00 | disposition home or self-care (01) | PROVIDERS: PCP Physician Assistant Medical; Visit Provider Physician Assistant Medical | DX: R11.0 Nausea (principal); R06.02 Shortness of breath | CPT/HCPCS: 80048; 85379 ==

== ENCOUNTER 2023-02-08 09:56 | Outpatient (CLI) | payer BC, SELFPAY | END 2023-02-08 09:57 | disposition home or self-care (01) | PROVIDERS: PCP Physician Assistant Medical; Visit Provider Obstetrics & Gynecology | DX: Z01.419 Encounter for gynecological examination (general) (routine) without abnormal findings (principal); N93.9 Abnormal uterine and vaginal bleeding, unspecified; Z13.6 Encounter for screening for cardiovascular disorders | CPT/HCPCS: 80061; 84443 ==

== ENCOUNTER 2023-02-09 10:43 | Outpatient (CLI) | payer BC, SELFPAY ==
--- NOTE | 2023-02-09 11:00 | CRLHL7_ITS ---
For Patients: As a result of the Century Cures Act, medical imaging exams and procedure reports are released immediately into your electronic medical record. You may view this report before your referring provider. If you have questions, please contact your health care provider. CLINICAL HISTORY: Abnormal uterine bleeding TECHNIQUE: Real time, angulo scale images were acquired of the pelvis using a transabdominal and transvaginal approach. Color Doppler analysis was performed of the ovaries. FINDINGS: The uterus measures 7.3 x 5 x 6 centimeters endometrium measures 1.2 centimeters. Right ovary is unremarkable measuring 3 x 1.3 x 1.6 centimeters normal blood flow to the right ovary left ovary is unremarkable measuring 2.1 x 1.3 x 1.3 centimeters. Normal blood flow to the left ovary. IMPRESSION: 1.2 centimeter endometrial stripe. Dictated by Bharti Chinchilla MD @ 02/11/2023 5:45:56 AM (Electronically Signed)
== END 2023-02-09 10:44 | disposition home or self-care (01) ==
LOC: US 10:44
PROVIDERS: PCP Physician Assistant Medical; Visit Provider Obstetrics & Gynecology
DX: N93.9 Abnormal uterine and vaginal bleeding, unspecified (principal)
CPT/HCPCS: 76830; 76856; 93976

== ENCOUNTER 2023-03-09 07:05 | Day surgery (SDC) | payer BC, SELFPAY ==
[2023-03-09] MEDS: LACTATED RINGERS 1000 ML 1,000 ML 100 ML IV (07:15)
[2023-03-09 07:28] VITALS: BP 108/81; PULSE 81; RESP 16; TEMP 36.7; O2SAT 98; BMI 25.2
[2023-03-09] MEDS: SODIUM CHLORIDE 0.9 % (FLUSH) 10 ML SYRINGE IVF (07:40)
[2023-03-09 08:03] LABS: Hemoglobin* 14.4 gm/dL (12.0-16.0)
--- NOTE | 2023-03-09 08:10 | W.ANESCHARGE ---
Anesthesia Charges Start Date/Time Anesthesia Start Date: 03/09/23 Anesthesia Start Time: 08:38 Stop Date/Time Anesthesia Stop Date: 03/09/23 Anesthesia Stop Time: 09:20
--- NOTE | 2023-03-09 08:40 | W.PM.H&PU ---
History & Physical Update History & Physical Update H&P Reviewed and patient assessed: No changes noted H&P Updates: Patient would like to proceed with Mirena IUD placement. Informed consent updated and initialled by patient.
--- NOTE | 2023-03-09 09:11 | P.GYNPRC_ITS ---
Procedure Note Date of procedure: 03/09/23 Pre-op diagnosis: Postmenopausal bleeding Post-op diagnosis: same Procedure: Hysteroscopy, dilation and curettage, Mirena IUD placement Anesthesia: MAC Complications: None Surgeon: Tala Villasenor MD Estimated blood loss (mL): 5 IV fluids (mL): 200 Urine Output (mL): 130 Pathology: specimen obtained, sent to pathology (Endometrial curettings) Condition: stable Disposition: same day Findings: Speculum exam: Multiparous cervix, grossly normal w/o abnormal discharge. Intrauterine: Bilateral cornual openings seen. Thick endometrium. Uterine sound 7cm. Procedure Description: Patient was taken to the OR were MAC anesthesia was administered without diff iculty. She was placed in the dorsal lithotomy position with Miah type stirrups.Patient was then prepared and draped in the normal sterile fashion. A bivalved speculum was inserted in the posterior aspect of the vagina. 1% Lidocaine with epi was injected at 2 and 11 o'clock a total of about 5mL utilized. A single-tooth tenaculum was used to grasp the anterior lip of the cervix. The uterus was carefully sounded to 7 cm. The cervical os was sequentially dilated to accommodate the 5 mm TrueClear hysteroscope using Hegar dilators. A 5 mm 30 degree TrueClear hysteroscope was introduced under direct visualization, and the uterus was distended with normal saline. Findings as above. Soft tissue incisor blade from TrueClear hysteroscope system was introduced under direct visualization and endometrial curettings performed. Hysteroscope removed under direct visualization. Mirena IUD was placed without difficulty, strings were cut and left about 3 -4 cm long. Tenaculum was removed from the cervix and good hemostasis was noted at puncture sites. Patient tolerated the procedure well. Instrument and sponge counts were correct x2. The patient was awakened from MAC anesthesia and taken to the recovery room in a stable condition. The patient will go home after recovering from anesthesia and meeting all the criteria for discharge. She was given instruction regarding follow-up visit in 2 weeks at [facility] and instructions for pain medication. Fluid deficit: 130mL
[2023-03-09 09:18] VITALS: BP 102/62; PULSE 72; RESP 16; TEMP 36.3; O2SAT 99
--- NOTE | 2023-03-09 09:18 | SUR.OPER ---
Deficit 35
--- NOTE | 2023-03-09 09:21 | W.ANESCHARGE ---
Anesthesia Charges Start Date/Time Anesthesia Start Date: 03/09/23 Anesthesia Start Time: 08:38 Stop Date/Time Anesthesia Stop Date: 03/09/23 Anesthesia Stop Time: 09:20
[2023-03-09 09:33] VITALS: BP 102/62; PULSE 61; RESP 16; O2SAT 100
[2023-03-09 09:48] VITALS: BP 109/62; PULSE 56; RESP 16; O2SAT 100
== END 2023-03-09 10:11 | disposition home or self-care (01) ==
PROVIDERS: PCP Physician Assistant Medical; Visit Provider Obstetrics & Gynecology
PROC: 0UDB8ZZ Extraction of Endometrium, Via Natural or Artificial Opening Endoscopic (ICD-10-PCS; CPT 58558; principal; 2023-03-09 08:30)
DX: N95.0 Postmenopausal bleeding (principal)
CPT/HCPCS: 58558; 00952; 36415; 85018; 88305; J2250; J2405; J2704; J3010; J7120; J7298

== ENCOUNTER 2023-03-16 19:43 | Emergency (ER) | payer BC, SELFPAY ==
[2023-03-16] VITALS (11 sets, daily range): BP systolic 116–127; BP diastolic 71–86; PULSE 59–73; RESP 18; TEMP 37; O2SAT 98–100; BMI 24.9
--- NOTE | 2023-03-16 20:23 | ED_ITS ---
HPI - General Adult General Chief complaint: Chest Pain Stated complaint: Chest pain 1wk post op Time Seen by Provider: 03/16/23 19:49 Source: patient Mode of arrival: ambulatory Limitations: no limitations History of Present Illness HPI narrative: 57-year-old female coming in today complaining of chest pain that started this morning. Pain is substernal and does not radiate. Movement and deep breaths make it worse. Patient is 1 week postop a D and C that was uneventful. Patient states that she does feel a little short of breath. This occurs both at rest and with physical activity. She denies any fevers or chills. She has not been coughing. She denies any new physical activity, states that she went back to her usual daily activities the day after her D&C. No changes in her bowel habits, no urinary symptoms. She denies any vertigo. No vomiting or nausea. No changes in her appetite. She states that she was little lightheaded yesterday. Slight sensation of that today. She does state that she has had episodes like this in the past that she worse told occurred because she has scar tissue pulling on her spine. However, she states that this episode is a bit different. Related Data Previous Rx's Medication Instructions Recorded estradiol 0.05 mg/24 hr weekly 1 patch transdermal QWEEK #12 06/04/22 transdermal patch patches famciclovir 500 mg tablet 500 mg PO DAILY #60 tabs 03/03/23 Allergies Allergy/AdvReac Type Severity Reaction Status Date / Time piperacillin [From Zosyn] Allergy Severe Rash Verified 03/16/23 20:00 tazobactam [From Zosyn] Allergy Severe Rash Verified 03/16/23 20:00 ciprofloxacin Allergy Intermediate Rash Verified 03/16/23 20:00 metronidazole [From Flagyl] Allergy Intermediate Rash Verified 03/16/23 20:00 Review of Systems Status of ROS: Reports: 10 or more systems reviewed and unremarkable except as noted in History and below [facility] Medical History Herpes simplex ?B00.9 - Herpesviral infection, unspecified (ICD-10) Hematuria ?R31.9 - Hematuria, unspecified (ICD-10) C. difficile colitis ?A04.72 - Enterocolitis due to Clostridium difficile, not specified as recurrent (ICD-10) Colonic diverticular abscess ?K57.20 - Diverticulitis of large intestine with perforation and abscess without bleeding (ICD-10) Thyroid nodule ?E04.1 - Nontoxic single thyroid nodule (ICD-10) Irritable bowel syndrome ?K58.9 - Irritable bowel syndrome without diarrhea (ICD-10) Gastroesophageal reflux disease ?K21.9 - Gastro-esophageal reflux disease without esophagitis (ICD-10) Chronic neck pain ?M54.2 - Cervicalgia (ICD-10) ?G89.29 - Other chronic pain (ICD-10) Diverticulitis ?K57.92 - Diverticulitis of intestine, part unspecified, without perforation or abscess without bleeding (ICD-10) Surgical History S/P laparoscopic-assisted sigmoidectomy ?Z90.49 - Acquired absence of other specified parts of digestive tract (ICD- 10) H/O lymph node excision ?Z98.890 - Other specified postprocedural states (ICD-10) History of wisdom tooth extraction ?K08.409 - Partial loss of teeth, unspecified cause, unspecified class (ICD- 10) Family History Father Alcohol abuse Mother Alcohol abuse Other Alcoholism Depression Social History Narrative: Non-smoker Social alcohol use (2 per day) Previous occupational history: She works at a 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 Highest level of school completed/degree received: high school graduate Smoking Status: Current some day smoker What tobacco products do you use: cigarettes Smoking packs per day: 0 Smoking cigarettes per day: 0.0 Do you use any of these nicotine containing products: None Nicotine containing products detail: Social smoker, not daily Second hand tobacco smoke exposure: No How often do you have a drink containing alcohol: 4 or more times a week Alcohol type: wine and hard liquor How many standard drinks containing alcohol do you have on a typical day: 5 or 6 How often do you have six or more drinks on one occasion: Monthly AUDIT-C Alcohol total score: 8 Non-prescribed substance use: denies use Caffeine: Yes Little interest or pleasure in doing things: several days Feeling down, depressed, or hopeless: several days Are you using contraception or practicing any form of control: No service: No Exam Narrative: Exam Narrative: Well-nourished well-developed patient in no acute distress. Alert and oriented. Answers questions appropriately. Mood and affect are appropriate. Thoughts are goal oriented and rational. No tangential or magical thinking noted. Patient speaks in full sentences without needing to catch her breath. HEENT: Normocephalic atraumatic. Pupils are equally round reactive to light. Extraocular muscles are intact. Conjunctivae are moist without any icterus noted. Moist mucous membranes. Posterior pharynx is normal. Neck is soft without any lymphadenopathy or thyromegaly. No masses are appreciated. Cardiovascular: Heart is regular rate and rhythm S1 and S2 are present without any murmurs. Mild discomfort with pressure on the sternum. Lungs: Clear to auscultation bilaterally no wheezes rhonchi or rales are appreciated. She is able to take deep breaths. Abdomen: Soft and nontender nondistended with normal bowel sounds. No guarding or rebound. No masses or organomegaly appreciated. Extremities: Bilateral lower extremities are without edema. Normal DP and PT pulses. Skin: Well perfused without any obvious rashes. Const: Vital Signs, click to edit/add: Vital Signs - 24 hr 03/16/23 19:53 Temperature 98.6 F Pulse Rate [Pulse Oximeter] 73 Respiratory Rate 18 Blood Pressure [Ri ght Upper Arm] 127/86 Pulse Oximetry 99 Oxygen Delivery Me thod Room Air Course Course ED Course: EKG, read by me, shows normal sinus rhythm with a pulse of 64. Lab, including CBC, chemistries, LFTs, lipase, CRP, D-dimer, were unremarkable. Serial troponins x2 unremarkable. Repeat EKG unchanged. Chest x-ray, read by me, does not show any acute pathology. Vital Signs Vital signs: Initial Vital Signs Temperature 98.6 F 03/16/23 19:53 Temperature Source Temporal Artery Scan 03/16/23 19:53 Pulse Rate 73 03/16/23 19:53 Respiratory Rate 18 03/16/23 19:53 Blood Pressure 127/86 03/16/23 19:53 Blood Pressure Mean 99 03/16/23 19:53 Blood Pressure Position Sitting 03/16/23 19:53 Pulse Oximetry 99 03/16/23 19:53 Oxygen Delivery Method Room Air 03/16/23 19:53 Vital Signs Temperature 98.6 F 03/16/23 19:53 Pulse Rate 73 03/16/23 19:53 Respiratory Rate 18 03/16/23 19:53 Blood Pressure 127/86 03/16/23 19:53 Pulse Oximetry 99 03/16/23 19:53 Oxygen Delivery Method Room Air 03/16/23 19:53 Temperature 98.6 F 03/16/23 19:53 Pulse Rate 73 03/16/23 19:53 Respiratory Rate 18 03/16/23 19:53 Blood Pressure 127/86 03/16/23 19:53 Pulse Oximetry 99 03/16/23 19:53 Oxygen Delivery Method Room Air 03/16/23 19:53 Medical Decision Making MDM Narrative Medical decision making narrative: 57-year-old female with atypical chest pain. Differential diagnoses include acute coronary syndrome, pneumothorax, PE, pneumonia-I believe we have effectively ruled all these things out. This could be musculoskeletal in nature, GERD. We discussed following up with primary care. Medical Records Medical records reviewed: Yes I reviewed the patient's medical records Lab Data Lab results reviewed: Yes I reviewed the patient's lab results Labs: Lab Results 03/16/23 03/16/23 03/16/23 Range/Units 20:22 20:40 20:40 WBC 7.56 (4.50-11.00) K/uL RBC 4.57 (4.00-5.20) m/uL Hgb 14.1 (12.0-16.0) gm/dL Hct 42.5 (33.0-51.0) % MCV 93 (80-100) fL MCH 31 (26-34) pg MCHC 33 (32-36) gm/dL RDW Coeff of Jason 12.1 (11.5-15.5) % Plt Count 252 (140-440) K/uL Neut % (Auto) 41.2 L (42.0-72.0) % Lymph % (Auto) 47.0 H (20-44) % [place] % (Auto) 8.9 (0.0-11.0) % Eos % (Auto) 2.5 (0.0-7.0) % Baso % (Auto) 0.3 (0.0-3.0) % Neut # (Auto) 3.10 (1.7-7.0) K/uL Lymph # (Auto) 3.60 H (0.90-2.90) K/uL [place] # (Auto) 0.70 (0.00-0.90) K/UL Eos # (Auto) 0.19 (0.00-0.50) K/uL Baso # (Auto) 0.02 (0.00-0.30) K/uL Abs Immat Gran (auto) 0.01 (0.00-0.30) K/uL Imm/Tot Granulo (auto) 0.1 % D-Dimer Quant (PE/DVT) < 0.27 (0.00-0.50) ug/ml Sodium 135 (135-149) mmol/L Potassium 4.5 (3.6-5.1) mmol/L Chloride 103 (96-114) mmol/L Carbon Dioxide 27 (20-32) mmol/L Anion Gap 5 L (7-15) mEq/L BUN 19 (7-30) mg/dL Creatinine 0.7 (0.5-1.5) mg/dL Estimated Creat Clear 77.49 Estimated GFR 101 ml/min Glucose 100 (60-115) mg/dL Lactate 0.6 (0.5-1.9) mmol/L Calcium 9.9 (8.4-10.6) mg/dL Total Bilirubin 0.2 Cancelled (0.1-1.5) mg/dL Direct Bilirubin 0.0 (0.0-0.5) mg/dL AST (12-35) U/L ALT (4-35) U/L Alkaline Phosphatase (40-150) U/L Troponin I (0.01-0.04) ng/mL C-Reactive Protein (0.5-1.0) mg/dL Total Protein (6.0-8.3) g/dL Albumin (3.3-5.0) g/dL Lipase (23-300) U/L POC Troponin I 0.00 L (0.01-0.04) ng/ml 03/16/23 03/16/23 03/16/23 Range/Units 20:40 20:40 20:40 WBC (4.50-11.00) K/uL RBC (4.00-5.20) m/uL Hgb (12.0-16.0) gm/dL Hct (33.0-51.0) % MCV (80-100) fL MCH (26-34) pg MCHC (32-36) gm/dL RDW Coeff of Jason (11.5-15.5) % Plt Count (140-440) K/uL Neut % (Auto) (42.0-72.0) % Lymph % (Auto) (20-44) % [place] % (Auto) (0.0-11.0) % Eos % (Auto) (0.0-7.0) % Baso % (Auto) (0.0-3.0) % Neut # (Auto) (1.7-7.0) K/uL Lymph # (Auto) (0.90-2.90) K/uL [place] # (Auto) (0.00-0.90) K/UL Eos # (Auto) (0.00-0.50) K/uL Baso # (Auto) (0.00-0.30) K/uL Abs Immat Gran (auto) (0.00-0.30) K/uL Imm/Tot Granulo (auto) % D-Dimer Quant (PE/DVT) (0.00-0.50) ug/ml Sodium (135-149) mmol/L Potassium (3.6-5.1) mmol/L Chloride (96-114) mmol/L Carbon Dioxide (20-32) mmol/L Anion Gap (7-15) mEq/L BUN (7-30) mg/dL Creatinine (0.5-1.5) mg/dL Estimated Creat Clear Estimated GFR ml/min Glucose (60-115) mg/dL Lactate (0.5-1.9) mmol/L Calcium (8.4-10.6) mg/dL Total Bilirubin (0.1-1.5) mg/dL Direct Bilirubin Cancelled (0.0-0.5) mg/dL AST 21 Cancelled (12-35) U/L ALT 19 Cancelled (4-35) U/L Alkaline Phosphatase 61 (40-150) U/L Troponin I (0.01-0.04) ng/mL C-Reactive Protein (0.5-1.0) mg/dL Total Protein (6.0-8.3) g/dL Albumin (3.3-5.0) g/dL Lipase (23-300) U/L POC Troponin I (0.01-0.04) ng/ml 03/16/23 03/16/23 03/16/23 Range/Units 20:40 20:40 20:40 WBC (4.50-11.00) K/uL RBC (4.00-5.20) m/uL Hgb (12.0-16.0) gm/dL Hct (33.0-51.0) % MCV (80-100) fL MCH (26-34) pg MCHC (32-36) gm/dL RDW Coeff of Jason (11.5-15.5) % Plt Count (140-440) K/uL Neut % (Auto) (42.0-72.0) % Lymph % (Auto) (20-44) % [place] % (Auto) (0.0-11.0) % Eos % (Auto) (0.0-7.0) % Baso % (Auto) (0.0-3.0) % Neut # (Auto) (1.7-7.0) K/uL Lymph # (Auto) (0.90-2.90) K/uL [place] # (Auto) (0.00-0.90) K/UL Eos # (Auto) (0.00-0.50) K/uL Baso # (Auto) (0.00-0.30) K/uL Abs Immat Gran (auto) (0.00-0.30) K/uL Imm/Tot Granulo (auto) % D-Dimer Quant (PE/DVT) (0.00-0.50) ug/ml Sodium (135-149) mmol/L Potassium (3.6-5.1) mmol/L Chloride (96-114) mmol/L Carbon Dioxide (20-32) mmol/L Anion Gap (7-15) mEq/L BUN (7-30) mg/dL Creatinine (0.5-1.5) mg/dL Estimated Creat Clear Estimated GFR ml/min Glucose (60-115) mg/dL Lactate (0.5-1.9) mmol/L Calcium (8.4-10.6) mg/dL Total Bilirubin (0.1-1.5) mg/dL Direct Bilirubin (0.0-0.5) mg/dL AST (12-35) U/L ALT (4-35) U/L Alkaline Phosphatase Cancelled (40-150) U/L Troponin I < 0.01 L Cancelled (0.01-0.04) ng/mL C-Reactive Protein < 0.5 L (0.5-1.0) mg/dL Total Protein 7.1 Cancelled (6.0-8.3) g/dL Albumin 4.2 (3.3-5.0) g/dL Lipase (23-300) U/L POC Troponin I (0.01-0.04) ng/ml 03/16/23 03/16/23 Range/Units 20:40 20:40 WBC (4.50-11.00) K/uL RBC (4.00-5.20) m/uL Hgb (12.0-16.0) gm/dL Hct (33.0-51.0) % MCV (80-100) fL MCH (26-34) pg MCHC (32-36) gm/dL RDW Coeff of Jason (11.5-15.5) % Plt Count (140-440) K/uL Neut % (Auto) (42.0-72.0) % Lymph % (Auto) (20-44) % [place] % (Auto) (0.0-11.0) % Eos % (Auto) (0.0-7.0) % Baso % (Auto) (0.0-3.0) % Neut # (Auto) (1.7-7.0) K/uL Lymph # (Auto) (0.90-2.90) K/uL [place] # (Auto) (0.00-0.90) K/UL Eos # (Auto) (0.00-0.50) K/uL Baso # (Auto) (0.00-0.30) K/uL Abs Immat Gran (auto) (0.00-0.30) K/uL Imm/Tot Granulo (auto) % D-Dimer Quant (PE/DVT) (0.00-0.50) ug/ml Sodium (135-149) mmol/L Potassium (3.6-5.1) mmol/L Chloride (96-114) mmol/L Carbon Dioxide (20-32) mmol/L Anion Gap (7-15) mEq/L BUN (7-30) mg/dL Creatinine (0.5-1.5) mg/dL Estimated Creat Clear Estimated GFR ml/min Glucose (60-115) mg/dL Lactate (0.5-1.9) mmol/L Calcium (8.4-10.6) mg/dL Total Bilirubin (0.1-1.5) mg/dL Direct Bilirubin (0.0-0.5) mg/dL AST (12-35) U/L ALT (4-35) U/L Alkaline Phosphatase (40-150) U/L Troponin I (0.01-0.04) ng/mL C-Reactive Protein (0.5-1.0) mg/dL Total Protein (6.0-8.3) g/dL Albumin Cancelled (3.3-5.0) g/dL Lipase 120 Cancelled (23-300) U/L POC Troponin I (0.01-0.04) ng/ml Imaging Data Chest x-ray: Attestation: I have reviewed the pertinent imaging results. Radiologist's impression: Chest 2 views. COMPARISON: January 03, 2023. FINDINGS: Cardiovascular and mediastinum: Cardiomediastinal silhouette is within normal limits. Lungs and pleural spaces: Lungs are clear. No sign of pleural effusion. No pneumothorax. Bones and soft tissues: No significant findings. IMPRESSION: No acute findings and no significant change from the prior exam. Discharge Plan Discharge Clinical Impression: Atypical chest pain Patient Disposition: Home, Self-Care Condition: Stable Additional Instructions: Okay to use ibuprofen as needed, heating pad to chest wall. Do not apply heat directly to skin. Recommend you follow-up with your primary care physician in the next week for recheck. In the meantime, can also start taking famotidine for Zantac, [id number], to see if this helps with your symptoms. 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 Prescriptions: No Action famciclovir 500 mg tablet 500 mg PO DAILY Qty: 60 4RF estradiol 0.05 mg/24 hr patch weekly 1 patch transdermal QWEEK Qty: 12 3RF Follow Up/Referrals: Zachary Green PA-C [Primary Care Provider] - Stand Alone Forms: [employer] Info Instructions
[2023-03-16 21:14] LABS: Albumin* 4.2 g/dL (3.3-5.0); Chloride* 103 mmol/L (96-114); Potassium* 4.5 mmol/L (3.6-5.1); Sodium* 135 mmol/L (135-149)
[2023-03-16 21:16] LABS: Creatinine* 0.7 mg/dL (0.5-1.5); Est. Creatinine Clearance* 77.49; Estimated Glomerular Filt Rate 101 ml/min
[2023-03-16 21:17] LABS: Alkaline Phosphatase* 61 U/L (40-150); Anion Gap 5 mEq/L (7-15); Aspartate Amino Transferase* 21 U/L (12-35); Bilirubin Total* 0.2 mg/dL (0.1-1.5); Blood Urea Nitrogen* 19 mg/dL (7-30); Carbon Dioxide* 27 mmol/L (20-32); Glucose* 100 mg/dL (60-115); Lipase* 120 U/L (23-300); Total Protein* 7.1 g/dL (6.0-8.3)
[2023-03-16 21:18] LABS: Alanine Aminotransferase* 19 U/L (4-35); Calcium* 9.9 mg/dL (8.4-10.6)
[2023-03-16 21:21] LABS: Basophils Absolute Auto 0.02 K/uL (0.00-0.30); Basophils Percent Auto 0.3 % (0.0-3.0); D Dimer Quantitative* < 0.27 ug/ml (0.00-0.50); Eosinophils Absolute Auto 0.19 K/uL (0.00-0.50); Eosinophils Percent Auto 2.5 % (0.0-7.0); Hematocrit 42.5 % (33.0-51.0); Hemoglobin* 14.1 gm/dL (12.0-16.0); Immature Granulocytes Abs Auto 0.01 K/uL (0.00-0.30); Immature Granulocytes Pct Auto 0.1 %; Mean Corpuscular HGB Conc 33 gm/dL (32-36); Mean Corpuscular Hemoglobin 31 pg (26-34); Mean Corpuscular Volume 93 fL (80-100); Monocytes Percent Auto 8.9 % (0.0-11.0); Neutrophils Percent Auto 41.2 % (42.0-72.0); Platelet Count* 252 K/uL (140-440); RDW Coefficient of Variation % 12.1 % (11.5-15.5); Red Blood Count 4.57 m/uL (4.00-5.20); White Blood Count* 7.56 K/uL (4.50-11.00)
[2023-03-16 21:22] LABS: Slide Review Reflex No
--- NOTE | 2023-03-16 21:35 | CRLHL7_ITS ---
For Patients: As a result of the Cures Act, medical imaging exams and procedure reports are released immediately into your electronic medical record. You may view this report before your referring provider. If you have questions, please contact your health care provider. INDICATION: Shortness of breath. TECHNIQUE: Chest 2 views. COMPARISON: January 03, 2023. FINDINGS: Cardiovascular and mediastinum: Cardiomediastinal silhouette is within normal limits. Lungs and pleural spaces: Lungs are clear. No sign of pleural effusion. No pneumothorax. Bones and soft tissues: No significant findings. IMPRESSION: No acute findings and no significant change from the prior exam. Dictated by Shasta Weinstein MD @ 03/16/2023 10:24:51 PM (Electronically Signed)
[2023-03-16 21:36] LABS: C Reactive Protein* < 0.5 mg/dL (0.5-1.0); Troponin I* < 0.01 ng/mL (0.01-0.04)
[2023-03-16 22:29] LABS: Lactate* 0.6 mmol/L (0.5-1.9)
== END 2023-03-16 23:10 | disposition home or self-care (01) ==
PROVIDERS: Emergency Provider Family Medicine; PCP Physician Assistant Medical
DX: R07.89 Other chest pain (principal)
CPT/HCPCS: 36415; 71046; 80048; 80076; 83605; 83690; 84484; 85025; 85379; 86140; 93005; 94761; 99284; 99285

== ENCOUNTER 2023-04-26 13:24 | Outpatient (CLI) | payer BC, SELFPAY ==
--- NOTE | 2023-04-26 13:20 | MM_ITS ---
Patient: SAVANNAH JOHNSON Facility:?[facility] Patient ID:?[id number] Site Patient ID:?[id number]. Site :?[id number] Study:?XRay-Breast Bilateral 3D W/CAD-04/26/2023 1:45:04 PM Ordering Physician:Frank Final Report: BILATERAL SCREENING MAMMOGRAM WITH COMPUTER-AIDED DETECTION AND TOMOSYNTHESIS TECHNIQUE: CC and MLO views were obtained. These mammographic images have been obtained using full-field digital technique. These mammographic images were interpreted with the benefit of computer-aided detection. Breast Tomosynthesis was used in this interpretation. COMPARISON FILM: 07/28/21, 09/04/19, 07/04/18. FINDINGS: There are scattered areas of fibroglandular density. IMPRESSION: There is no radiographic evidence for malignancy. ASSESSMENT: BI-RADS Category 1: Negative RECOMMENDATION: Routine screening mammogram in 1 year. A lay language report of this examination will be provided to the patient. Lj Pastrana M.D. Diagnostic Radiologist [email or web address] DSM/sp R& Transcribed: 5:46 p.m. SP/Dictated by: Lj Pastrana MD @ 04/27/2023 1:11:00 PM Signed by:?Lj Pastrana MD @04/28/2023 5:40:56 AM (Electronic Signature)
== END 2023-04-26 13:25 | disposition home or self-care (01) ==
LOC: MAMMO 13:25
PROVIDERS: PCP Physician Assistant Medical; Visit Provider Obstetrics & Gynecology
DX: Z12.31 Encounter for screening mammogram for malignant neoplasm of breast (principal)
CPT/HCPCS: 77063; 77067

== ENCOUNTER 2023-07-27 13:29 | Outpatient (CLI) | payer BC, SELFPAY ==
--- OUTSIDE RECORDS SUMMARY | 2023-08-12 18:02 | XMS_ITS | Continuity of Care Document ---
Author Organization [facility] Address [address] [address] [place] [address] Phone Care Team Providers Care Senior Medical Billing Specialist Name Role Phone Lyndsay Boothe Unavailable Unavailabl e Allergies, Adverse Reactions, Alerts Substance Reaction Status Criticality Penicillins Swelling Active No Information TAZOBACTAM SODIUM Swelling Active No Informa tion PIPERACILLIN SODIUM Swelling Active No Infor mation Medications Medication Instructions Dosage Effective Dates (start - stop) Status Comments Divigel 0.5 mg/0.5 gram (0.1 %) transdermal gel packet apply 1 patch to skin topically once weekly - Active PROBIOTIC (unknown strength) Take 1 by oral route once daily Not Available - Active Herbal Medications/Suppleme nts unknown Regular Girl. Fiber + Probiotic + Prebiotic.. Take 1 scoop mixed with water every morning - Active multivitamin tablet Take 2 tablet by oral route once daily - Active Herbal Medications/Suppleme nts unknown Regular Girl - Restore. Take 1 capsule by oral route once daily - Active Procedures Procedure Date Routine Serum Collection Office Cons New/estab Mod Advance Directives Directive Yes / No Effective Date File Name No Information Encounters Encounter Description Practice Location Reason(s) For Visit Diagnoses Date Provider Providers Copied on Encounter [facility], [address] [address], [place], [id number], [place] tel:[phone] [facility] No Information 2 Erik Umana . [address], [place], [id number] , [place]. [phone] Office Cons New/estab Mod [facility], [address] [address], [place], [id number], [place] tel:[phone] [facility] Symptoms or Concerns (chief complaint) RLQ abdominal painChronic constipationHistory of colonic diverticulitis 2 Erik Umana . [address], [facility] [address], [place], [id number] , [place]. [phone] Referring Provider: Zachary JENSEN, [address], [place], [address]. tel:[phone] [facility], [address] [address], [place], [id number], [place] tel:[phone] [facility] No Information 2 Eliezer Tobias. [address], [facility] [address], [place], [id number] , [place]. [phone] Family History Family Member Type Diagnosis Age At Onset No Information Immunizations Vaccine Date Status Comments SARS-COV-2 (COVID-19) vaccin e, mRNA, spike protein, LNP, preservative free, 100 mcg/0.5mL dose or 50 mcg/0.25mL dose administered Note: [facility] bi -directional interface ; Source: Other Registry SARS-COV-2 (COVID-19) vaccin e, mRNA, spike protein, LNP, preservative free, 100 mcg/0.5mL dose or 50 mcg/0.25mL dose administered Note: [facility] bi -directional interface ; Source: Other Registry SARS-COV-2 (COVID-19) vaccin e, mRNA, spike protein, LNP, preservative free, 100 mcg/0.5mL dose or 50 mcg/0.25mL dose administered Note: [facility] bi -directional interface ; Source: Other Registry Afluria Qd administered Note: [facility] bi-directional interface ; Source: Other Registry tetanus toxoid, reduced diphtheria toxoid, and acellular pertussis vaccine, adsorbed administered Note: [facility] b i-directional interface ; Source: Other Registry Havrix administered Note: [facility] bi-d irectional interface ; Source: Other Registry yellow fever vaccine administered Note: [facility] bi-directional interface ; Source: Other Registry influenza, live, intranasal, quadrivalent administered Note: [facility] bi-direct ional interface ; Source: Other Registry Novel [id number], all formulations administered Note: [facility] bi-direct ional interface ; Source: Other Registry Payers Payer name Insurance type Covered alliance party ID Authoriza timeño(s) [employer] [facility] [id number] Social History Type Description Quantity Date Captured Comments Alcohol Use Details Unknown Caffeine Use Details Unknown Tobacco Use Status No Information Smoking Status No Information Sex Female Chief Complaint And Reason For Visit No Information Reason For Referral Reason For Referral No Information Plan Of Treatment Date Type Action Status Referral Ordered: CT Abdomen And Pelvis WITH Contrast Appointment date/timeframe: 08/31/2021 ordered History Of Present Illness Encounter Date Complaint History Of Prese nt Illness GI Symptoms or Concerns This marcella dennis is a 55-year-old female seen today at the request of Zachary Green PA-C in consultation for chronic constipation and history of acute diverticulitis. Past medical history is significant for episode of diverticulitis in March of 2021, irritable bowel syndrome and a thyroid nodule. Patient also has a history of having 7 lymph nodes removed from her neck. I received 24 pages of records from her primary care providers which I have reviewed. Briefly, the patient was hospitalized in March for acute diverticulitis. She was initially started on Zosyn that experienced face swelling with this and was subsequently switched to ertapenem. CT scan was concerning for diverticulitis with contained perforation. Patient had a colonoscopy performed in August of 2019 and with 2 small polyps removed at that time. She was recently seen by her PCP for concern of constipation. Per PCP's note x-ray seemed to show significant stool and bowel however this was not the official radiologist's read. She was recommended to continue fiber supplement and MiraLax and start ciprofloxacin and metronidazole for diverticulitis. Patient reports she has struggled with intermittent constipation for years. In the past she has tried a low FODMAP diet, elimination diets, gluten free diet for 2 years not know which have been helpful. She also tries to limit dairy. In June she had an episode of constipation for 9 days that did not respond to MiraLax, fiber and stool softeners. She notes that her PCP prescribed her antibiotics and told her to continue the fiber and MiraLax. She reports she went on a trip to [place] and was hesitant to take the antibiotics so she did not. She notes her constipation then spontaneously resolved.Today patient reports she is having daily bowel movements she denies any loose stools or hard lumpy stools. Denies any melena or hematochezia. She does endorse some nausea but denies any vomiting. Blossom reports that she continues to have right lower quadrant pain however this is not as severe as when she presented to the hospital. She notes this radiates to the back.She does report that she has a history of thyroid nodule lesions noted this was initially cystic and has now become solid. She has had her thyroid function checked recently. 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 Functional Status Date Functional Assessmen t No Information Instructions Date Instruction Additional Infor mation No Information Assessments Type Assessment Date No Information Patient Care Teams Name Effective Dates (start - stop) Status Members No Information
--- OUTSIDE RECORDS SUMMARY | 2023-08-12 18:02 | XMS_ITS | Clinical Summary ---
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 Encounters Date Type Department Care Team Description 07/29/2023 Lab Requisition [facility] [phone] Amber Villasenor MD 06/07/2023 9:30 AM CDT Telemedicine [facility] [address] [place], [place] [phone] Erik Reynolds [address] Medical Nutrition Therapy; Telehealth from Last 3 Months Family History Medical History Relation Name Comments Genetic Other Glaucoma-Dad~Re tinal Detachment-Grandfather~Diabetic-Dad, Grandmother~HTN-Grandmother Relation Name Status Comments Other Social History Tobacco Use Types Packs/Day Years Used Date Smoking Tobacco: Former Comments:20 plus years ago Alcohol Use Standard Drinks/Week Comments Not Asked 0 (1 standard drink = 0.6 oz pur e alcohol) Alcoholic Drinks/day: 0.25 Sex and Gender Information Value Date Recorded Sex Assigned at Not on file Gender Identity Not on file Sexual Orientation Not on file Obstetrics History Last Filed Vital Signs Vital Sign Reading Time Taken Comments Blood Pressure 104/69 02/20/2016 11:06 AM WINDOWS MOBILE DEVELOPER Pulse 74 02/20/2016 11:06 AM WINDOWS MOBILE DEVELOPER Temperature - - Respiratory Rate - - Oxygen Saturation - - Inhaled Oxygen Concentration - - Weight 66.2 kg (146 lb) 04/06/2005 12:00 AM WINDOWS MOBILE DEVELOPER Height 162.6 cm (5' 4) 04/06/2005 12:00 AM WINDOWS MOBILE DEVELOPER Body Mass Index 25.06 04/06/2005 12:00 AM WINDOWS MOBILE DEVELOPER Plan of Treatment Upcoming Encounters Date Type Department Care Team (Late st Contact Info) Description 10/06/2023 9:[address] [facility] [address] [place] [address] Erik Reynolds, LN [address] [place] [address] Health Maintenance Due Date Last Done Comments Tdap 1977 Depression screening for age 12+ 1978 HIV for age 15-65 1981 BMI (ht and wt on same day) for age 18+ 1984 Hepatitis C screening for age 18-79 1984 Tetanus booster 1986 Colonoscopy through age 75 09/27/2011 Lipids for age 45-75 09/27/2011 Mammogram for age 45-75 09/27/2011 Zoster (shingles) series for age 50+ (1 of 2) 2016 COVID-19 vaccine series (2022- season) 2022 01/29/2021, 06/26/2020, 05/28/2020 Influenza for age 50-64 10/23/2023 Pap test for age 21-65 07/26/2026 , 07/27/2023, 06/22/2018, Additional history exists Pneumococcal series for age 6-64 Aged Out No longer eligible based on patient's age to complete this topic Procedures Procedure Name Priority Date/Time Associated Diagnosis Comments LAB TRACKING EVENT Routine 07/27/2023 2: 04 PM CDT MALL MANAGER THIN PREP PAP SCREEN IMAGED Routine 07/27/2023 2:04 PM CDT HPV THIN PREP Routine 07/27/2023 2:04 PM CDT from Last 3 Months Results * LAB TRACKING EVENT (07/27/2023 2:04 PM CDT) Other (Other) Client Collect / Unknown 07/27/2023 2:04 PM CDT 07/29/2023 9:06 AM CDT Amber Villasenor MD LAB BILL O NLY [facility] [address] [place] [address], * (ABNORMAL) MALL MANAGER THIN PREP PAP SCREEN IMAGED (07/27/2023 2:04 PM CDT) Case Report Gynecologic Cytology Report ? Case: [id number] ? Authorizing Provider: ??Amber Villasenor ??Collected: ? 07/27/2023 1404 ? M, MD ? Ordering Location: ? [facility] ?Received: ?07/29/2023 1348 ? First Screen: ?Baccam, Minie ? Pathologist: ? Cyndi Schmidt MD ? Specimen: ?MALL MANAGER ThinPrep Vial Screening, Cervical ? 08/08/2023 1:40 PM CDT [facility] INTERPRETATION/ RESULT ATYPICAL SQUAMOUS CELLS OF UNDETERMINED SIGNIFICANCE (ASCUS)(A) (none) 08/08/2023 1:40 PM CDT [facility] IMEN ADEQUACY Satisfactory for evaluation Endocervical component present 08/08/2023 1:40 PM CDT [facility] HPV REQUEST HPV and PAP 08/08/2023 1:40 PM CDT [facility] Date of LMP 08/08/2023 1:40 PM CDT [facility] Comment:IUD- Spotting Last Pap Date 07/02/2018 08/08/2023 1:40 PM CDT [facility] Last Pap Result NIL 1:40 PM CDT [facility] Abnormal Pap or [place] Bx in last 5 years No 08/08/2023 1:40 PM CDT [facility] Menstrual Status Perimenopausal 08/08/2023 1:40 PM CDT [facility] [place] Bx Done Today No 08/08/2023 1:40 PM CDT [facility] Additional Information 08/08/2023 1:40 PM CDT [facility] Comment: Interpreted at [facility] - [address], [place] [address] Automated Review Successful 08/08/2023 1:40 PM CDT [facility] Comment:Specimen processed s uccessfully by automated deicer inspector electric device, ThinPrep Imaging System, [employer] ANCILLARY TESTING MALL MANAGER HPV Ordered, Please see separate report 08/08/2023 1:40 PM CDT [facility] Note The pap test is a screening technique, not a diagnostic procedure. It is used primarily to screen for squamous cancers and precursor lesions. Published studies have shown that it is subject to both false negative and false positive results. The pap test should not be used as the sole means to diagnose or exclude pre-malignant and malignant lesions. 08/08/2023 1:40 PM CDT [facility] Other (Cervical) 07/27/2023 2:04 PM CDT 07/29/2023 1:48 PM CDT Amber Villasenor MD PATHOLOGY/ CYTOLOGY Performing Organization Address [facility] Co de Phone Number [facility] [address] [place] [address], * HPV HIGH RISK (07/27/2023 2:04 PM CDT) TYPE 16 Negative Negative 08/02/2023 8:04 AM CDT [facility] TYPE 18 Negative Negative 08/02/2023 8:04 AM CDT [facility] OTHER HIGH RISK TYPES Negative Negative 08/02/2023 8:04 AM CDT [facility] Other (Cervical) 07/27/2023 2:04 PM CDT 07/29/2023 1:[address] [facility] - 08/02/2023 8:04 AM CDT HPV types 16, 18, 31, 33, 35, 39, 45, 51, 52, 56, 58, 59, 66 and 68 DNA were undetectable or below the pre-set threshold. Methodology: Michelle Sterling 4800 HPV Test Amber Villasenor MD MICROBIOLO GY Performing Organization Address [facility] Co de Phone Number [facility] [address] [place] [phone], from Last 3 Months Care Teams Air Duct Mechanic Relationship Specialty Start Date End Date Joanna May Eulalio, ANU [address] [place], [place] [phone] PCP - General Physician Box Spinner 05/25/[address] [place] [place] [address] Tire Maker 01/18/23
== END 2023-07-27 13:30 | disposition home or self-care (01) ==
LOC: NFLDREF 08-12 18:01
PROVIDERS: PCP Physician Assistant Medical; Referring Provider Physician Assistant Medical; Visit Provider Obstetrics & Gynecology
DX: R39.15 Urgency of urination (principal); R35.0 Frequency of micturition
CPT/HCPCS: 87086

== ENCOUNTER 2025-01-09 10:45 | Outpatient (CLI) | payer BC, SELFPAY | END 2025-01-09 10:46 | disposition home or self-care (01) | LOC: NFLDREF 01-12 19:16 | PROVIDERS: PCP Physician Assistant Medical; Referring Provider Physician Assistant Medical; Visit Provider Obstetrics & Gynecology | DX: Z00.00 Encounter for general adult medical examination without abnormal findings (principal) | CPT/HCPCS: 80053; 80061; 84443 ==

== ENCOUNTER 2025-01-23 12:54 | Outpatient (CLI) | payer BC, SELFPAY ==
--- NOTE | 2025-01-23 13:00 | CRLHL7_ITS ---
For Patients: As a result of the Century Cures Act, medical imaging exams and procedure reports are released immediately into your electronic medical record. You may view this report before your referring provider. If you have questions, please contact your health care provider. BILATERAL DIGITAL SCREENING MAMMOGRAM WITH COMPUTER-AIDED DETECTION AND TOMOSYNTHESIS CLINICAL HISTORY: Routine screening exam. COMPARISON: 04/26/2023, 07/28/2021, 09/04/2019. TECHNIQUE: Digital mammogram in CC and MLO projections including computer-aided detection (CAD). Tomosynthesis was used in this interpretation. BREAST COMPOSITION: There are scattered areas of fibroglandular density. FINDINGS: RIGHT Breast: No suspicious findings. LEFT Breast: Focal asymmetric density in the upper LEFT breast MLO view only posterior depth. IMPRESSION: LEFT breast asymmetry/mass. RECOMMENDATIONS: Additional mammographic views of the LEFT breast including 3D spot compression MLO and 3D true lateral. LEFT breast ultrasound may also be required. The [facility] will contact the patient. A lay language report of this examination will be provided to the patient. BI-RADS Category 0: Incomplete: Need Additional Imaging Evaluation Dictated by Lj Pastrana MD @ 01/24/2025 9:01:10 AM /Dictated by: Lj Pastrana MD @ 01/24/2025 9:01:00 AM (Electronically Signed)
== END 2025-01-23 12:55 | disposition home or self-care (01) ==
LOC: MAMMO 12:54
PROVIDERS: PCP Physician Assistant Medical; Visit Provider Obstetrics & Gynecology
DX: Z12.31 Encounter for screening mammogram for malignant neoplasm of breast (principal); N63.20 Unspecified lump in the left breast, unspecified quadrant
CPT/HCPCS: 77063; 77067

== ENCOUNTER 2025-01-30 08:22 | Outpatient (CLI) | payer BC, SELFPAY ==
--- NOTE | 2025-01-30 08:45 | CRLHL7_ITS ---
For Patients: As a result of the Cures Act, medical imaging exams and procedure reports are released immediately into your electronic medical record. You may view this report before your referring provider. If you have questions, please contact your health care provider. DIGITAL DIAGNOSTIC LEFT MAMMOGRAM USING TOMOSYNTHESIS LEFT BREAST ULTRASOUND CLINICAL HISTORY: LEFT breast mass/asymmetry. COMPARISON: 01/23/2025, 04/26/2023, 07/28/2021. TECHNIQUE: Digital LEFT mammogram in two projections. Tomosynthesis was used in this interpretation. Real-time ultrasound imaging of LEFT breast with imaging documentation. Scanning was performed by both the technologist and the radiologist. BREAST COMPOSITION: There are scattered areas of fibroglandular density. FINDINGS: Additional mammogram images LEFT breast submitted. Decreased conspicuity of previously noted nodular density. On the spot compression image it does appear that there is central fat compatible with lymph node. No architectural distortion or suspicious calcifications. Targeted LEFT breast ultrasound performed at 11 o`clock 10 cm from the nipple. Normal fibroglandular tissue is present. No fibrocystic change. No suspicious mass. IMPRESSION: No evidence of malignancy. RECOMMENDATIONS: Routine screening mammography. A lay language report of this examination will be provided to the patient. BI-RADS Category 2: Benign Dictated by Lj Pastrana MD @ 01/30/2025 9:17:48 AM jj/Dictated by: Lj Pastrana MD @ 01/30/2025 9:17:00 AM (Electronically Signed)
--- NOTE | 2025-01-30 09:15 | CRLHL7_ITS ---
For Patients: As a result of the Cures Act, medical imaging exams and procedure reports are released immediately into your electronic medical record. You may view this report before your referring provider. If you have questions, please contact your health care provider. SEE DIGITAL DIAGNOSTIC LEFT MAMMOGRAM PERFORMED SAME DAY CRL:chencho piaz/Dictated by: Lj Pastrana MD @ 01/30/2025 9:42:00 AM (Electronically Signed)
== END 2025-01-30 08:23 | disposition home or self-care (01) ==
LOC: MAMMO 08:23
PROVIDERS: PCP Physician Assistant Medical; Visit Provider Obstetrics & Gynecology
DX: N63.20 Unspecified lump in the left breast, unspecified quadrant (principal); R92.8 Other abnormal and inconclusive findings on diagnostic imaging of breast
CPT/HCPCS: 76642; 77065; G0279